=== PATIENT | male | born 1935 | race Caucasian/White ===

== ENCOUNTER → 2016-08-17 | Outpatient (CLI) | payer OTHER ==
[~2016-08-17] MED LIST: ALFU10TA30 PO; CALC-20 PO; CALCTAB5 PO; ECRCR; GLCSUNK; GLUC10007 PO; MONT1TAB3 PO; NAPR1TAB9 PO; OMEG10007 PO; OXYC-57 PO; POLY1SOL6 OPB; PSYLCAP5 PO; SYSTANE ULTRA EYE OPB; metamucil PO
--- NOTE | 2016-08-23 08:18 | CODING QUERY MEDICAL NECESSITY ---
SUPPORTING DIAGNOSIS NEEDED A supporting diagnosis is required for the test/procedure performed on this patient in order for us to be reimbursed by the patient's insurance. Please provide a supporting diagnosis for the following test/procedure listed below next to the test name along with your signature. *If there is no additional diagnosis for this patient that would support the following test/procedure please document that below next to the test/procedure. Test(s)/Procedure(s) that require a supporting diagnosis: * PSA DIAGNOSIS: * DOS: 08/17/16 Provider Signature: Date: Thank you Kavitha Franco [employer] Once completed, please kindly fax back to [phone] For questions please call [phone]
== END | disposition home or self-care (01) ==
LOC: C.LABPVFM 11:07
PROVIDERS: ATTEND Urology
DX: R39.9 Unspecified symptoms and signs involving the genitourinary system (principal); C61 Malignant neoplasm of prostate

== ENCOUNTER → 2016-09-30 | Outpatient (CLI) | payer OTHER ==
[~2016-09-30] MED LIST changes: +ALFU10TA2 PO; -ALFU10TA30 PO
--- NOTE | 2016-09-30 13:58 | DIAGNOSTIC IMAGING REPORT ---
CHEST 2 VIEWS ROUTINE HISTORY: COUGH COMPARISON: Chest 05/28/2015. FINDINGS: No pleural effusions. No pneumothorax. Left basilar calcified pleural plaques are again noted. The heart is normal in size. Progressive interstitial thickening. This is most pronounced within the periphery and lung bases. This suggests fibrotic change. There is also a small peripheral airspace opacity within the right mid to lower lung zone. This is new from the prior study. IMPRESSION: 1. Progressive interstitial thickening suggestive of fibrosis. 2. There is also a new small peripheral airspace opacity within the right mid to lower lung zone. This could be due to the fibrotic change. However, a superimposed pneumonia would also have a similar appearance. One month chest x-ray follow is recommended to ensure resolution. Electronically signed by: Hossein Hurd M.D. 09/30/2016 1:56 PM Dictated Date/Time: 09/30/2016 1:51 PM
== END | disposition home or self-care (01) ==
LOC: C.RADPV 13:39
PROVIDERS: ATTEND Family Medicine
DX: R05 Cough (principal)

== ENCOUNTER → 2016-11-29 | Outpatient (CLI) | payer OTHER ==
--- NOTE | 2016-11-29 14:46 | DIAGNOSTIC IMAGING REPORT ---
CHEST 2 VIEWS ROUTINE CLINICAL HISTORY: Abnormal chest radiograph. COMPARISON STUDY: Chest radiograph September 30, 2016. FINDINGS: Several pleural plaques are noted. A 2.8 cm left lower lung density likely reflects a pleural plaque. There has been interval development of a 1.6 cm nodular opacity within left upper lobe since exam of September 30, 2016. The previously described opacity within the lateral aspect of the right midlung is less conspicuous. Cardiac size is normal. There is no evidence of pulmonary edema. Diffuse interstitial thickening is noted. There is no pneumothorax or pleural effusion. IMPRESSION: 1. Mild improvement in the peripheral airspace opacity within the right mid lung since prior exam. This favors an improving infectious process, possibly superimposed upon interstitial lung disease. 2. Interval development of a 1.6 cm nodular density within left lung apex. This favors an infectious process. However, PA and lateral radiographs in one month are recommended to ensure resolution. Electronically signed by: Arsh Vázquez M.D. 11/29/2016 2:44 PM Dictated Date/Time: 11/29/2016 2:37 PM
== END | disposition home or self-care (01) ==
LOC: C.RADPV 14:15
PROVIDERS: ATTEND Family Medicine
DX: R93.8 Abnormal findings on diagnostic imaging of other specified body structures (principal)

== ENCOUNTER → 2016-12-07 | Outpatient (CLI) | payer OTHER ==
--- NOTE | 2016-12-07 10:14 | DIAGNOSTIC IMAGING REPORT ---
CHEST CT WITHOUT CONTRAST CT DOSE: 307.93 mGy.cm HISTORY: Asbestos exposure R91.1 Lung nodule History of asbestos [id number] TECHNIQUE: Multiaxial CT images of the chest were performed without contrast. COMPARISON: None. FINDINGS: Emphysematous change. Chronic fibrotic change throughout the right basilar regions as well as mid to upper lung regions bilaterally. No evidence for significant nodular pathology. Calcified pleural plaques over the left diaphragmatic region. IMPRESSION: 1. Emphysematous change with evidence for interstitial and fibrotic change throughout both hemithoraces. 2. The bulk of these findings are most likely chronic although prior studies are not directly available for comparison. 3. Calcified pleural plaques overlying the left diaphragm Electronically signed by: Efrem Machuca M.D. 12/07/2016 10:13 AM Dictated Date/Time: 12/07/2016 10:11 AM
== END | disposition home or self-care (01) ==
LOC: C.CTS 09:48
PROVIDERS: ATTEND Family Medicine
DX: R91.1 Solitary pulmonary nodule (principal); J92.9 Pleural plaque without asbestos

== ENCOUNTER 2016-12-08 20:58 | Inpatient (IN) | payer OTHER ==
[~2016-12-08] VITALS: Ht 180.3 cm; Wt 76.1 kg
[~2016-12-08 20:58] MED LIST changes: -CALC-20 PO; -GLUC10007 PO; -OXYC-57 PO; -POLY1SOL6 OPB; -PSYLCAP5 PO
--- NOTE | 2016-12-08 22:10 | EMERGENCY ROOM VISIT NOTE ---
History Report prepared by Ronnie: Sharan Viera Under the Supervision of: Dr. Domingo Reid D.O. First contact with patient: 21:45 Chief Complaint: URINARY SYMPTOMS Stated Complaint: LOWER ABDOMINAL PAIN Nursing Triage Summary: "I think my bladder is overfull. I haven't peed much today and I'm having a lot of pain down there", started today. Pt reports prastate CA, "I've always had a weak stream, but after radiation it got worse". History of Present Illness The patient is an 81 year old male who presents to the Emergency Room with complaints of constant, suprapubic, abdominal pain beginning 4.5 hours ago. He currently rates his discomfort an 8/10 in severity. The patient states that he was siting at the dinner table eating, and all of a sudden he had excruciating pain in his suprapubic abdominal region. He reports that he tried using the restroom, and he could not. The patient notes that he was finally able to have a bowel movement, but he did not urinate as much as normal. He states that he has not been able to urinate all day. The patient reports he has a history of prostate cancer and received chemotherapy, and radiation. He notes that last time he had a catheter in was when he was going through treatment. The patient states that he saw his urologist 2 months ago. He notes that he was recently taking antibiotics for influenza and pneumonia. The patient reports that he is taking prostate medication, but no blood thinners. He denies back pain. Source of History: patient Onset: 4.5 hours ago Position: abdomen (suprapubic) Symptom Intensity: 8/10 Timing: constant Associated Symptoms: + urinary symptoms, No back pain Review of Systems See HPI for pertinent positives & negatives. A total of 10 systems reviewed and were otherwise negative. Past Medical & Surgical Medical Problems: (1) Prostate cancer Surgical Problems: (1) S/P inguinal hernia repair Family History Heart disease Social History Smoking Status: Former Smoker Alcohol Use: other (1 glass of wine daily) Housing Status: lives with significant other Occupation Status: retired Current/Historical Medications Scheduled Alfuzosin Hcl (Uroxatral), 10 MG PO DAILY Calcium Carbonate-Vitamin D (Calcium 600 + D), 1 TAB PO BID Fish Oil ([place]-3), 1 CAP PO QAM Glucosamine Sulfate (Glucosamine), 1,000 MG PO BID Montelukast Sodium (Singulair), 10 MG PO DAILY Naproxen (Aleve), 220 MG PO prn Polyethylene Glycol-Propylene (Systane Ultra), 1 DROPS OPB BID Psyllium W/ Calcium (Metamucil Plus Calcium), 2 CAP PO HS Allergies Coded Allergies: Gluten Flour (Verified Allergy, Intermediate, rash, 12/08/16) Physical Exam Vital Signs Date Time Temp Pulse Resp B/P (MAP) Pulse Ox O2 Delivery O2 Flow Rate FiO2 12/09/16 04:00 90 18 142/74 (71) 94 Room Air 12/09/16 03:50 92 19 121/66 (71) 95 Room Air 12/09/16 03:40 85 17 114/64 (71) 96 Nasal Cannula 2 12/09/16 03:30 36.0 88 17 106/71 (71) 100 Mask 4 12/09/16 00:01 78 16 149/91 96 Room Air 12/08/16 23:58 74 16 12/08/16 23:28 68 14 152/96 12/08/16 23:27 72 12/08/16 23:26 85 18 152/96 97 Room Air 12/08/16 21:00 36.5 77 18 179/87 96 Room Air Physical Exam GENERAL: Patient is awake, alert, and in no acute distress. Patient is resting comfortably and showing no signs of anxiety EYES: The conjunctivae are clear. The pupils are round and reactive. EARS, NOSE, MOUTH AND THROAT: The nose is without any evidence of any deformity. Mucous membranes are moist tongue is midline NECK: The neck is nontender and supple. RESPIRATORY: Normal respiratory effort is noted there is no evidence of wheezing rhonchi or rales CARDIOVASCULAR: Regular rate and rhythm noted there no murmurs rubs or gallops normal S1 normal S2 GASTROINTESTINAL: The abdomen is soft and mildly distended. Suprapubic abdomen is tender to palpation. Bowel sounds are present in all quadrants. Right inguinal hernia appreciated, difficult to reduce, patient has a large amount of tenderness to this area. BACK: No midline tenderness or or step-off noted range of motion in flexion extension as well as rotation no signs of muscle spasm noted MUSCULOSKELETAL/EXTREMITIES: There is no evidence of gross deformity full range of motion is noted in the hips and shoulders SKIN: There is no obvious evidence of any rash. There are no petechiae, pallor or cyanosis noted. NEUROLOGIC: Patient is awake alert and oriented x3 strength is symmetric patellar reflexes are 2+ bilaterally Medical Decision & Procedures ER Provider Diagnostic Interpretation: CT results as stated below per my review and radiologist interpretation. CT ABDOMEN & PELVIS Right inguinal hernia containing small bowel with resultant small bowel obstruction. Small bowel within the right inguinal hernia appears mildly thickened with small adjacent fluid and stranding which can be seen in the setting of incarceration and/or strangulation. No pneumatosis or free air. Recommended clinical correlation and surgical consultation for further management. Interstitial prominence in the visualized lung bases (R>L) which may be related to chronic lung disease although superimposed acute interstitial process is not excluded. Pleural based calcifications in the visualized lower thorax. Correlate for history of asbestos exposure. Postsurgical changes in the prostate bed. Osseous degenerative changes and scoliosis of the spine. Atherosclerotic vascular disease. No AAA. Radiologist: Honey Lawrence MD Study ready at 23:45 and inital results transmitted at 00:27. Laboratory Results 12/08/16 23:15 Red Blood Count 3.98, Mean Corpuscular Volume 93.5, Mean Corpuscular Hemoglobin 32.7, Mean Corpuscular Hemoglobin Concent 34.9, Mean Platelet Volume 8.5, Neutrophils (%) (Auto) 88.7, Lymphocytes (%) (Auto) 7.4, Monocytes (%) (Auto) 3.0, Eosinophils (%) (Auto) 0.2, Basophils (%) (Auto) 0.2, Neutrophils # (Auto) 8.07, Lymphocytes # (Auto) 0.67, Monocytes # (Auto) 0.27, Eosinophils # (Auto) 0.02, Basophils # (Auto) 0.02 12/08/16 23:15 Test 12/08/16 22:36 12/08/16 23:15 Urine Color YELLOW Urine Appearance CLEAR (CLEAR) Urine pH 5.5 (4.5-7.5) Urine Specific [place] 1.026 (1.000-1.030) Urine Protein NEG (NEG) Urine Glucose (UA) NEG (NEG) Urine Ketones 1+ (NEG) Urine Occult Blood NEG (NEG) Urine Nitrite NEG (NEG) Urine Bilirubin NEG (NEG) Urine Urobilinogen NEG (NEG) Urine Leukocyte Esterase NEG (NEG) Urine WBC (Auto) 1-5 /hpf (0-5) Urine RBC (Auto) 0-4 /hpf (0-4) Urine Hyaline Casts (Auto) 1-5 /lpf (0-5) Urine Epithelial Cells (Auto) 20-30 /lpf (0-5) Urine Bacteria (Auto) NEG (NEG) White Blood Count 9.10 K/uL (4.8-10.8) Red Blood Count 3.98 M/uL (4.7-6.1) Hemoglobin 13.0 g/dL (14.0-18.0) Hematocrit 37.2 % (42-52) Mean Corpuscular Volume 93.5 fL (80-100) Mean Corpuscular Hemoglobin 32.7 pg (25-34) Mean Corpuscular Hemoglobin Concent 34.9 g/dl (32-36) Platelet Count 237 K/uL (130-400) Mean Platelet Volume 8.5 fL (7.4-10.4) Neutrophils (%) (Auto) 88.7 % Lymphocytes (%) (Auto) 7.4 % Monocytes (%) (Auto) 3.0 % Eosinophils (%) (Auto) 0.2 % Basophils (%) (Auto) 0.2 % Neutrophils # (Auto) 8.07 K/uL (1.4-6.5) Lymphocytes # (Auto) 0.67 K/uL (1.2-3.4) Monocytes # (Auto) 0.27 K/uL (0.11-0.59) Eosinophils # (Auto) 0.02 K/uL (0-0.5) Basophils # (Auto) 0.02 K/uL (0-0.2) RDW Standard Deviation 48.3 fL (36.4-46.3) RDW Coefficient of Variation 14.0 % (11.5-14.5) Immature Granulocyte % (Auto) 0.5 % Immature Granulocyte # (Auto) 0.05 K/uL (0.00-0.02) Prothrombin Time 11.5 SECONDS (9.0-12.0) Prothromb Time International Ratio 1.1 (0.9-1.1) Activated Partial Thromboplast Time 25.0 SECONDS (21.0-31.0) Partial Thromboplastin Ratio 1.0 Anion Gap 8.0 mmol/L (3-11) Est Creatinine Clear Calc Drug Dose 57.0 ml/min Estimated GFR () 73.1 Estimated GFR (Non- 63.1 BUN/Creatinine Ratio 19.4 (10-20) Calcium Level 8.9 mg/dl (8.5-10.1) Total Bilirubin 0.5 mg/dl (0.2-1) Direct Bilirubin 0.1 mg/dl (0-0.2) Aspartate Amino Transf (AST/SGOT) 23 U/L (15-37) Alanine Aminotransferase (ALT/SGPT) 24 U/L (12-78) Alkaline Phosphatase 59 U/L (45-117) Total Protein 8.1 gm/dl (6.4-8.2) Albumin 4.1 gm/dl (3.4-5.0) Lipase 107 U/L (73-393) Laboratory results per my review. Medications Administered Medications (Trade) Dose Ordered Sig/Giovanny Route Start Time Stop Time Status Last Admin Dose Admin Sodium Chloride 1,000 ml @ 999 mls/hr Q1H1M STAT IV 12/08/16 22:53 12/08/16 23:53 DC 12/08/16 23:23 999 MLS/HR Ondansetron HCl (Zofran Inj) 4 mg NOW STAT IV 12/08/16 22:53 12/08/16 22:55 DC 12/08/16 23:23 4 MG Morphine Sulfate (MoRPHine SULFATE INJ) 4 mg Q15M PRN IV 12/08/16 23:00 12/09/16 04:34 DC 12/08/16 23:23 4 MG Bupivacaine HCl (Marcaine 0.5% MPF Inj) 30 ml STK-MED ONCE .ROUTE 12/09/16 00:51 12/09/16 00:52 DC 12/09/16 03:15 24 ML ED Course 2151: The patient was evaluated in room A03. A complete history and physical examination were performed. 2253: Ordered Zofran Inj 4mg IV, NSS 1,000 ml @ 999 mls/hr IV 2300: Ordered Morphine Sulfate 4mg IV 0000: I discussed the patients case with Dr. Alonso, General Surgery. He will evaluate the patient for further treatment. Medical Decision Differential diagnosis: Etiologies such as appendicitis, diverticulitis, PUD, biliary pathology, UTI, pancreatitis, obstruction, mesenteric ischemia, aortic pathology, infections, inflammatory bowel disease, renal colic, as well as others were entertained. Medication Reconciliation: I attest that I have personally reviewed the patient' s current medications list. Patient was found to have a slightly elevated blood pressure due to circumstances. I do not believe that the patient requires hypertension monitoring. The patient is an 81-year-old male who presented to the emergency department with difficulty urinating. The patient states he had a large bowel movement afterwards had difficulty urinating. He thought he was in urinary retention however cath urine as well as bladder scan revealed he was not in urinary retention. He was found have a large inguinal hernia which on CAT scan appears to have signs of small bowel instruction. He had surgical repair of this area and I do feel this is why I was unable to reduce the hernia. I discussed his case with the on-call general surgeon. He was treated with IV fluids IV pain medicine and IV antiemetics. He was evaluated in the emergency apartment and felt to be a candidate for surgical intervention. Consults Time Called: [id number] Consulting Physician: Dr. Alonso, General Surgery Returned Call: 0000 I discussed the patients case with Dr. Alonso, General Surgery. He will evaluate the patient for further treatment. Impression Primary Impression: Incarcerated right inguinal hernia Additional Impression: Small bowel obstruction Scribe Attestation The scribe's documentation has been prepared under my direction and personally reviewed by me in its entirety. I confirm that the note above accurately reflects all work, treatment, procedures, and medical decision making performed by me. Departure Information Dispostion Being Evaluated By Surgeon Referrals No Doctor, Assigned (PCP) Patient Instructions My [facility] Problem Qualifiers
[2016-12-08] MEDS ORDERED: POLY1SOL6 OPB (22:45)
[2016-12-08] MEDS ORDERED: CALC-20 PO (22:45)
[2016-12-08] MEDS ORDERED: PSYLCAP5 PO (22:45)
[2016-12-08] MEDS ORDERED: GLUC10007 PO (22:45)
[2016-12-08 22:51] LABS: URINE APPEARANCE CLEAR (CLEAR); URINE BILIRUBIN NEG (NEG); URINE COLOR YELLOW; URINE EPITHELIAL CELL AUTO 20-30 /lpf (0-5); URINE NITRITE NEG (NEG); URINE PH 5.5 (4.5-7.5); URINE SPECIFIC GRAVITY 1.026 (1.000-1.030); UROBILINOGEN NEG (NEG)
[2016-12-08 22:52] LABS: MANUAL MICROSCOPIC REQUIRED? NO; REVIEW REQ? NO
[2016-12-08] MEDS ORDERED: SODIUM CHLORIDE 0.9% 1000ML 1,000 ML IV STA (22:53)
[2016-12-08] MEDS ORDERED: ONDANSETRON INJ 2 MG/ML 2 ML VIAL IV STA (22:53)
[2016-12-08] MEDS ORDERED: MoRPHine SULFATE 4 MG/ML 1 ML CARP\\VIAL IV PRN (23:00)
[2016-12-08 23:31] LABS: BASO % 0.2 %; BASO ABS # 0.02 K/uL (0-0.2); COMPLETE YES; EOS % 0.2 %; HEMATOCRIT 37.2 % (42-52); IG% 0.5 %; LYMPH % 7.4 %; LYMPH ABS # 0.67 K/uL (1.2-3.4); MEAN CELL VOLUME 93.5 fL (80-100); MEAN CORPUSCULAR HEMOGLOBIN 32.7 pg (25-34); MEAN CORPUSCULAR HGB CONC 34.9 g/dl (32-36); MEAN PLATELET VOLUME 8.5 fL (7.4-10.4); NEUT % 88.7 %; PLATELET COUNT 237 K/uL (130-400); RED BLOOD COUNT 3.98 M/uL (4.7-6.1)
[2016-12-08 23:40] LABS: INR 1.1 (0.9-1.1); PROTHROMBIN TIME (PATIENT) 11.5 SECONDS (9.0-12.0)
[2016-12-08 23:52] LABS: BUN/CREATININE RATIO 19.4 (10-20); CALCIUM 8.9 mg/dl (8.5-10.1); CREATININE 1.1 mg/dl (0.60-1.40); POTASSIUM 4.2 mmol/L (3.5-5.1)
[2016-12-09] VITALS (8 sets, daily range): BP systolic 116–161; BP diastolic 57–74; PULSE 70–85; TEMP 36.4–37; O2SAT 94–96; Ht 180.3 cm; Wt 76.1 kg
--- NOTE | 2016-12-09 00:42 | History and Physical ---
History & Physical Date & Time of Service: Dec 09, 2016 at 00:19 Chief Complaint: Lower Abdominal Pain Primary Care Physician: Jhonatan Jennings M.D. History of Present Illness Source: patient, spouse 81 y/o male developed abdominal pain in the lower abdomen that began about 7 hours ago. It was mostly midline initially. He was having trouble passing his urine as well. He had a normal bm without blood or melena. He had a hernia repair on the right side in 1989. He has noted a recurrence for a long time but it was always reducible. He noted that the hernia is now protruding farther than it usually does and is harder. It is tender to palpation and that is usually not the case. He had nausea earlier and had one episode of vomiting. He has not had fever. He denies dysuria and hematuria. Catheter passed in ER with drainage of 275 cc. Past Medical/Surgical History Medical Problems: (1) Prostate cancer Permanent Comment: Adenocarcinoma the prostate presenting PSA 1.0, clinical stage T2 [id number] Status post biopsies, Mccool grade 3+3, biopsy stage [id number] Status post seed implant for cesium 131 on 01/08/2008 received 8500 cGy Status post completion of radiation therapy with IMRT/IGRT completed 04/11/2008 received 4500 cGy Status: Resolved PSH: T&A Right inguinal hernia repair Family History Heart disease Social History Smoking Status: Former Smoker Smokeless Tobacco Use: No Alcohol Use: Red wine with dinner Occupational Status: retired Multi-Drug Resistant Organisms History of MDRO: No Allergies Coded Allergies: Gluten Flour (Verified Allergy, Intermediate, rash, 12/08/16) Home Medications Scheduled Alfuzosin Hcl (Uroxatral), 10 MG PO DAILY Calcium Carbonate-Vitamin D (Calcium 600 + D), 1 TAB PO BID Fish Oil ([place]-3), 1 CAP PO QAM Glucosamine Sulfate (Glucosamine), 1,000 MG PO BID Montelukast Sodium (Singulair), 10 MG PO DAILY Naproxen (Aleve), 220 MG PO prn Polyethylene Glycol-Propylene (Systane Ultra), 1 DROPS OPB BID Psyllium W/ Calcium (Metamucil Plus Calcium), 2 CAP PO HS Review of Systems Constitutional: No fever, No chills Cardiovascular: No chest pain Abdomen: + problem reported (as per HPI) Genitourinary - Male: + problem reported (as per HPI) Neurologic: No memory loss Endocrine: No fatigue Hematologic / Lymphatic: No abnormal bleeding/bruising Integumentary: No rash Physical Exam Vital Signs Date Time Temp Pulse Resp B/P (MAP) Pulse Ox O2 Delivery O2 Flow Rate FiO2 12/09/16 00:01 78 16 149/91 96 Room Air 12/08/16 23:58 74 16 12/08/16 23:28 68 14 152/96 12/08/16 23:27 72 12/08/16 23:26 85 18 152/96 97 Room Air 12/08/16 21:00 36.5 77 18 179/87 96 Room Air General Appearance: WD/WN Head: normocephalic Neck: supple, no adenopathy Respiratory/Chest: chest non-tender, lungs clear Cardiovascular: regular rate, rhythm Abdomen/GI: normal bowel sounds, soft, + pertinent finding (right inguinal hernia not reducible, firm) Genitourinary - Male: normal male genitalia Back: normal inspection, no CVA tenderness Extremities/Musculoskelatal: normal inspection Diagnostics Laboratory Results Results Past 24 Hours Test 12/08/16 22:36 12/08/16 23:15 Range/Units Urine Color YELLOW Urine Appearance CLEAR CLEAR Urine pH 5.5 4.5-7.5 Urine Specific [place] 1.026 1.000-1.030 Urine Protein NEG NEG Urine Glucose (UA) NEG NEG Urine Ketones 1+ NEG Urine Occult Blood NEG NEG Urine Nitrite NEG NEG Urine Bilirubin NEG NEG Urine Urobilinogen NEG NEG Urine Leukocyte Esterase NEG NEG Urine WBC (Auto) 1-5 0-5 /hpf Urine RBC (Auto) 0-4 0-4 /hpf Urine Hyaline Casts (Auto) 1-5 0-5 /lpf Urine Epithelial Cells (Auto) 20-30 0-5 /lpf Urine Bacteria (Auto) NEG NEG White Blood Count 9.10 4.8-10.8 K/uL Red Blood Count 3.98 4.7-6.1 M/uL Hemoglobin 13.0 14.0-18.0 g/dL Hematocrit 37.2 42-52 % Mean Corpuscular Volume 93.5 80-100 fL Mean Corpuscular Hemoglobin 32.7 25-34 pg Mean Corpuscular Hemoglobin Concent 34.9 32-36 g/dl Platelet Count 237 130-400 K/uL Mean Platelet Volume 8.5 7.4-10.4 fL Neutrophils (%) (Auto) 88.7 % Lymphocytes (%) (Auto) 7.4 % Monocytes (%) (Auto) 3.0 % Eosinophils (%) (Auto) 0.2 % Basophils (%) (Auto) 0.2 % Neutrophils # (Auto) 8.07 1.4-6.5 K/uL Lymphocytes # (Auto) 0.67 1.2-3.4 K/uL Monocytes # (Auto) 0.27 0.11-0.59 K/uL Eosinophils # (Auto) 0.02 0-0.5 K/uL Basophils # (Auto) 0.02 0-0.2 K/uL RDW Standard Deviation 48.3 36.4-46.3 fL RDW Coefficient of Variation 14.0 11.5-14.5 % Immature Granulocyte % (Auto) 0.5 % Immature Granulocyte # (Auto) 0.05 0.00-0.02 K/uL Prothrombin Time 11.5 9.0-12.0 SECONDS Prothromb Time International Ratio 1.1 0.9-1.1 Activated Partial Thromboplast Time 25.0 21.0-31.0 SECONDS Partial Thromboplastin Ratio 1.0 Sodium Level 136 136-145 mmol/L Potassium Level 4.2 3.5-5.1 mmol/L Chloride Level 103 98-107 mmol/L Carbon Dioxide Level 25 21-32 mmol/L Anion Gap 8.0 3-11 mmol/L Blood Urea Nitrogen 21 7-18 mg/dl Creatinine 1.10 0.60-1.40 mg/dl Est Creatinine Clear Calc Drug Dose 57.0 ml/min Estimated GFR () 73.1 Estimated GFR (Non- 63.1 BUN/Creatinine Ratio 19.4 10-20 Random Glucose 140 70-99 mg/dl Calcium Level 8.9 8.5-10.1 mg/dl Total Bilirubin 0.5 0.2-1 mg/dl Direct Bilirubin 0.1 0-0.2 mg/dl Aspartate Amino Transf (AST/SGOT) 23 15-37 U/L Alanine Aminotransferase (ALT/SGPT) 24 12-78 U/L Alkaline Phosphatase 59 45-117 U/L Total Protein 8.1 6.4-8.2 gm/dl Albumin 4.1 3.4-5.0 gm/dl Lipase 107 73-393 U/L Microbiology Results 12/08/16 Urine Culture, Received Pending Diagnostic Radiology CT abdomen and pelvis: Right inguinal hernia containing bowel with resultant SBO proximal to the hernia. Small bowel wall thickening. Impression Assessment and Plan Incarcerated recurrent right inguinal hernia. I explained that this will need to be repaired. I explained the procedure and the possible complications and the possible need to remove bowel if it appears to be compromised. I answered their questions and he has signed a consent form.
[2016-12-09] MEDS ORDERED: LIDOCAINE HCL 1% 20 ML VIAL ONE (00:51)
[2016-12-09] MEDS ORDERED: BUPIVACAINE 0.5 % 5 MG/1 ML MPF 30ML VIAL ONE (00:51)
[2016-12-09] MEDS ORDERED: FENTANYL CITRATE INJ 50 MCG/1 ML 2 ML VIAL ONE ×2 (00:57→03:11)
[2016-12-09] MEDS ORDERED: DEXAMETHASONE SOD INJ 4 MG/ML VIAL ONE (00:59)
[2016-12-09] MEDS ORDERED: PROPOFOL IV EMULSION 10 MG/ML 20 ML VIAL IV ONE (00:59)
[2016-12-09] MEDS ORDERED: SUCCINYLCHOLINE 100MG/5ML SYR IV ONE (00:59)
[2016-12-09] MEDS ORDERED: LIDOCAINE HCL 2% 2 ML VIAL (20MG/ML) ONE (00:59)
[2016-12-09] MEDS ORDERED: ONDANSETRON INJ 2 MG/ML 2 ML VIAL IV PRN ×2 (01:00→04:00)
[2016-12-09] MEDS ORDERED: MEPERIDINE HCL 25 MG/ML CARP IV PRN (01:00)
[2016-12-09] MEDS ORDERED: LABETALOL HCL IV 5 MG/ML 20ML IV PRN (01:00)
[2016-12-09] MEDS ORDERED: NALOXONE HCL 0.4 MG/1 ML VIAL/CARP IV PRN (01:00)
[2016-12-09] MEDS ORDERED: FLUMAZENIL 0.1 MG/1 ML 10 ML VIAL IV PRN (01:00)
[2016-12-09] MEDS ORDERED: ATROPINE SULFATE 0.1 MG/ML 5ML SYR IV PRN (01:00)
[2016-12-09] MEDS ORDERED: FENTANYL CITRATE INJ 50 MCG/1 ML 2 ML VIAL IV PRN (01:00)
[2016-12-09] MEDS ORDERED: PHENYLEPHRINE 100MCG/ML 5ML SYR IV PRN (01:00)
[2016-12-09] MEDS ORDERED: ONDANSETRON INJ 2 MG/ML 2 ML VIAL ONE (01:00)
[2016-12-09] MEDS ORDERED: HYDROmorphone INJ 2 MG/ML SYR/VIAL IV PRN (01:00)
[2016-12-09] MEDS ORDERED: EpHEDrine SULFATE INJ 50 MG/ML AMP IV PRN (01:00)
[2016-12-09] MEDS ORDERED: CEFAZOLIN SOD 1 GM VIAL ONE (01:25)
[2016-12-09] MEDS ORDERED: NEOSTIGMINE METHYLSULFATE 5 MG/5 ML SYR ONE (01:56)
[2016-12-09] MEDS ORDERED: GLYCOPYRROLATE INJ 0.2 MG/ML VIAL ONE (01:56)
--- NOTE | 2016-12-09 03:58 | Anesthesiology Progress Note ---
Anesthesia Post Op Note Date & Time Dec 09, 2016 at 03:57 Vital Signs Pain Intensity: 2 Vital Signs Past 12 Hours Date Time Temp Pulse Resp B/P (MAP) Pulse Ox O2 Delivery O2 Flow Rate FiO2 12/09/16 03:50 92 19 121/66 (71) 95 Room Air 12/09/16 03:40 85 17 114/64 (71) 96 Nasal Cannula 2 12/09/16 03:30 36.0 88 17 106/71 (71) 100 Mask 4 12/09/16 00:01 78 16 149/91 96 Room Air 12/08/16 23:58 74 16 12/08/16 23:28 68 14 152/96 12/08/16 23:27 72 12/08/16 23:26 85 18 152/96 97 Room Air 12/08/16 21:00 36.5 77 18 179/87 96 Room Air Notes Mental Status: alert / awake / arousable, participated in evaluation Pt Amnestic to Procedure: Yes Nausea / Vomiting: adequately controlled Pain: adequately controlled Airway Patency, RR, SpO2: stable & adequate BP & HR: stable & adequate Hydration State: stable & adequate Anesthetic Complications: no major complications apparent
[2016-12-09] MEDS ORDERED: MoRPHine SULFATE 4 MG/ML 1 ML CARP\\VIAL IV PRN (04:00)
--- NOTE | 2016-12-09 04:05 | [facility] Post Operative Brief Note ---
Immediate Operative Summary Operative Date Dec 09, 2016. Pre-Operative Diagnosis Incarcerated recurrent right inguinal hernia Post-Operative Diagnosis Incarcerated recurrent right inguinal hernia Procedure(s) Performed Open Incarcerated Recurrent Direct Right Inguinal Hernia Repair and Reduction; Partial Small Bowel Resection Surgeon Dr. Alonso Net Maker Surgeon(s) None Estimated Blood Loss 20 mL Findings See dictation Specimens A: Right Inguinal Hernia Sac B: Portion of Small Bowel Drains None Anesthesia General Complication(s) None Disposition Recovery Room / PACU
[2016-12-09] MEDS ORDERED: CEFOXITIN 2000MG/60 ML D5W IV STA (04:40)
[2016-12-09] MEDS: D5W AND 1/2NSS + 20MEQ KCL 1,000 ML IV SCH ×2 (05:16→15:18)
--- NOTE | 2016-12-09 06:40 | DIAGNOSTIC IMAGING REPORT ---
CT SCAN OF THE ABDOMEN AND PELVIS WITHOUT CONTRAST CLINICAL HISTORY: Lower abdominal pain COMPARISON STUDY: No previous studies for comparison. TECHNIQUE: CT scan of the abdomen and pelvis was performed from the lung bases to the proximal femurs. Images are reviewed in the axial, sagittal, and coronal planes. IV contrast was not administered for this examination. CT DOSE: 347.00 mGy.cm FINDINGS: Lower chest: There is underlying interstitial lung disease with subpleural reticulation and traction bronchiectasis. There are calcified pleural plaques. Liver: There is a 5 mm hypodensity within the right hepatic lobe. No additional hepatic lesions are evident. Gallbladder: Unremarkable. Spleen: Normal in size and attenuation. Pancreas: Unremarkable. Adrenal glands: Unremarkable. Kidneys: No renal, ureteral, or bladder calculi are visualized. Bowel: There are mildly dilated small bowel loops containing air-fluid levels. There is a right inguinal hernia containing a mildly dilated small bowel loop which appears thickened with adjacent stranding. This may reflect a strangulated hernia. Surgical consultation is recommended. There is colonic diverticulosis. There is no evidence of acute diverticulitis. There is no evidence of acute appendicitis. Peritoneum: There is no intraperitoneal free air or abdominal ascites. Vasculature: The abdominal aorta is normal in course and caliber. Adenopathy: None. 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 Skeletal structures: There is bilateral L5 spondylolysis. There is a grade 2/4 spondylolisthesis of L5 on S1. IMPRESSION: Small bowel obstruction secondary to an incarcerated/strangulated right inguinal hernia. Surgical consultation is recommended. Electronically signed by: Luis E Lugo M.D. 12/09/2016 6:38 AM Dictated Date/Time: 12/09/2016 6:33 AM
--- NOTE | 2016-12-09 08:04 | OPERATIVE REPORT ---
DATE OF OPERATION: 12/09/2016 PREOPERATIVE DIAGNOSIS: Incarcerated recurrent right inguinal hernia. POSTOPERATIVE DIAGNOSES: Recurrent incarcerated direct right inguinal hernia and ischemic small bowel. PROCEDURE: Reduction and repair of incarcerated recurrent direct right inguinal hernia and partial small bowel resection. SURGEON: Dr. Alonso. FINDINGS: The patient had a direct inguinal hernia. There was a thickened sac was some preperitoneal fat attached to it. Within the sac was a loop of small bowel. The defect only measured about 1.5 to 2 cm and was rather tight. The small bowel was initially reduced, but was controlled with a Magnolia and the hernia defect was opened to permit visualization of the bowel. It was left in place for what was felt to be an adequate amount of time and then brought back out through the hernia defect and was still a black-purple color, was felt to be viable and at that point, I made the decision to perform the small bowel resection. There was no direct component. The cord structures were identified and felt to be normal. TECHNIQUE: The patient was given a general anesthetic and the area was prepped and draped in the usual sterile fashion. A right inguinal incision was made, utilizing, for the most part, the scar from the previous hernia repair. It was carried down through the subcutaneous tissue using cautery. There was one bridging vessel that was doubly clamped, divided and ligated using 3-0 Vicryl ties. Further dissection was carried out and I was then able to separate the thickened subcutaneous fat scar tissue away from the hernia sac along the length of the entire incision and was then able to identify the cord structures, isolate them and retract them laterally and separate them away from the surrounding tissues. The internal ring was outside the edge of the external ring. I was then able to reduce the hernia sac out from the superior portion of the scrotum over the pubic tubercle and was brought back up. I then divided layer by layer by layer down to the hernia sac and those layers and removed some of the preperitoneal fat. I then opened the peritoneal sac and was able to identify the small bowel. I had to go to the superior aspect of the defect and open the musculature in order to be able to reduce the small bowel back into the abdomen. I grasped it with a Yobani in order to allow me to identify the area of ischemia. The hernia sac was then dissected down to the ring and the redundant portion of the sac was removed. After an adequate amount of time, I brought the small bowel back out and the hernia was still black and purple and was not felt to be viable. I reduced additional small bowel that was healthy. I then chose an area proximally and distally on healthy small bowel, the mesentery away and divided the small bowel at both of those places. I then divided the mesentery using a clamp, clamp, divide and ligate technique using 3-0 Vicryl ties. The small bowel was approximated to each other using 3-0 stay sutures of silk. The antimesenteric border of each portion of the bowel was removed and the limb of the GLORIA was placed into the lumen of each limb of the bowel and then the GLORIA was fired, performing the anastomosis. The common opening was closed with a TA stapler and the mesentery opening was closed with a running 2-0 Vicryl. I then reduced the small bowel back into the abdomen, again keeping control with a Yobani. After an adequate amount of time, it was reduced in each loop of bowel was felt to be normal. There was a small amount of oozing of arterial blood from the staple line that was easily controlled with cautery, which was encouraging that the bowel was well vascularized. This was placed back into its anatomic position and the peritoneal opening was closed with a running 2-0 Vicryl. Further dissection away from the edge of the fascial defect was performed and the hernia sac that remained was placed back up below the fascial defect. Because I had opened the bowel, I decided not to use mesh. The conjoined tendon was closed to the inguinal ligament and Coopers ligament using interrupted 0 Prolene closing the entire defect. The cord structures were placed back into their anatomic position. The deep subcutaneous tissue was closed with running 2-0 Vicryl, the superficial subcutaneous tissue was closed with running 3-0 Vicryl and the skin was closed with 4-0 Monocryl in a running subcuticular fashion. The skin was anesthetized with 0.5% Marcaine and an ilioinguinal block was performed with that same local. The skin was cleansed, dried, benzoin placed, Steri-Strips applied. The estimated blood loss was 20 mL. Sponge, needle and instrument counts were correct prior to closure. The patient tolerated the surgical procedure without complication and was transferred to recovery. I attest to the content of the Intraoperative Record and any orders documented therein. Any exceptions are noted below. KVNGD
--- NOTE | 2016-12-09 08:37 | Surgery Progress Note ---
Surgery Progress Note Date of Service Dec 09, 2016. Subjective Post OP Day: 0 + feeling well, + complaints (Surgical site pain only), No nausea, No vomiting Objective Vital Signs: Date Time Temp Pulse Resp B/P (MAP) Pulse Ox O2 Delivery O2 Flow Rate FiO2 12/09/16 07:26 36.4 82 18 117/69 (85) 96 Room Air 12/09/16 06:50 36.5 81 17 119/71 (87) 96 Room Air 12/09/16 05:50 36.5 82 18 121/67 (85) 95 Room Air 12/09/16 04:50 36.4 80 19 141/74 (96) 94 Room Air 12/09/16 04:20 Room Air 12/09/16 04:20 Room Air 12/09/16 04:20 36.4 85 17 161/74 (103) 95 Room Air 12/09/16 04:20 Room Air 12/09/16 04:00 90 18 142/74 (71) 94 Room Air 12/09/16 03:50 92 19 121/66 (71) 95 Room Air 12/09/16 03:40 85 17 114/64 (71) 96 Nasal Cannula 2 12/09/16 03:30 36.0 88 17 106/71 (71) 100 Mask 4 12/09/16 00:01 78 16 149/91 96 Room Air 12/08/16 23:58 74 16 12/08/16 23:28 68 14 152/96 12/08/16 23:27 72 12/08/16 23:26 85 18 152/96 97 Room Air 12/08/16 21:00 36.5 77 18 179/87 96 Room Air Abdomen: normal bowel sounds, non distended, soft Incision(s): clean, dry, intact, no erythema Laboratory Results: Results Past 24 Hours Test 12/08/16 22:36 12/08/16 23:15 Range/Units Urine Color YELLOW Urine Appearance CLEAR CLEAR Urine pH 5.5 4.5-7.5 Urine Specific [place] 1.026 1.000-1.030 Urine Protein NEG NEG Urine Glucose (UA) NEG NEG Urine Ketones 1+ NEG Urine Occult Blood NEG NEG Urine Nitrite NEG NEG Urine Bilirubin NEG NEG Urine Urobilinogen NEG NEG Urine Leukocyte Esterase NEG NEG Urine WBC (Auto) 1-5 0-5 /hpf Urine RBC (Auto) 0-4 0-4 /hpf Urine Hyaline Casts (Auto) 1-5 0-5 /lpf Urine Epithelial Cells (Auto) 20-30 0-5 /lpf Urine Bacteria (Auto) NEG NEG White Blood Count 9.10 4.8-10.8 K/uL Red Blood Count 3.98 4.7-6.1 M/uL Hemoglobin 13.0 14.0-18.0 g/dL Hematocrit 37.2 42-52 % Mean Corpuscular Volume 93.5 80-100 fL Mean Corpuscular Hemoglobin 32.7 25-34 pg Mean Corpuscular Hemoglobin Concent 34.9 32-36 g/dl Platelet Count 237 130-400 K/uL Mean Platelet Volume 8.5 7.4-10.4 fL Neutrophils (%) (Auto) 88.7 % Lymphocytes (%) (Auto) 7.4 % Monocytes (%) (Auto) 3.0 % Eosinophils (%) (Auto) 0.2 % Basophils (%) (Auto) 0.2 % Neutrophils # (Auto) 8.07 1.4-6.5 K/uL Lymphocytes # (Auto) 0.67 1.2-3.4 K/uL Monocytes # (Auto) 0.27 0.11-0.59 K/uL Eosinophils # (Auto) 0.02 0-0.5 K/uL Basophils # (Auto) 0.02 0-0.2 K/uL RDW Standard Deviation 48.3 36.4-46.3 fL RDW Coefficient of Variation 14.0 11.5-14.5 % Immature Granulocyte % (Auto) 0.5 % Immature Granulocyte # (Auto) 0.05 0.00-0.02 K/uL Prothrombin Time 11.5 9.0-12.0 SECONDS Prothromb Time International Ratio 1.1 0.9-1.1 Activated Partial Thromboplast Time 25.0 21.0-31.0 SECONDS Partial Thromboplastin Ratio 1.0 Sodium Level 136 136-145 mmol/L Potassium Level 4.2 3.5-5.1 mmol/L Chloride Level 103 98-107 mmol/L Carbon Dioxide Level 25 21-32 mmol/L Anion Gap 8.0 3-11 mmol/L Blood Urea Nitrogen 21 7-18 mg/dl Creatinine 1.10 0.60-1.40 mg/dl Est Creatinine Clear Calc Drug Dose 57.0 ml/min Estimated GFR () 73.1 Estimated GFR (Non- 63.1 BUN/Creatinine Ratio 19.4 10-20 Random Glucose 140 70-99 mg/dl Calcium Level 8.9 8.5-10.1 mg/dl Total Bilirubin 0.5 0.2-1 mg/dl Direct Bilirubin 0.1 0-0.2 mg/dl Aspartate Amino Transf (AST/SGOT) 23 15-37 U/L Alanine Aminotransferase (ALT/SGPT) 24 12-78 U/L Alkaline Phosphatase 59 45-117 U/L Total Protein 8.1 6.4-8.2 gm/dl Albumin 4.1 3.4-5.0 gm/dl Lipase 107 73-393 U/L Microbiology Results 12/08/16 Urine Culture, Received Pending Assessment & Plan S/P repair of recurrent incarcerated direct right inguinal hernia with partial small bowel resection Urinary retention Continue clear liquids for today, increase as tolerated beginning tomorrow Would leave Walker in place today and remove in AM with voiding trial If retention persists may to consult urology Encouraged ambulation
[2016-12-10 00:12] VITALS: BP 123/65; PULSE 71; TEMP 37; O2SAT 95
[2016-12-10 00:14] VITALS: BP 123/65; PULSE 71; TEMP 37; O2SAT 95
[2016-12-10] MEDS: D5W AND 1/2NSS + 20MEQ KCL 1,000 ML IV SCH ×2 (00:42→12:06)
[2016-12-10 03:46] VITALS: BP 128/69; PULSE 67; TEMP 37; O2SAT 96
--- NOTE | 2016-12-10 05:44 | Surgery Progress Note ---
Surgery Progress Note Date of Service Dec 10, 2016. Subjective + feeling well no complaints Objective Vital Signs: Date Time Temp Pulse Resp B/P (MAP) Pulse Ox O2 Delivery O2 Flow Rate FiO2 12/10/16 03:46 37.0 67 16 128/69 (88) 96 Room Air 12/10/16 00:14 37.0 71 16 123/65 (84) 95 Room Air 2.0 12/10/16 00:12 37.0 71 16 123/65 (84) 95 Room Air 12/09/16 23:20 Room Air 12/09/16 18:49 37.0 80 18 145/65 (91) 95 Room Air 12/09/16 15:22 36.7 70 18 116/57 (76) 96 Room Air 12/09/16 15:15 Room Air 12/09/16 07:26 36.4 82 18 117/69 (85) 96 Room Air 12/09/16 07:15 Room Air 12/09/16 06:50 36.5 81 17 119/71 (87) 96 Room Air 12/09/16 05:50 36.5 82 18 121/67 (85) 95 Room Air General Appearance: no apparent distress Respiratory/Chest: no respiratory distress, no accessory muscle use Abdomen: non distended, soft Incision(s): dry, intact Laboratory Results: Results Past 24 Hours Test 12/10/16 04:44 Range/Units Assessment & Plan 12/10/16- doing well, hoyos in place- will d/c- adv diet to full liquids. if unable to void- reinsert hoyos and possibly d/c tomorrow with leg bag
[2016-12-10 06:08] LABS: HEMATOCRIT 32.1 % (42-52); MEAN CELL VOLUME 94.4 fL (80-100); MEAN CORPUSCULAR HEMOGLOBIN 30.9 pg (25-34); MEAN CORPUSCULAR HGB CONC 32.7 g/dl (32-36); MEAN PLATELET VOLUME 8.8 fL (7.4-10.4); PLATELET COUNT 201 K/uL (130-400); WHITE BLOOD COUNT 6.06 K/uL (4.8-10.8)
[2016-12-10 06:30] LABS: BASO % 0.3 %; BASO ABS # 0.02 K/uL (0-0.2); COMPLETE YES; EOS % 3.1 %; IG% 0.3 %; LYMPH % 19.3 %; LYMPH ABS # 1.17 K/uL (1.2-3.4); MONO % 15.8 %; NEUT % 61.2 %
[2016-12-10 07:25] VITALS: BP 118/62; PULSE 61; TEMP 36.8; O2SAT 95
[2016-12-10] MEDS: DOCUSATE SODIUM/SENNA 50/8.6MG TAB PO SCH ×2 (07:43→20:43)
[2016-12-10] MEDS: OXYCODONE/ACETAMINOPHEN 5-325 TAB PO PRN ×2 (07:43→17:20)
[2016-12-10 14:46] VITALS: BP 122/72; PULSE 69; TEMP 36.5; O2SAT 97
[2016-12-10] MEDS: MAGNESIUM HYDROXIDE SUSP 30 ML UDC PO SCH (20:44)
[2016-12-10 23:35] VITALS: BP 122/72; PULSE 70; TEMP 37; O2SAT 93
[2016-12-11] MEDS: D5W AND 1/2NSS + 20MEQ KCL 1,000 ML IV SCH (03:58)
[2016-12-11 06:57] LABS: BASO % 0.4 %; BASO ABS # 0.02 K/uL (0-0.2); COMPLETE YES; EOS % 5.3 %; HEMATOCRIT 33.9 % (42-52); IG% 0.2 %; LYMPH % 18.4 %; LYMPH ABS # 1.04 K/uL (1.2-3.4); MEAN CELL VOLUME 94.4 fL (80-100); MEAN CORPUSCULAR HEMOGLOBIN 30.4 pg (25-34); MEAN CORPUSCULAR HGB CONC 32.2 g/dl (32-36); MEAN PLATELET VOLUME 8.6 fL (7.4-10.4); MONO % 15.4 %; NEUT % 60.3 %; PLATELET COUNT 219 K/uL (130-400); RED BLOOD COUNT 3.59 M/uL (4.7-6.1); WHITE BLOOD COUNT 5.65 K/uL (4.8-10.8)
[2016-12-11] MEDS: DOCUSATE SODIUM/SENNA 50/8.6MG TAB PO SCH ×2 (07:16→20:58)
[2016-12-11] MEDS: OXYCODONE/ACETAMINOPHEN 5-325 TAB PO PRN (07:16)
[2016-12-11] MEDS: MAGNESIUM HYDROXIDE SUSP 30 ML UDC PO SCH ×2 (07:16→20:58)
[2016-12-11 07:36] VITALS: BP 110/57; PULSE 69; TEMP 36.8; O2SAT 94
--- NOTE | 2016-12-11 11:29 | Surgery Progress Note ---
Surgery Progress Note Date of Service Dec 11, 2016. Subjective some flatus, no bm feels ok Objective Vital Signs: Date Time Temp Pulse Resp B/P (MAP) Pulse Ox O2 Delivery O2 Flow Rate FiO2 12/11/16 07:36 36.8 69 18 110/57 (74) 94 Room Air 12/11/16 07:30 Room Air 12/10/16 23:35 37.0 70 16 122/72 (89) 93 Room Air 12/10/16 20:30 Room Air 12/10/16 16:45 Room Air 12/10/16 14:46 36.5 69 16 122/72 (89) 97 Room Air General Appearance: no apparent distress Respiratory/Chest: no respiratory distress Abdomen: soft Incision(s): intact Laboratory Results: Results Past 24 Hours Test 12/11/16 06:14 Range/Units White Blood Count 5.65 4.8-10.8 K/uL Red Blood Count 3.59 4.7-6.1 M/uL Hemoglobin 10.9 14.0-18.0 g/dL Hematocrit 33.9 42-52 % Mean Corpuscular Volume 94.4 80-100 fL Mean Corpuscular Hemoglobin 30.4 25-34 pg Mean Corpuscular Hemoglobin Concent 32.2 32-36 g/dl Platelet Count 219 130-400 K/uL Mean Platelet Volume 8.6 7.4-10.4 fL Neutrophils (%) (Auto) 60.3 % Lymphocytes (%) (Auto) 18.4 % Monocytes (%) (Auto) 15.4 % Eosinophils (%) (Auto) 5.3 % Basophils (%) (Auto) 0.4 % Neutrophils # (Auto) 3.41 1.4-6.5 K/uL Lymphocytes # (Auto) 1.04 1.2-3.4 K/uL Monocytes # (Auto) 0.87 0.11-0.59 K/uL Eosinophils # (Auto) 0.30 0-0.5 K/uL Basophils # (Auto) 0.02 0-0.2 K/uL RDW Standard Deviation 49.1 36.4-46.3 fL RDW Coefficient of Variation 14.2 11.5-14.5 % Immature Granulocyte % (Auto) 0.2 % Immature Granulocyte # (Auto) 0.01 0.00-0.02 K/uL Assessment & Plan 12/11/16- POD #2 incarc Ing hernia repair w/ sb resection- doing well, probable d/c tomorrow 12/10/16- doing well, hoyos in place- will d/c- adv diet to full liquids. if unable to void- reinsert hoyos and possibly d/c tomorrow with leg bag 12/10/16- doing well, hoyos in place- will d/c- adv diet to full liquids. if unable to void- reinsert hoyos and possibly d/c tomorrow with leg bag
[2016-12-11 15:01] VITALS: BP 138/71; PULSE 73; TEMP 36.4; O2SAT 96
[2016-12-11 23:00] VITALS: BP 132/73; PULSE 69; TEMP 37.1; O2SAT 95
[2016-12-12 07:33] VITALS: BP 111/68; PULSE 71; TEMP 36.5; O2SAT 94
[2016-12-12] MEDS: DOCUSATE SODIUM/SENNA 50/8.6MG TAB PO SCH (09:00)
[2016-12-12] MEDS: MAGNESIUM HYDROXIDE SUSP 30 ML UDC PO SCH (09:00)
[2016-12-12 15:57] VITALS: BP 122/76; PULSE 68; TEMP 36.5; O2SAT 96
[2016-12-12] MEDS ORDERED: OXYC-57 PO (16:05)
--- NOTE | 2016-12-12 16:07 | Surgery Progress Note ---
Surgery Progress Note Date of Service Dec 12, 2016. Subjective Post OP Day: 3 + feeling well, + bowel movement, + flatus, + diet (tolerated regular diet), No nausea, No vomiting Objective Vital Signs: Date Time Temp Pulse Resp B/P (MAP) Pulse Ox O2 Delivery O2 Flow Rate FiO2 12/12/16 15:57 36.5 68 16 122/76 (91) 96 Room Air 12/12/16 08:00 Room Air 12/12/16 07:33 36.5 71 19 111/68 (82) 94 Room Air 12/11/16 23:35 Room Air 12/11/16 23:00 37.1 69 16 132/73 (92) 95 Room Air Abdomen: non tender, non distended, soft Incision(s): clean, dry, intact, no erythema Assessment & Plan S/P repair of recurrent incarcerated direct right inguinal hernia with partial small bowel resection Urinary retention resolved Bowels moving, tolerating regular diet Can D/C to home Instructions discussed S/P repair of recurrent incarcerated direct right inguinal hernia with partial small bowel resection Urinary retention Continue clear liquids for today, increase as tolerated beginning tomorrow Would leave Walker in place today and remove in AM with voiding trial If retention persists may to consult urology Encouraged ambulation
--- NOTE | 2016-12-12 16:09 | Discharge Instructions ---
Discharge Instructions Date of Service Dec 12, 2016. Admission Reason for Admission: Incarcerated Right Inguinal Hernia Discharge Discharge Diagnosis / Problem: Incarcerated recurrent right inguinal hernia with small bowel obstruction Discharge Goals Goal(s): Decrease discomfort Activity Recommendations Activity Limitations: as noted below No heavy lifting over 10 pounds for 6 weeks no strenuous activity until cleared by surgeon walking and light activity is encouraged no driving while taking narcotic pain medication or until you are pain free no submerging incision underwater for 2 weeks . Instructions / Follow-Up Instructions / Follow-Up You may remove dressing tomorrow and shower Leave steri strips on for 10 days, they may fall off before that is okay Follow-up with Dr. Alonso in 2 weeks, please call office at [phone] to make an appointment Current Hospital Diet Patient's current hospital diet: Low Fiber Diet Discharge Diet Recommended Diet: Regular Diet, Low Fiber Diet Procedures Procedures Performed: Open Incarcerated Recurrent Direct Right Inguinal Hernia Repair and Reduction; Partial Small Bowel Resection Pending Studies Studies pending at discharge: no Medical Emergencies . Who to Call and When: Medical Emergencies: If at any time you feel your situation is an emergency, please call 911 immediately. . Non-Emergent Contact Non-Emergency issues call your: Primary Care Provider, Surgeon Call Non-Emergent contact if: you have a fever, temperature is above 100.5, your pain is not controlled, your pain is worsening, wound has increased drainage, wound has increased redness, wound has increased pain . "Provider Documentation" section prepared by Sandhya Adorno. . VTE Core Measure Inpt VTE Proph given/why not?: SCD's [place] Drug Monitoring Program Search Results: patient reviewed within database, no issues identified
[2016-12-12 16:12] VITALS: BP 122/76; PULSE 68; TEMP 36.5; O2SAT 96
--- NOTE | 2016-12-13 12:43 | Discharge Summary ---
Discharge Summary Dates Admission Date / Time: Dec 09, 2016 at 04:04 Discharge Date: Dec 12, 2016 Dispostion / Condition Discharge Disposition: Home Condition at Discharge: Good Principal Diagnosis (1) Recurrent inguinal hernia of right side with obstruction Consultations / Procedures Consultations: None Procedures: Open right inguinal herniorrhaphy with small bowel resection Pending Studies / Follow-Up None Medication Reconciliation New Medications: Oxycodone/Acetaminophen 5MG/325MG (Percocet 5MG/325MG) Tab 1 TABLET PO Q4H PRN for Pain, #18 TAB Continued Medications: Alfuzosin Hcl (Uroxatral) 10 Mg Tab 10 MG PO DAILY, TAB Calcium Carbonate-Vitamin D (Calcium 600 + D) 1 Tab Tab 1 TAB PO BID Fish Oil ([place]-3) 1 Ea Cap 1 CAP PO QAM Glucosamine Sulfate (Glucosamine) 1,000 Mg Tab 1000 MG PO BID, TAB Montelukast Sodium (Singulair) 10 Mg Tab 10 MG PO DAILY, TAB Naproxen (Aleve) 220 Mg Tab 220 MG PO prn, TAB Polyethylene Glycol-Propylene (Systane Ultra) 1 Eva Eva 1 DROPS OPB BID, ML Psyllium W/ Calcium (Metamucil Plus Calcium) 1 Cap Cap 2 CAP PO HS Admission HPI Per the Admitting provider: 81 y/o male developed abdominal pain in the lower abdomen that began about 7 hours ago. It was mostly midline initially. He was having trouble passing his urine as well. He had a normal bm without blood or melena. He had a hernia repair on the right side in 1989. He has noted a recurrence for a long time but it was always reducible. He noted that the hernia is now protruding farther than it usually does and is harder. It is tender to palpation and that is usually not the case. He had nausea earlier and had one episode of vomiting. He has not had fever. He denies dysuria and hematuria. Catheter passed in ER with drainage of 275 cc. Admission Exam Per the Admitting provider: General Appearance: WD/WN Head: normocephalic Neck: supple, no adenopathy Respiratory/Chest: chest non-tender, lungs clear Cardiovascular: regular rate, rhythm Abdomen/GI: normal bowel sounds, soft, + pertinent finding (right inguinal hernia not reducible, firm) Genitourinary - Male: normal male genitalia Back: normal inspection, no CVA tenderness Extremities/Musculoskelatal: normal inspection Hospital Course (1) Recurrent inguinal hernia of right side with obstruction Patient was taken to operating room for open right inguinal herniorrhaphy with small bowel resection. Patient tolerated procedure well and was transferred to recovery room in stable condition and then to med/surg floor for post operative care. Post operative orders included clear liquids, IV pain medication, Oral pain medication, Zofran, and Walker catheter to gravity given urinary retention pre-op. POD # 0 patient was doing well, minimal pain and tolerated clear liquids. POD # 1 patient did well, diet was advanced to full liquids. Walker catheter was discontinued and voiding trial proved successful. Diet was further advanced to regular diet night of POD # 1. POD # 2 patient had some flatus but no bowel movement. Tolerated regular diet. POD # 2 patient had a few bowel movements, pain minimal, ambulating and urinating without difficulty, and tolerated regular diet. Patient was discharged on POD # 3 in stable condition. Overall, hospital course was uneventful. Discharge Instructions as given to patient Copies To Primary Care Provider: Jhonatan Jennings M.D..
== END 2016-12-12 19:15 | disposition home or self-care (01) | DRG 330 ==
LOC: C.EDB 20:59 → C.MSN 12-09 04:04
PROVIDERS: ADMIT Surgery; ATTEND Surgery
PROC: 0YQ50ZZ Repair Right Inguinal Region, Open Approach (ICD-10-PCS; principal; 2016-12-09 00:57)
PROC: 0DT80ZZ Resection of Small Intestine, Open Approach (ICD-10-PCS; principal; 2016-12-09 00:57)
DX: K40.31 Unilateral inguinal hernia, with obstruction, without gangrene, recurrent (principal); K55.9 Vascular disorder of intestine, unspecified; C61 Malignant neoplasm of prostate; Z87.891 Personal history of nicotine dependence; R91.1 Solitary pulmonary nodule; J92.9 Pleural plaque without asbestos

== ENCOUNTER → 2017-02-07 | Outpatient (CLI) | payer OTHER ==
[~2017-02-07] MED LIST changes: -ALFU10TA2 PO; +ALFU10TA30 PO; +CALC-20 PO; -CALCTAB5 PO; -ECRCR; -GLCSUNK; +GLUC10007 PO; +OXYC-57 PO; +POLY1SOL6 OPB; +PSYLCAP5 PO; -SYSTANE ULTRA EYE OPB; -metamucil PO
[2017-02-07 12:40] LABS: CHOLESTEROL/HDL RATIO 3.3; PROSTATE SPECIFIC ANTIGEN 8.11 ng/ml (0.000-4.000)
[2017-02-07 12:54] LABS: ESTIMATED AVERAGE GLUCOSE 97 mg/dl; HA1C FLAG Normal (Normal)
--- NOTE | 2017-02-16 12:01 | CODING QUERY MEDICAL NECESSITY ---
SUPPORTING DIAGNOSIS NEEDED A supporting diagnosis is required for the test/procedure performed on this patient in order for us to be reimbursed by the patient's insurance. Please provide a supporting diagnosis for the following test/procedure listed below next to the test name along with your signature. *If there is no additional diagnosis for this patient that would support the following test/procedure please document that below next to the test/procedure. Test(s)/Procedure(s) that require a supporting diagnosis: * PSA DIAGNOSIS: Provider Signature: Date: Thank you Sandhya Cuevas [facility] [employer] Once completed, please kindly fax back to [phone] For questions please call [phone]
== END | disposition home or self-care (01) ==
LOC: C.LABPVFM 10:27
PROVIDERS: ATTEND Urology
DX: R39.9 Unspecified symptoms and signs involving the genitourinary system (principal); R73.09 Other abnormal glucose; C61 Malignant neoplasm of prostate

== ENCOUNTER 2017-08-04 16:13 | Emergency (ER) | payer OTHER ==
[~2017-08-04] VITALS: Ht 180.3 cm; Wt 81.2 kg
[~2017-08-04 16:13] MED LIST changes: +ALFU10TA2 PO; -ALFU10TA30 PO; -OXYC-57 PO
[2017-08-04 16:19] VITALS: BP 147/73; PULSE 81; TEMP 36.3; O2SAT 95; Ht 180.3 cm; Wt 81.2 kg
--- NOTE | 2017-08-04 16:40 | EMERGENCY ROOM VISIT NOTE ---
ED Visit Note First contact with patient: 16:26 CHIEF COMPLAINT: Hand laceration HISTORY OF PRESENT ILLNESS: This 82-year-old male patient presents to the emergency department by private vehicle after cutting the palm of his left hand with a utility knife at approximately 3:45 PM. He states there was initially a lot of bleeding. The bleeding has stopped after applying direct pressure over the wound. Denies weakness or numbness of the hand or fingers. The patient rates the pain as stinging and to/10. The patient denies any other injuries. The patient's Tetanus shot is up to date. The patient does not take any blood thinners. REVIEW OF SYSTEMS: A 6 system review of systems was completed with positives and pertinent negatives listed in the HPI. ALLERGIES: Reviewed in chart. MEDICATIONS: Reviewed with the patient. PMH: Reviewed with the patient. SOCIAL HISTORY: Lives at home with his . Denies tobacco use, alcohol use, recreational drug use. PHYSICAL EXAM: Vital Signs: Reviewed Nurse's notes, vital signs stable. GENERAL : Alert, pleasant and cooperative, in no acute distress, well-developed, well- nourished. SKIN: There is a 3 cm long laceration on the palmar aspect of the left hand at the base of the thumb. The edges gape apart with traction. There is no foreign material in the wound and it looks clean. There is active bleeding. No deep structures such as tendons, bones, or significant blood vessels are seen in the base of the wound. Normal strength and movement of the fingers and wrist. Capillary refill less than 2 seconds. Normal sensation to light and sharp touch. EMERGENCY DEPARTMENT COURSE: I examined the patient. Verbal consent was obtained to perform the procedure. Using sterile technique the wound was cleansed with Betadine. The area was sterilely draped. 2 ml of 1% buffered lidocaine was used to anesthetize the laceration on the hand. Once the patient was anesthetized, the wound was copiously irrigated under pressure with sterile saline. The wound was explored and was as described above. The laceration was repaired using 6 simple interrupted 5-0 nylon sutures with the wound edges being well approximated. The patient tolerated the procedure well. Hemostasis was achieved. The area was cleaned with sterile saline and dressed with bacitracin ointment and bandage. The patient was discharged home in good condition. Problem List Medical Problems: (1) Prostate cancer Permanent Comment: Adenocarcinoma the prostate presenting PSA 1.0, clinical stage T2 [id number] Status post biopsies, Adkins grade 3+3, biopsy stage [id number] Status post seed implant for cesium 131 on 01/08/2008 received 8500 cGy Status post completion of radiation therapy with IMRT/IGRT completed 04/11/2008 received 4500 cGy Status: Resolved Current/Historical Medications Scheduled Alfuzosin Hcl (Uroxatral), 10 MG PO DAILY Calcium Carbonate-Vitamin D (Calcium 600 + D), 1 TAB PO BID Fish Oil ([place]-3), 1 CAP PO QAM Glucosamine Sulfate (Glucosamine), 1,000 MG PO BID Montelukast Sodium (Singulair), 10 MG PO DAILY Naproxen (Aleve), 220 MG PO prn Polyethylene Glycol-Propylene (Systane Ultra), 1 DROPS OPB BID Psyllium W/ Calcium (Metamucil Plus Calcium), 2 CAP PO HS Allergies Coded Allergies: Gluten Flour (Verified Allergy, Intermediate, rash, 12/08/16) Vital Signs Date Time Temp Pulse Resp B/P (MAP) Pulse Ox O2 Delivery O2 Flow Rate FiO2 08/04/17 16:19 36.3 81 18 147/73 95 Room Air Departure Information Impression Primary Impression: Laceration of left hand Dispostion Home / Self-Care Condition GOOD Referrals Pedro Abel M.D. (PCP) Patient Instructions ED Laceration Hand, My [facility] Additional Instructions Follow-up with your PCP, in urgent care, or return to the emergency department for suture removal in 8-10 days. Keep wound clean and dry. Do not allow any crusting or dried blood to accumulate on sutures. If this occurs, use a 1:1 solution of hydrogen peroxide/ water on a Q-tip to clean the wound. Use an antibiotic ointment for 3-4 days, then let wound dry. Keep the wound covered with a bandaid for protection. Do not submerge your hand under water until the sutures have been removed. Ice and elevate for swelling and pain. Ibuprofen 600 mg and Tylenol 1000 mg every 8 hours as needed for pain. As with any laceration, there may be temporary or permanent nerve damage to the area. Keep covered when in sun until sutures removed then SPF 50 or higher for one year. Vitamin E oil if desired two weeks after suture removal for reduction of scar. Please seek immediate medical attention for any signs of infection (increasing redness, swelling, pus drainage, streaking up the arm, fever/chills). Problem Qualifiers Primary Impression: Laceration of left hand Encounter type: initial encounter Foreign body presence: without foreign body Qualified Codes: S61.412A - Laceration without foreign body of left hand , initial encounter
[2017-08-04] MEDS ORDERED: LIDO/EPINEPHRINE/SOD BICARB 20 ML VIAL INFIL ONE (16:45)
--- NOTE | 2017-08-07 01:04 | EMERGENCY ROOM VISIT NOTE ---
ED Visit Note First contact with patient: 16:26 I reviewed the patient's past medical history, medications, and visit nursing notes. I discussed the case with the physician membership assistant, examined the patient, and agree with the findings and plan as documented in the physician assistants note.
== END 2017-08-04 17:34 | disposition home or self-care (01) ==
LOC: C.EDD 16:23
DX: S61.412A Laceration without foreign body of left hand, initial encounter (principal); W26.0XXA Contact with knife, initial encounter; Z85.46 Personal history of malignant neoplasm of prostate; Z92.3 Personal history of irradiation

== ENCOUNTER → 2017-08-21 | Outpatient (CLI) | payer OTHER | END | disposition home or self-care (01) | LOC: C.LABBFT 15:42 | PROVIDERS: ATTEND Urology | DX: C61 Malignant neoplasm of prostate (principal); R39.9 Unspecified symptoms and signs involving the genitourinary system; J01.90 Acute sinusitis, unspecified; R73.09 Other abnormal glucose; R93.8 Abnormal findings on diagnostic imaging of other specified body structures; J20.9 Acute bronchitis, unspecified ==

== ENCOUNTER 2018-01-29 21:28 | Inpatient (IN) | payer OTHER ==
[~2018-01-29] VITALS: Ht 180.3 cm; Wt 78.6 kg
[~2018-01-29 21:28] MED LIST changes: -DXM4 PO; -MULT1CAP53 PO
[2018-01-29] MEDS ORDERED: MULT1CAP53 PO (22:20)
[2018-01-29] MEDS ORDERED: ONDANSETRON INJ 2 MG/ML 2 ML VIAL IV PRN (23:00)
[2018-01-29] MEDS ORDERED: ACETAMINOPHEN 325 MG TAB PO PRN (23:00)
[2018-01-29] MEDS ORDERED: MAGNESIUM HYDROXIDE SUSP 30 ML UDC PO PRN (23:00)
--- NOTE | 2018-01-29 23:38 | History and Physical ---
History & Physical Date & Time of Service: Jan 29, 2018 at 23:23 Chief Complaint: Blood Work Is Off Doc Referred Primary Care Physician: Pedro Abel M.D. History of Present Illness The patient is an 82 year old male with a past medical history of Prostate Cancer, Chronic Sinusitis, Cataracts, and Hemorrhoids that presents after labwork performed during an annual physical revealed a significant thrombocytopenia. The patient was seen by Dr. Abel this morning and his CBC showed a platelet count of 0 so he was referred to the ED. The patient first noticed he was having increased bruising over his forearms 3-4 weeks ago. Last week he described a few bowel movements with clots that he associated with his hemorrhoids that has since resolved. He was evaluated by ophthalmology as a follow up for Cataract surgery and retinal bleeding was found, and the patient has an appointment with a retinal specialist this week. The patient also appreciates that he has been having lower extremity numbness and tingling that started 3-4 weeks ago as well. The patient does have a history of nose bleeds, but over the last month has been coughing up some blood he believes is related to further epistaxis. 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 Past Medical/Surgical History Medical Problems: (1) Incarcerated right inguinal hernia (2) Laceration of left hand (3) Prostate cancer (4) Recurrent inguinal hernia of right side with obstruction (5) Thrombocytopenia Surgical Problems: (1) S/P inguinal hernia repair Family History Heart disease Social History Smoking Status: Never Smoker Occupational Status: retired Allergies Coded Allergies: Gluten Flour (Verified Allergy, Intermediate, rash, 12/08/16) Home Medications Scheduled Alfuzosin Hcl (Uroxatral), 10 MG PO DAILY Calcium Carbonate-Vitamin D (Calcium 600 + D), 2 TAB PO QAM Fish Oil ([place]-3), 1 CAP PO QAM Montelukast Sodium (Singulair), 10 MG PO DAILY Multiple Vitamins W/ Minerals (Macular Health Formula), 4 CAP PO DAILY Polyethylene Glycol-Propylene (Systane Ultra), 1 DROPS OPB BID Psyllium W/ Calcium (Metamucil Plus Calcium), 2 CAP PO HS Scheduled PRN Naproxen (Aleve), 220 MG PO BID PRN for Pain Review of Systems Constitutional: No fever, No chills, No sweats, No weight loss, No fatigue Respiratory: No cough, No sputum, No wheezing, No shortness of breath, No dyspnea on exertion Cardiovascular: No chest pain, No palpitations Abdomen: No pain, No nausea, No diarrhea, No constipation, No GI bleeding Musculoskeletal: No joint pain, No swelling, No calf pain Neurologic: No numbness/tingling, No vertigo Endocrine: No fatigue, No excessive thirst Integumentary: No rash Physical Exam Vital Signs Date Time Temp Pulse Resp B/P (MAP) Pulse Ox O2 Delivery O2 Flow Rate FiO2 01/29/18 23:05 86 20 148/82 96 Room Air 01/29/18 21:35 36.7 89 18 145/68 99 Room Air General Appearance: WD/WN, no apparent distress Head: normocephalic, atraumatic Eyes: normal inspection, sclerae normal Neck: supple, no carotid bruits Respiratory/Chest: chest non-tender, lungs clear, normal breath sounds Cardiovascular: regular rate, rhythm, no edema, no gallop Abdomen/GI: normal bowel sounds, non tender, soft Extremities/Musculoskelatal: no calf tenderness, normal capillary refill Neurologic/Psych: alert, normal mood/affect, oriented x 3 Skin: + pertinent finding (Multiple ecchymoses over the arms bilaterally. Petechial skin changes over the lower extremities (patient states these are chronic)) Diagnostics Laboratory Results Results Past 24 Hours Test 01/29/18 22:57 01/29/18 23:13 01/29/18 23:18 Range/Units Impression Assessment and Plan The patient is an 82 year old male with a past medical history of Prostate Cancer, Chronic Sinusitis, Cataracts, and Hemorrhoids that presents after labwork performed during an annual physical revealed a significant thrombocytopenia Thrombocytopenia - Platelet count of 0 on CBC - Platelet transfusion in the ED - Peripheral Smear - Anti-platelet Ab - ESR - ANCA Screen - DIC Workup: Fibrinogen, Fibrin Degradation products - PT/INR - Heme/ Onc Consult Urinary Retention - Alfuzosin Allergies - Singulair DVT - SCD Code Status - Full Resuscitation Resuscitation Status VTE Prophylaxis Will order VTE Prophylaxis: Yes Resident Tracking Resident Involvement: Resident Care Provided Care Provided: Adult Hospital Medicine History Patient seen and examined, chart reviewed, case discussed with Dr. Mcdaniel and I agree with his assessment and plan as documented above. Briefly, patient is an 82yo male presenting with easy bruising, bleeding, petechial rash found with platelet count of 0 on outpatient labs. Patient denies fevers, but has had increase in chills and drenching night sweats 2-3 times/week. No additional complaints. No recent illness, travel, medication changes. On physical exam he is afebrile, HD stable Gen: NAD Skin: scattered ecchymoses on UE and LE, petechiae on bilateral LEs HEENT: MMM, no JVD, no LAD Heart: +S1/S2, regular, 3/6 RADHA at LSB with radiation across the precordium and to bilateral carotids Lungs: CTA Abd: +BS, soft, NT/ND, no masses, no organomegaly Ext: trace edema Labs reviewed: Plt=0, normochromic/normocytic anemia, LFTs WNL Assessment/Plan: admit to medical floor. monitor platelet count. transfuse in ER check coagulation studies, Lyme/Anaplasmosis, Plt antibody, ANCA, peripheral smear consultation with Hematology-Oncology - appreciate assistance with this case Remainder of plan as above
[2018-01-29 23:49] VITALS: BP 159/84; PULSE 85; TEMP 36.9; O2SAT 96
--- NOTE | 2018-01-29 23:53 | EMERGENCY ROOM VISIT NOTE ---
History Report prepared by Ronnie: Mitzi Adam Under the Supervision of: Dr. Pedro Pablo Arevalo M.D. First contact with patient: 21:53 Chief Complaint: REFERRED BY DOCTOR Stated Complaint: BLOOD WORK IS OFF DOC REFERRED History of Present Illness The patient is an 82 year old white male with a past medical history of Lyme and celiac disease who presents to the ED with a cc of an episode of low platelets beginning today. He was referred to the ED by Dr. Crabtree following blood work this morning showing a platelet count of 0. He reports recent increased hemorrhoid bleeding as well as gingival bleeding when brushing his teeth. The patient states he had a recent retinal bleed in his L eye, noticed during cataract surgery, and has a FU appointment in 3 days with a retinal specialist. He notes recent bruising increases in the past 2 months, as well as increased bruising. The patient denies current headache or numbness. He denies any blood thinner use, and denies any history of low platelets, blood disorders, or cancer. Source of History: patient Onset: today Position: other (blood work) Symptom Intensity: platelet count of 0 Quality: other (low platelet count) Associated Symptoms: + fatigue, No headache, No numbness Note: Associated symptom: increased fatigue, gingival bleeding, increased hemorrhoid bleeding. Review of Systems See HPI for pertinent positives and negatives. A total of ten systems were reviewed and were otherwise negative. Past Medical & Surgical Medical Problems: (1) Prostate cancer (2) Thrombocytopenia Surgical Problems: (1) S/P inguinal hernia repair Family History Heart disease Social History Smoking Status: Former Smoker Smokeless Tobacco Use: No Alcohol Use: occasionally (wine, daily), other Housing Status: lives with significant other Occupation Status: retired Current/Historical Medications Scheduled Alfuzosin Hcl (Uroxatral), 10 MG PO DAILY Calcium Carbonate-Vitamin D (Calcium 600 + D), 2 TAB PO QAM Fish Oil ([place]-3), 1 CAP PO QAM Montelukast Sodium (Singulair), 10 MG PO DAILY Multiple Vitamins W/ Minerals (Macular Health Formula), 4 CAP PO DAILY Polyethylene Glycol-Propylene (Systane Ultra), 1 DROPS OPB BID Psyllium W/ Calcium (Metamucil Plus Calcium), 2 CAP PO HS Scheduled PRN Naproxen (Aleve), 220 MG PO BID PRN for Pain Allergies Coded Allergies: Gluten Flour (Verified Allergy, Intermediate, rash, 12/08/16) Physical Exam Vital Signs Date Time Temp Pulse Resp B/P (MAP) Pulse Ox O2 Delivery O2 Flow Rate FiO2 01/29/18 23:05 86 20 148/82 96 Room Air 01/29/18 21:35 36.7 89 18 145/68 99 Room Air Physical Exam GENERAL: Awake, alert, well-appearing, NAD HENT: Normocephalic, atraumatic. EYES: Normal conjunctiva. Sclera non-icteric. PERRL. No anisocoria. NECK: Supple. No nuchal rigidity. FROM. RESPIRATORY: CTAB, no rhonchi, wheezing, crackles CARDIAC: RRR, systolic ejection murmur. ABDOMEN: Soft, NTND, BS+ MSK: No chest wall TTP, no LE edema NEURO: GCS 15, CN 2-12 intact, moves all 4s on command SKIN: Scattered ecchymosis to bilat UE, numerous pinpoint nonblanching petechiae to bilat LE. Medical Decision & Procedures Laboratory Results Laboratory results reviewed by me: White blood cell count 4.8, RBC 2.8, hematocrit 27.1, hemoglobin 9.1, MCV 94.4, platelet count 1000, Medications Administered Platelet transfusion ED Course 2213: The patient was evaluated in room B9. A complete history and physical exam was performed. 2228: Discussed the patient's case with Dr. Khan, [facility] hospitalist. The patient will be evaluated for further treatment and disposition. Medical Decision The patient is an 82 year old white male with a past medical history of Lyme and celiac disease who presents to the ED with a cc of an episode of low platelets beginning today. Etiologies such as coagulopathy, cancer, ITP, TTP, infection, among other entertained. Patient seen and evaluated at bedside. Presented after referal to ER 2/2 to abnormal labs. Reviewed labs, noted platelet count of zero. Patient noted worsening hemorrhoidal bleeding, which has since resolved. Patient w/ scattered b/l UE ecchymosis. Appears to have petechiae b/l LEs but states these have been present for some time. Denies WELCH and no acute neuro symptoms. T/S ordered and platelets ordered given concern for spontaneous bleeding. I did speak w/ community organization worker hospitalist and patient admitted. Patient consented for platelets and given in EC. Medication Reconcilliation Current Medication List: was personally reviewed by me Blood Pressure Screening Patient's blood pressure: Elevated blood pressure Blood pressure disposition: Referred to PCP (referred to hospitalist) Consults Time Called: 2222 Consulting Physician: Dr. Khan [facility] hospitalist Returned Call: [phone] Discussed the patient's case with Dr. Khan [facility] hospitalist. The patient will be evaluated for further treatment and disposition. Impression Primary Impression: Thrombocytopenia Additional Impression: Anemia Critical Care I have personally spent greater than 35 minutes of critical care time in the direct management of this patient. This includes bedside care, interpretation of diagnostic studies, and testing, discussion with consultants, patient, and family members, and other required patient management activities. This 35 minutes is in excess of all separately billable procedures. Scribe Attestation The scribe's documentation has been prepared under my direction and personally reviewed by me in its entirety. I confirm that the note above accurately reflects all work, treatment, procedures, and medical decision making performed by me. Departure Information Dispostion Being Evaluated By Hospitalist Referrals Pedro Abel M.D. (PCP) Patient Instructions My [facility] Problem Qualifiers Additional Impression: Anemia Anemia type: unspecified type Qualified Codes: D64.9 - Anemia, unspecified
[2018-01-30] VITALS (10 sets, daily range): BP systolic 115–160; BP diastolic 67–86; PULSE 50–91; TEMP 36.3–36.9; O2SAT 95–99; Ht 180.3 cm; Wt 78.6 kg
[2018-01-30 00:26] LABS: BASO % 0.4 %; BASO ABS # 0.02 K/uL (0-0.2); EOS % 4.1 %; HEMATOCRIT 27.1 % (42-52); HEMOGLOBIN 9.1 g/dL (14.0-18.0); IG# 0.01 K/uL (0.00-0.02); LYMPH ABS # 1.32 K/uL (1.2-3.4); MEAN CELL VOLUME 94.4 fL (80-100); MEAN CORPUSCULAR HEMOGLOBIN 31.7 pg (25-34); MEAN CORPUSCULAR HGB CONC 33.6 g/dl (32-36); MONO % 8.8 %; MONO ABS # 0.43 K/uL (0.11-0.59); NEUT % 59.5 %; PLATELET COUNT 1 K/uL (130-400); RED CELL DISTRIBUTION WIDTH CV 14.1 % (11.5-14.5); RED CELL DISTRIBUTION WIDTH SD 48.6 fL (36.4-46.3); WHITE BLOOD COUNT 4.88 K/uL (4.8-10.8)
--- NOTE | 2018-01-30 06:46 | Family Medicine Progress Note ---
Progress Note Date of Service Jan 30, 2018. Subjective Pt evaluation today including: conversation w/ patient, conversation w/ family , physical exam, chart review, lab review, review of studies Pain: Denies pain PO Intake: Good Mr. Levi Brown is an 82 year old male with a PMHx of prostate cancer, Lyme disease, cataracts, hemorrhoids, and sinusitis who presented to the ED at recommendation of his PCP Dr. Abel after his most recent outpatient CBC showed a platelet count of 0. He reports that he has had easy bruising of his arms for 3-4 weeks. He had a bowel movement with blood and clots last week. He last had a bowel movement last night in which there was no blood or clots. He notes he was recently seen by for a followup of his cataract surgery in September and a L retinal hemmorhage was noted on his physical exam. He endorses some a history of nosebleeds which have stopped on their own. He reports he has had some nosebleeds over the past month which he notes have caused him to cough up some blood from the back of his throat. He previously had used flonase for nasal congestion which was stopped last and replaced with singulair daily which works well for his congestion/allergies. He also has been having bilateral lower extremity numbness/tingling for 3-4 weeks He has a history of gluten sensitivity. 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 He maintains a celiac diet and has had no recent gluten exposure to his knowledge. He uses Alieve 2x tablets (he thinks 240mg each) as needed for pain. This past week he has been using 3x tablets per day for plantar fascitis pain. No other recent medication changes. Today he feels OK. Reports no bleeding overnight. No nosebleeds, last BM last night and which was without blood or melena. He reports the bruising on his arms is improved from yesterday. No new areas of bruising or petechiae. He reports his vision is good, denies recent change in acuity or diplopia. No problems voiding although he notes increased urinary frequency. Reports he slept OK overnight. He has various questions related to what can cause platelet count to be low and what the plan is. Constitutional: + fatigue, No fever, No chills, No sweats, No weakness Eyes: No worsening of vision, No eye pain, No diplopia ENT: No unusual epistaxis Respiratory: No cough, No sputum, No wheezing, No shortness of breath, No dyspnea on exertion Cardiovascular: No chest pain, No edema, No palpitations Abdomen: + problem reported (Denies GI bleeding in the last 24 hours. Endorses bloody bowel movement with clot last week.), No pain, No nausea, No vomiting, No diarrhea, No constipation Musculoskeletal: No joint pain, No muscle pain, No swelling Male : + urinary frequency, + nocturia more than once/night, No dysuria, No incontinence Neurologic: + numbness/tingling, No weakness Heme: + abnormal bleeding/bruising Skin: + rash, + problem reported (Notes several months of fine, red rash on his ankles/feet bilaterally. Easy bruising on his arms bilaterally for 2-3 weeks.) Medications Current Inpatient Medications Medications (Trade) Dose Ordered Sig/Giovanny Route Start Time Stop Time Status Last Admin Dose Admin Acetaminophen (Tylenol Tab) 650 mg Q4H PRN PO 01/29/18 23:00 02/28/18 22:59 Magnesium Hydroxide (Milk Of Magnesia Susp) 30 ml Q6H PRN PO 01/29/18 23:00 02/28/18 22:59 Ondansetron HCl (Zofran Inj) 4 mg Q6H PRN IV 01/29/18 23:00 02/28/18 22:59 Alfuzosin HCl (Uroxatral Tab) 10 mg DAILY PO 01/30/18 08:00 03/01/18 08:59 01/30/18 08:02 10 MG Montelukast Sodium (Singulair Tab) 10 mg DAILY PO 01/30/18 08:00 03/01/18 08:59 01/30/18 08:02 10 MG Dexamethasone (Decadron Tab) 40 mg DAILY PO 01/30/18 09:00 02/02/18 08:01 01/30/18 09:56 40 MG Objective Vital Signs Date Time Temp Pulse Resp B/P (MAP) Pulse Ox O2 Delivery O2 Flow Rate FiO2 01/30/18 11:20 36.5 66 18 128/73 (91) 96 Room Air 01/30/18 08:51 Room Air 01/30/18 07:46 36.5 50 18 123/68 (86) 97 Room Air 01/30/18 02:06 36.8 82 18 153/77 98 01/30/18 01:48 36.4 85 18 160/81 95 Room Air 01/30/18 00:48 36.9 82 22 132/72 95 01/30/18 00:46 36.9 82 22 132/72 95 01/30/18 00:14 36.8 80 22 140/86 99 01/30/18 00:01 36.7 75 20 134/77 97 01/29/18 23:49 36.9 85 22 159/84 96 01/29/18 23:05 86 20 148/82 96 Room Air 01/29/18 21:35 36.7 89 18 145/68 99 Room Air Physical Exam General Appearance: WD/WN, no apparent distress Eyes: normal inspection, PERRL, EOMI, sclerae normal ENT: hearing grossly normal, pharynx normal, + pertinent finding (Small amounts of blood and a scab with ulceration on L nasal septum, no septal perforation. No blood observed in posterior pharynx.) Neck: supple, no adenopathy, no carotid bruits, trachea midline Respiratory/Chest: chest non-tender, lungs clear, normal breath sounds, no respiratory distress, no accessory muscle use Cardiovascular: no edema, no gallop, no JVD, + systolic murmur Abdomen: normal bowel sounds, non tender, soft, no organomegaly (splenomegaly not appreciated) Extremities: non-tender, + pertinent finding (See skin notes) Skin: warm/dry, + pertinent finding (petechiae present on ankles/foot bilaterally. Hematomas present on medial and lateral forearms bilaterally, and on R lateral upper arm. Hematoma present above R clavicle. No acute bleeding observed.) Lymphatic: no adenopathy Laboratory Results 01/30/18 07:56 Red Blood Count 2.99, Mean Corpuscular Volume 94.0, Mean Corpuscular Hemoglobin 31.4, Mean Corpuscular Hemoglobin Concent 33.5, Neutrophils (%) (Auto) 67.1, Lymphocytes (%) (Auto) 16.8, Monocytes (%) (Auto) 11.0, Eosinophils (%) (Auto) 4.5, Basophils (%) (Auto) 0.4, Neutrophils # (Auto) 3.31, Lymphocytes # (Auto) 0.83, Monocytes # (Auto) 0.54, Eosinophils # (Auto) 0.22, Basophils # (Auto) 0.02 01/30/18 07:57 Test 01/29/18 23:28 01/30/18 07:56 01/30/18 07:57 Red Blood Cell Morphology Unremarkable Peripheral Blood Smear Path Consult Erythrocyte Sedimentation Rate 3 mm/hr (0-14) Prothrombin Time 11.0 SECONDS (9.0-12.0) Prothromb Time International Ratio 1.0 (0.9-1.1) Fibrinogen 242 mg/dl (184-400) Fibrin Degradation Products <10 mcg/ml (<10) Lyme Disease IgG Antibody POS (NEG) White Blood Count 4.93 K/uL (4.8-10.8) Red Blood Count 2.99 M/uL (4.7-6.1) Hemoglobin 9.4 g/dL (14.0-18.0) Hematocrit 28.1 % (42-52) Mean Corpuscular Volume 94.0 fL (80-100) Mean Corpuscular Hemoglobin 31.4 pg (25-34) Mean Corpuscular Hemoglobin Concent 33.5 g/dl (32-36) Platelet Count 1 K/uL (130-400) Neutrophils (%) (Auto) 67.1 % Lymphocytes (%) (Auto) 16.8 % Monocytes (%) (Auto) 11.0 % Eosinophils (%) (Auto) 4.5 % Basophils (%) (Auto) 0.4 % Neutrophils # (Auto) 3.31 K/uL (1.4-6.5) Lymphocytes # (Auto) 0.83 K/uL (1.2-3.4) Monocytes # (Auto) 0.54 K/uL (0.11-0.59) Eosinophils # (Auto) 0.22 K/uL (0-0.5) Basophils # (Auto) 0.02 K/uL (0-0.2) RDW Standard Deviation 48.4 fL (36.4-46.3) RDW Coefficient of Variation 14.1 % (11.5-14.5) Immature Granulocyte % (Auto) 0.2 % Immature Granulocyte # (Auto) 0.01 K/uL (0.00-0.02) Platelet Estimate SIGNIFIC DECREASED Anion Gap 6.0 mmol/L (3-11) Est Creatinine Clear Calc Drug Dose 64.2 ml/min Estimated GFR () 85.6 Estimated GFR (Non- 73.8 BUN/Creatinine Ratio 21.6 (10-20) Calcium Level 8.6 mg/dl (8.5-10.1) Iron Level 63 mcg/dl (35-175) Total Iron Binding Capacity 309 mcg/dl (250-450) Transferrin 238 mg/dl (200-360) Transferrin % Saturation 19 % (20-50) Ferritin 82.3 ng/ml (8.0-388.0) Total Bilirubin 0.4 mg/dl (0.2-1) Aspartate Amino Transf (AST/SGOT) 21 U/L (15-37) Alanine Aminotransferase (ALT/SGPT) 21 U/L (12-78) Alkaline Phosphatase 45 U/L (45-117) Total Protein 6.6 gm/dl (6.4-8.2) Albumin 3.4 gm/dl (3.4-5.0) Globulin 3.2 gm/dl (2.5-4.0) Albumin/Globulin Ratio 1.1 (0.9-2) Prostate Specific Antigen 0.234 ng/ml (0.000-4.000) Assessment and Plan Mr. Levi Brown is a 82yo M with a PMHx of cataract surgery, hemorrhoids, and chronic sinusitis admitted for severe thrombocytopenia (plt = 0) and 2-3 weeks of easy bruising with one episode of blood/clots in his bowel movement. Thrombocytopenia with high suspicion for ITP - Only medication recent medication change is a recent increase in Alieve dosing from 2 to 3 tablets per pt - No hx of thrombocytopenia, personal or family. 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 Appreciate recs. - + Iron Studies, + CMP - Other causes of thrombocytopenia are unlikely, low suspicion for myelodysplasia and aplastic anemia given OK leukocyte and erythrocyte counts. Normal coags and Fibinogen/FibDegradation r/o DIC. Heme to review peripheral smear for evidence of microangiopathy, but feel it is also unlikely. Urinary Retention - Continue TROUT FARMER Alfuzosin Allergies - Continue TROUT FARMER singulair DVT - SCDs Diet: Gluten-Free Code Status: Full Resident Physician Supervision Note: I was present with the resident physician during the history and exam. I discussed the case with the resident and agree with the findings and plan as documented in the note. Any exceptions or clarifications are listed here: Patient is seen with the resident; the patient's is also at bedside. The patient is without complaints. All questions regarding his diagnosis, treatment , and expected course were reviewed with the patient. We will continue Decadron and monitor platelet count. Documented By: Orlando Resendiz Continued [facility] stay due to: other (High risk of bleeding with plt count of 1.) Discharge planning: uncertain Resident Tracking Resident Involvement: Resident Care Provided Care Provided: Adult Hospital Medicine
[2018-01-30] MEDS: MONTELUKAST SOD 10 MG TAB PO SCH (08:02)
[2018-01-30] MEDS: ALFUZosin TAB 10 MG TAB PO SCH (08:02)
[2018-01-30 08:26] LABS: HEMATOCRIT 28.1 % (42-52); HEMOGLOBIN 9.4 g/dL (14.0-18.0); MEAN CORPUSCULAR HEMOGLOBIN 31.4 pg (25-34); RED CELL DISTRIBUTION WIDTH CV 14.1 % (11.5-14.5); RED CELL DISTRIBUTION WIDTH SD 48.4 fL (36.4-46.3); WHITE BLOOD COUNT 4.93 K/uL (4.8-10.8)
[2018-01-30 08:36] LABS: BASO % 0.4 %; BASO ABS # 0.02 K/uL (0-0.2); EOS % 4.5 %; EOS ABS # 0.22 K/uL (0-0.5); IG# 0.01 K/uL (0.00-0.02); LYMPH % 16.8 %; LYMPH ABS # 0.83 K/uL (1.2-3.4); MEAN CORPUSCULAR HGB CONC 33.5 g/dl (32-36); MONO ABS # 0.54 K/uL (0.11-0.59); NEUT % 67.1 %; NEUT ABS # 3.31 K/uL (1.4-6.5); PLATELET COUNT 1 K/uL (130-400)
--- NOTE | 2018-01-30 09:09 | Oncology Consultation ---
Oncology/Heme Consultation Date of Consultation: Jan 30, 2018. Attending Physician: Temitope Khan D.O. Reason for Consultation: Thrombocytopenia History of Present Illness Mr. Brown is an 82 year old man with a history of allergies and prostate cancer that was treated about 10 years ago with EBRT and brachytherapy. He is biochemically recurrent and is receiving intermittent Lupron, with his last dose given about 6 months ago. He had routine blood work yesterday that revealed an undetectable platelet count. He has noticed some increased bruising over the last few weeks, though not enough that it was alarming. He also had some grossly bloody bowel movements in the last few days, including passing large clots. He denies starting any new medications, herbal supplements, or other naturopathic therapies, though he was taking Aleve for some plantar fasciitis last week. He does not drink alcohol. He denies any fevers, weight loss, excess fatigue, or palpable adenopathy. He has not had any recent infections. Past Medical/Surgical History Medical Problems: (1) Incarcerated right inguinal hernia Status: Acute (2) Laceration of left hand Status: Acute Family History Heart disease Social History Smoking Status: Former Smoker Smokeless Tobacco Use: No Housing Status: lives with significant other Occupation Status: retired Allergies Coded Allergies: Gluten Flour (Verified Allergy, Intermediate, rash, 12/08/16) Home Medications Scheduled Alfuzosin Hcl (Uroxatral), 10 MG PO DAILY Calcium Carbonate-Vitamin D (Calcium 600 + D), 2 TAB PO QAM Fish Oil ([place]-3), 1 CAP PO QAM Montelukast Sodium (Singulair), 10 MG PO DAILY Multiple Vitamins W/ Minerals (Macular Health Formula), 4 CAP PO DAILY Polyethylene Glycol-Propylene (Systane Ultra), 1 DROPS OPB BID Psyllium W/ Calcium (Metamucil Plus Calcium), 2 CAP PO HS Scheduled PRN Naproxen (Aleve), 220 MG PO BID PRN for Pain Current Inpatient Medications Current Inpatient Medications Medications (Trade) Dose Ordered Sig/Giovanny Route Start Time Stop Time Status Last Admin Dose Admin Acetaminophen (Tylenol Tab) 650 mg Q4H PRN PO 01/29/18 23:00 02/28/18 22:59 Magnesium Hydroxide (Milk Of Magnesia Susp) 30 ml Q6H PRN PO 01/29/18 23:00 02/28/18 22:59 Ondansetron HCl (Zofran Inj) 4 mg Q6H PRN IV 01/29/18 23:00 02/28/18 22:59 Alfuzosin HCl (Uroxatral Tab) 10 mg DAILY PO 01/30/18 08:00 03/01/18 08:59 01/30/18 08:02 10 MG Montelukast Sodium (Singulair Tab) 10 mg DAILY PO 01/30/18 08:00 03/01/18 08:59 01/30/18 08:02 10 MG Review of Systems Constitutional: No fever, No weakness, No fatigue ENT: No unusual epistaxis Respiratory: No cough, No hemoptysis Cardiovascular: No chest pain Abdomen: + GI bleeding, No pain Musculoskeletal: No joint pain, No muscle pain Genitourinary - Male: No hematuria Hematologic / Lymphatic: No abnormal bleeding/bruising Integumentary: + bleeding (bruising on his arms), No rash Physical Exam Date Time Temp Pulse Resp B/P (MAP) Pulse Ox O2 Delivery O2 Flow Rate FiO2 01/30/18 08:51 Room Air 01/30/18 07:46 36.5 50 18 123/68 (86) 97 Room Air 01/30/18 02:06 36.8 82 18 153/77 98 01/30/18 01:48 36.4 85 18 160/81 95 Room Air 01/30/18 00:48 36.9 82 22 132/72 95 01/30/18 00:46 36.9 82 22 132/72 95 01/30/18 00:14 36.8 80 22 140/86 99 01/30/18 00:01 36.7 75 20 134/77 97 01/29/18 23:49 36.9 85 22 159/84 96 01/29/18 23:05 86 20 148/82 96 Room Air 01/29/18 21:35 36.7 89 18 145/68 99 Room Air General Appearance: WD/WN, no apparent distress ENT: pharynx normal Respiratory/Chest: lungs clear Cardiovascular: regular rate, rhythm Abdomen/GI: non tender, soft Extremities/Musculoskelatal: no pedal edema Neurologic/Psych: alert, oriented x 3 Skin: + pertinent finding (large ecchymoses on his forearms bilaterally) Laboratory Results Last 24 Hours Test 01/29/18 23:28 01/30/18 07:56 White Blood Count 4.88 K/uL 4.93 K/uL Red Blood Count 2.87 M/uL 2.99 M/uL Hemoglobin 9.1 g/dL 9.4 g/dL Hematocrit 27.1 % 28.1 % Mean Corpuscular Volume 94.4 fL 94.0 fL Mean Corpuscular Hemoglobin 31.7 pg 31.4 pg Mean Corpuscular Hemoglobin Concent 33.6 g/dl 33.5 g/dl Platelet Count 1 K/uL 1 K/uL Neutrophils (%) (Auto) 59.5 % 67.1 % Lymphocytes (%) (Auto) 27.0 % 16.8 % Monocytes (%) (Auto) 8.8 % 11.0 % Eosinophils (%) (Auto) 4.1 % 4.5 % Basophils (%) (Auto) 0.4 % 0.4 % Neutrophils # (Auto) 2.90 K/uL 3.31 K/uL Lymphocytes # (Auto) 1.32 K/uL 0.83 K/uL Monocytes # (Auto) 0.43 K/uL 0.54 K/uL Eosinophils # (Auto) 0.20 K/uL 0.22 K/uL Basophils # (Auto) 0.02 K/uL 0.02 K/uL RDW Standard Deviation 48.6 fL 48.4 fL RDW Coefficient of Variation 14.1 % 14.1 % Immature Granulocyte % (Auto) 0.2 % 0.2 % Immature Granulocyte # (Auto) 0.01 K/uL 0.01 K/uL Platelet Estimate SIGNIFIC DECREASED SIGNIFIC DECREASED Red Blood Cell Morphology Unremarkable Erythrocyte Sedimentation Rate 3 mm/hr Prothrombin Time 11.0 SECONDS Prothromb Time International Ratio 1.0 Fibrinogen 242 mg/dl Fibrin Degradation Products <10 mcg/ml Lyme Disease IgG Antibody POS Lyme Disease IgM Antibody NEG Assessment & Plan Mr. Brown has severe thrombocytopenia. 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 ITP is a clinical diagnosis made in patients with largely isolated, profound thrombocytopenia. It is a diagnosis of exclusion, as there is no specific test for ITP (Anti-platelet antibodies are a poor test for ITP, as up to 40-50% of patients with ITP will be negative for anti-platelet Abs). The diagnosis is usually made empirically by treating patients. When they respond, this confirms the diagnosis. The treatment of choice is high-dose corticosteroids. I would give him 40 mg PO dexamethasone daily for 4 days, with no taper. This is effective in the large majority of patients with ITP. I would not give him any further platelet transfusions, as they are almost uniformly ineffective in ITP patients (as evidenced by his utter lack of response to transfusion). With regard to his anemia, I suspect this is attributable at least in part to blood loss. We do not have a lot of prior levels to compare with, but he does appear to have been low previously, possibly pointing to a more chronic diagnosis. I would order iron studies to start, along with a CMP. I very strongly doubt he has a microangiopathy, though I will review a smear to confirm this, and his normal coags rule out DIC.
[2018-01-30 09:56] LABS: ALBUMIN 3.4 gm/dl (3.4-5.0); CALCIUM 8.6 mg/dl (8.5-10.1); CREATININE 0.96 mg/dl (0.60-1.40); POTASSIUM 4.1 mmol/L (3.5-5.1); TOTAL PROTEIN 6.6 gm/dl (6.4-8.2)
[2018-01-30] MEDS: DEXAMETHASONE 4 MG TAB PO SCH (09:56)
[2018-01-30] MEDS ORDERED: SODIUM CHLORIDE 0.65% NA SOLN 45 ML (OCEAN) PRN (20:15)
[2018-01-31 04:38] VITALS: BP 113/61; PULSE 91; TEMP 36.3; O2SAT 97
--- NOTE | 2018-01-31 06:43 | Family Medicine Progress Note ---
Progress Note Date of Service Jan 31, 2018. Subjective Pt evaluation today including: conversation w/ patient, physical exam, chart review, lab review, review of studies Pain: None (0/10) PO Intake: Good, normal diet. Voiding: no voiding problems, no incontinence Mr. Levi Brown is an 82 year old male with a PMHx of prostate cancer, Lyme disease, cataracts, hemorrhoids, and sinusitis who presented to the ED at recommendation of his PCP Dr. Abel after his most recent outpatient CBC showed a platelet count of 0. He is currently on treatment day #1 of 4 with dexamethasone PO. He reports he feels well today. He has been up walking around and does not feel week. He had a bowel movement last night and this morning which was without blood or melena. No diarrhea/constipation. He denies abdominal pain. He has a good appetite today without nausea or vomiting. He feels the bruises on his arms and chest are healing well. He notes no new areas of bruising and denies any active bleeding. Notes no new nosebleeds, but has chronic scabbing on the inside of his L nasal septum which he is trying to keep moist with saline mist. He has not had any nosebleeds or coughed up any blood. Denies chest pain, chest pressure, shortness of breath, or new rash. He feels he is in otherwise good health, and had noticed so side effects of the steroids. He slept OK last night for ~5 hours, but notes it is hard to sleep with the hospital noise, vital checks, and inside sales blood draws. His is bringing some of his home vitamins in today including Calcium+VitaminD and occuvite. No questions/ concerns at this time. Constitutional: No fever, No chills, No weakness, No fatigue Eyes: No worsening of vision ENT: No unusual epistaxis, No nasal symptoms, No sore throat Respiratory: No cough, No sputum, No wheezing, No shortness of breath, No dyspnea at rest, No hemoptysis Cardiovascular: No chest pain, No edema, No palpitations Abdomen: No pain, No nausea, No vomiting, No diarrhea, No constipation, No GI bleeding Musculoskeletal: No joint pain, No muscle pain, No swelling Male : + nocturia more than once/night (up twice last night to urinate), No dysuria, No incontinence Endo: No fatigue Skin: No rash Medications Current Inpatient Medications Medications (Trade) Dose Ordered Sig/Giovanny Route Start Time Stop Time Status Last Admin Dose Admin Acetaminophen (Tylenol Tab) 650 mg Q4H PRN PO 01/29/18 23:00 02/28/18 22:59 Magnesium Hydroxide (Milk Of Magnesia Susp) 30 ml Q6H PRN PO 01/29/18 23:00 02/28/18 22:59 Ondansetron HCl (Zofran Inj) 4 mg Q6H PRN IV 01/29/18 23:00 02/28/18 22:59 Alfuzosin HCl (Uroxatral Tab) 10 mg DAILY PO 01/30/18 08:00 03/01/18 08:59 01/31/18 08:00 10 MG Montelukast Sodium (Singulair Tab) 10 mg DAILY PO 01/30/18 08:00 03/01/18 08:59 01/31/18 08:00 10 MG Dexamethasone (Decadron Tab) 40 mg DAILY PO 01/30/18 09:00 02/02/18 08:01 01/31/18 08:00 40 MG Sodium Chloride ([place] Nasal Newman) 1 sprays PRN PRN NA 01/30/18 20:15 03/01/18 20:14 Objective Vital Signs Date Time Temp Pulse Resp B/P (MAP) Pulse Ox O2 Delivery O2 Flow Rate FiO2 01/31/18 11:27 36.6 88 18 132/85 (101) 97 Room Air 01/31/18 09:46 Room Air 01/31/18 07:29 36.6 92 18 124/80 (95) 98 Room Air 01/31/18 04:38 36.3 91 19 113/61 (78) 97 Room Air 01/30/18 22:56 36.4 80 18 115/67 (83) 95 Room Air 01/30/18 21:24 Room Air 01/30/18 19:23 36.3 91 16 123/73 (90) 96 Room Air 01/30/18 16:12 Room Air 01/30/18 16:03 36.4 84 18 133/78 (96) 96 Room Air Physical Exam General Appearance: WD/WN, no apparent distress Eyes: normal inspection, PERRL, EOMI, sclerae normal, + pertinent finding ENT: hearing grossly normal, pharynx normal Neck: supple, no adenopathy, trachea midline Respiratory/Chest: chest non-tender, lungs clear, normal breath sounds, no respiratory distress, no accessory muscle use Cardiovascular: + pertinent finding (Regular rate. Systolic murmer present. ) Abdomen: normal bowel sounds, non tender, soft Extremities: non-tender, + pertinent finding (ecchymoses improved from yesterday on both forearms, well healing. Petechiae present on the ankles bilaterally.) Neurologic/Psychiatric: alert, normal mood/affect, oriented x 3 Skin: normal color, warm/dry, + pertinent finding (See extremity description) Laboratory Results 01/31/18 07:57 Red Blood Count 3.00, Mean Corpuscular Volume 93.3, Mean Corpuscular Hemoglobin 32.0, Mean Corpuscular Hemoglobin Concent 34.3, Neutrophils (%) (Auto) 86.1, Lymphocytes (%) (Auto) 6.8, Monocytes (%) (Auto) 6.5, Eosinophils (%) (Auto) 0.0 , Basophils (%) (Auto) 0.0, Neutrophils # (Auto) 9.43, Lymphocytes # (Auto) 0.75 , Monocytes # (Auto) 0.71, Eosinophils # (Auto) 0.00, Basophils # (Auto) 0.00 Test 01/31/18 07:57 White Blood Count 10.96 K/uL (4.8-10.8) Red Blood Count 3.00 M/uL (4.7-6.1) Hemoglobin 9.6 g/dL (14.0-18.0) Hematocrit 28.0 % (42-52) Mean Corpuscular Volume 93.3 fL (80-100) Mean Corpuscular Hemoglobin 32.0 pg (25-34) Mean Corpuscular Hemoglobin Concent 34.3 g/dl (32-36) Platelet Count 6 K/uL (130-400) Neutrophils (%) (Auto) 86.1 % Lymphocytes (%) (Auto) 6.8 % Monocytes (%) (Auto) 6.5 % Eosinophils (%) (Auto) 0.0 % Basophils (%) (Auto) 0.0 % Neutrophils # (Auto) 9.43 K/uL (1.4-6.5) Lymphocytes # (Auto) 0.75 K/uL (1.2-3.4) Monocytes # (Auto) 0.71 K/uL (0.11-0.59) Eosinophils # (Auto) 0.00 K/uL (0-0.5) Basophils # (Auto) 0.00 K/uL (0-0.2) RDW Standard Deviation 47.5 fL (36.4-46.3) RDW Coefficient of Variation 14.0 % (11.5-14.5) Immature Granulocyte % (Auto) 0.6 % Immature Granulocyte # (Auto) 0.07 K/uL (0.00-0.02) Platelet Estimate SIGNIFIC DECREASED Red Blood Cell Morphology Unremarkable Assessment and Plan Mr. Levi Brown is a 82yo M with a PMHx of cataract surgery, hemorrhoids, and chronic sinusitis admitted for severe thrombocytopenia (plt = 0) and 2-3 weeks of easy bruising with one episode of blood/clots in his bowel movement. Thrombocytopenia with high suspicion for ITP - No hx of thrombocytopenia, personal or family. No recent heparin exposure. - Iron studies do not suggest iron deficiency - Dexamethasone 40mg PO daily x4 days total. Hopefully will see a rise in platelets in the next 24-48 hours. - Other causes of thrombocytopenia are unlikely, low suspicion for myelodysplasia and aplastic anemia given OK leukocyte and erythrocyte counts. Normal coags and Fibinogen/FibDegradation r/o DIC. Heme to review peripheral smear for evidence of microangiopathy, but feel it is also unlikely. - CBC+Diff daily Anemia - Hgb was ~12 two years ago, he is currently 9.1 - With normal iron studies likely reflects blood loss anemia - Transfuse if hgb drops to <7.0 - He is not currently symptomatic. If he develops symptomatic anemia transfuse to a goal of >8.0. Urinary Retention - Continue DESIGN TRANSFERRER Alfuzosin Allergies - Continue DESIGN TRANSFERRER Singulair DVT - SCDs Diet: Gluten-Free Code Status: Full Code Resident Physician Supervision Note: I interviewed and examined the patient. Discussed with the resident physician and agree with findings and plan as documented in the note. Any exceptions or clarifications are listed here: I visited with the patient early this morning. He had no complaints. He was happy to learn that his platelet count had improved from 1-6000. The improvement in his platelet count subsequent to Decadron supports the diagnosis of ITP. I would like to see 2 successive days of improvement before I felt comfortable with discharge. We will check platelet count again in the a.m. and will discuss with hematology regarding plan going forward. Documented By: Orlando Resendiz Continued [facility] stay due to: home environment unsafe for pt, other (High risk of bleeds due to plt count <1) Resident Tracking Resident Involvement: Resident Care Provided Care Provided: Adult Hospital Medicine
[2018-01-31 07:29] VITALS: BP 124/80; PULSE 92; TEMP 36.6; O2SAT 98
--- NOTE | 2018-01-31 07:41 | Clinical Documentation Query ---
CLINICAL DOCUMENTATION QUERY Dr. NASH, In your clinical opinion is this patient being managed for: ( ) Acute blood loss anemia ( ) Not Agree ( ) Other explanation of clinical findings (No explanation is considered a No Response) ( ) Unable to determine ( ) Need to Discuss (Phone CDS or qliq) (No discussion is considered a No Response) The medical record reflects the following clinical findings, treatment, and risk factors. 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 Reported increased hemorrhoidal and gingival bleeding as well as a recent retinal bleed. Hgb 9.1, Hct 27.1. Hem/onc consult indicates "anemia, I suspect this is attributable at least in part to blood loss." Treatment: monitor CBC, coagulation studies, hem/onc consult, ITP treatment (decadron) Risk Factors: ITP causing bleeding Please clarify and document your clinical opinion in the progress notes and discharge summary. Terms such as "probable", "suspected", "likely", "questionable", "possible", or "still to be ruled out" are acceptable. IF IN AGREEMENT, YOU MUST DOCUMENT ABOVE DIAGNOSTIC STATEMENT IN DAILY PROGRESS NOTES AND DISCHARGE SUMMARY. This document is not part of the patient's record. Thank You, Nabila Guerin, ROMINA [phone]
[2018-01-31] MEDS: ALFUZosin TAB 10 MG TAB PO SCH (08:00)
[2018-01-31] MEDS: MONTELUKAST SOD 10 MG TAB PO SCH (08:00)
[2018-01-31] MEDS: DEXAMETHASONE 4 MG TAB PO SCH (08:00)
[2018-01-31 09:12] LABS: HEMOGLOBIN 9.6 g/dL (14.0-18.0); MEAN CELL VOLUME 93.3 fL (80-100); MEAN CORPUSCULAR HGB CONC 34.3 g/dl (32-36); RED CELL DISTRIBUTION WIDTH SD 47.5 fL (36.4-46.3); WHITE BLOOD COUNT 10.96 K/uL (4.8-10.8)
[2018-01-31 09:14] LABS: PLATELET COUNT 6 K/uL (130-400)
[2018-01-31 09:15] LABS: IG# 0.07 K/uL (0.00-0.02); LYMPH % 6.8 %; LYMPH ABS # 0.75 K/uL (1.2-3.4); MONO % 6.5 %; MONO ABS # 0.71 K/uL (0.11-0.59); NEUT % 86.1 %; NEUT ABS # 9.43 K/uL (1.4-6.5)
[2018-01-31 11:27] VITALS: BP 132/85; PULSE 88; TEMP 36.6; O2SAT 97
[2018-01-31 15:43] VITALS: BP 135/66; PULSE 89; TEMP 36.4; O2SAT 97
[2018-01-31 19:37] VITALS: BP 130/63; PULSE 91; TEMP 36.4; O2SAT 97
[2018-01-31 22:50] VITALS: BP 144/76; PULSE 83; TEMP 36.7; O2SAT 98
[2018-02-01 03:50] VITALS: BP 124/67; PULSE 69; TEMP 36.3; O2SAT 100
--- NOTE | 2018-02-01 06:48 | Family Medicine Progress Note ---
Progress Note Date of Service Feb 01, 2018. Subjective Pt evaluation today including: conversation w/ patient, conversation w/ family Pain: None PO Intake: Good Voiding: no voiding problems Dr. Martinez [facility] was present at time of patient visit this morning. Plan was discussed with Dr. Martinez and Mr. Brown (see assessment/plan). Mr. Brown feels well today. He notes the bruises on his arms and legs are much better today. He has been up walking around, feels his energy is good, and feels at his normal healthy baseline. He has no active bleeding. No new bruises/ petechiae. He is eating well. Denies nausea, vomiting, epistaxsis, shortness of breath, chest pain, and rash. He is voiding well and had a bowel movement this morning which was soft, brown, and without blood/melena. His is present at time of interview and had numerous questions related to the pathogenesis of ITP. Counseling provided. No other questions/concerns today. Constitutional: No fever, No chills, No sweats, No weakness, No fatigue Eyes: No worsening of vision ENT: No unusual epistaxis, No nasal symptoms Respiratory: No cough, No sputum, No shortness of breath, No dyspnea at rest , No hemoptysis Cardiovascular: No chest pain, No palpitations Abdomen: No pain, No nausea, No vomiting, No diarrhea, No constipation, No GI bleeding Musculoskeletal: No muscle pain, No swelling Male : + nocturia more than once/night (2x/night), No dysuria, No incontinence Neurologic: No weakness, No numbness/tingling, No vertigo, No balance problems Psychiatric: No depression symptoms Endo: No fatigue Skin: No rash Medications Current Inpatient Medications Medications (Trade) Dose Ordered Sig/Giovanny Route Start Time Stop Time Status Last Admin Dose Admin Acetaminophen (Tylenol Tab) 650 mg Q4H PRN PO 01/29/18 23:00 02/28/18 22:59 Magnesium Hydroxide (Milk Of Magnesia Susp) 30 ml Q6H PRN PO 01/29/18 23:00 02/28/18 22:59 Ondansetron HCl (Zofran Inj) 4 mg Q6H PRN IV 01/29/18 23:00 02/28/18 22:59 Alfuzosin HCl (Uroxatral Tab) 10 mg DAILY PO 01/30/18 08:00 03/01/18 08:59 02/01/18 08:00 10 MG Montelukast Sodium (Singulair Tab) 10 mg DAILY PO 01/30/18 08:00 03/01/18 08:59 02/01/18 08:00 10 MG Dexamethasone (Decadron Tab) 40 mg DAILY PO 01/30/18 09:00 02/02/18 08:01 02/01/18 08:01 40 MG Sodium Chloride ([place] Nasal [place]) 1 sprays PRN PRN NA 01/30/18 20:15 03/01/18 20:14 Objective Vital Signs Date Time Temp Pulse Resp B/P (MAP) Pulse Ox O2 Delivery O2 Flow Rate FiO2 02/01/18 11:30 Room Air 02/01/18 11:05 36.6 76 18 148/77 (100) 99 Room Air 02/01/18 07:32 36.6 77 18 121/69 (86) 99 Room Air 02/01/18 03:50 36.3 69 16 124/67 (86) 100 Room Air 01/31/18 22:50 36.7 83 18 144/76 (98) 98 Room Air 01/31/18 20:40 Room Air 01/31/18 19:37 36.4 91 18 130/63 (85) 97 Room Air 01/31/18 16:00 Room Air 01/31/18 15:43 36.4 89 18 135/66 (89) 97 Room Air Physical Exam General Appearance: WD/WN, no apparent distress Eyes: normal inspection, sclerae normal ENT: hearing grossly normal Neck: supple, no adenopathy, no JVD, no carotid bruits, trachea midline Respiratory/Chest: chest non-tender, lungs clear, normal breath sounds, no respiratory distress, no accessory muscle use Cardiovascular: no edema, no gallop, no JVD, + systolic murmur Abdomen: normal bowel sounds, non tender, soft, no organomegaly, no pulsatile mass Extremities: non-tender, normal inspection Neurologic/Psychiatric: alert, normal mood/affect, oriented x 3 Skin: normal color, warm/dry, no rash (patechiae still prseent on ankles bilaterally.) Laboratory Results 02/01/18 05:51 Red Blood Count 2.90, Mean Corpuscular Volume 93.4, Mean Corpuscular Hemoglobin 31.7, Mean Corpuscular Hemoglobin Concent 33.9, Mean Platelet Volume 11.0, Neutrophils (%) (Auto) 82.9, Lymphocytes (%) (Auto) 10.1, Monocytes (%) (Auto) 6.5, Eosinophils (%) (Auto) 0.0, Basophils (%) (Auto) 0.0, Neutrophils # (Auto) 9.76, Lymphocytes # (Auto) 1.19, Monocytes # (Auto) 0.76, Eosinophils # (Auto) 0.00, Basophils # (Auto) 0.00 Test 02/01/18 05:51 White Blood Count 11.77 K/uL (4.8-10.8) Red Blood Count 2.90 M/uL (4.7-6.1) Hemoglobin 9.2 g/dL (14.0-18.0) Hematocrit 27.1 % (42-52) Mean Corpuscular Volume 93.4 fL (80-100) Mean Corpuscular Hemoglobin 31.7 pg (25-34) Mean Corpuscular Hemoglobin Concent 33.9 g/dl (32-36) Platelet Count 19 K/uL (130-400) Mean Platelet Volume 11.0 fL (7.4-10.4) Neutrophils (%) (Auto) 82.9 % Lymphocytes (%) (Auto) 10.1 % Monocytes (%) (Auto) 6.5 % Eosinophils (%) (Auto) 0.0 % Basophils (%) (Auto) 0.0 % Neutrophils # (Auto) 9.76 K/uL (1.4-6.5) Lymphocytes # (Auto) 1.19 K/uL (1.2-3.4) Monocytes # (Auto) 0.76 K/uL (0.11-0.59) Eosinophils # (Auto) 0.00 K/uL (0-0.5) Basophils # (Auto) 0.00 K/uL (0-0.2) RDW Standard Deviation 48.2 fL (36.4-46.3) RDW Coefficient of Variation 14.0 % (11.5-14.5) Immature Granulocyte % (Auto) 0.5 % Immature Granulocyte # (Auto) 0.06 K/uL (0.00-0.02) Assessment and Plan Mr. Levi Brown is a 82yo M with a PMHx of cataract surgery, hemorrhoids, and chronic sinusitis admitted for severe thrombocytopenia (plt = 0) and 2-3 weeks of easy bruising with one episode of blood/clots in his bowel movement. No signs of active bleeding in the last 48 hours. Thrombocytopenia with high suspicion for ITP - No hx of thrombocytopenia, personal or family. No recent heparin exposure. - Iron studies do not suggest iron deficiency - Dexamethasone 40mg PO daily x4 days total, 3 doses completed. Platelets have begin to rise and were at 19K today. - Other causes of thrombocytopenia are unlikely, low suspicion for myelodysplasia and aplastic anemia given OK leukocyte and erythrocyte counts. Normal coags and Fibinogen/FibDegradation r/o DIC. [facility] to review peripheral smear for evidence of microangiopathy, but feel it is also unlikely. - CBC+Diff daily - Discussed case with [facility] today. They recommend completing steroid course then observing tomorrow to make sure the platelets continue to rise. Plan for discharge Sat morning with close followup to [facility] for 2x/week CBCs. Anemia - Hgb was ~12 two years ago, he is currently 9.2 - With normal iron studies likely reflects blood loss anemia - Transfuse if hgb drops to <7.0 - He is not currently symptomatic. If he develops symptomatic anemia transfuse to a goal of >8.0. Urinary Retention - Continue PROFESSIONAL PROGRAMMER ANALYST Alfuzosin Allergies - Continue PROFESSIONAL PROGRAMMER ANALYST Singulair Resident Physician Supervision Note: I was present with the resident physician during the history and exam. I discussed the case with the resident and agree with the findings and plan as documented in the note. Any exceptions or clarifications are listed here: The patient is without complaints today. His platelet count is up to 19,000. Discussed with the patient and his that this is a good response to the steroids and consistent with what we would expect with ITP. The patients hemoglobin remains stable. Suspect his anemia is secondary to acute blood loss (hemorrhoidal bleeding), although this is limited in that there is no hemoglobin measurements between his current admission and two years ago. Documented By: Orlando Resendiz Continued [facility] stay due to: home environment unsafe for pt (Plt count still critical, has only recently risen to 19K. High bleed risk.) Resident Tracking Resident Involvement: Resident Care Provided Care Provided: Adult [facility]
[2018-02-01 06:49] LABS: PLATELET COUNT 19 K/uL (130-400)
[2018-02-01 06:50] LABS: HEMATOCRIT 27.1 % (42-52); HEMOGLOBIN 9.2 g/dL (14.0-18.0); MEAN CELL VOLUME 93.4 fL (80-100); MEAN CORPUSCULAR HEMOGLOBIN 31.7 pg (25-34); MEAN CORPUSCULAR HGB CONC 33.9 g/dl (32-36); RED CELL DISTRIBUTION WIDTH SD 48.2 fL (36.4-46.3); WHITE BLOOD COUNT 11.77 K/uL (4.8-10.8)
[2018-02-01 07:00] LABS: IG# 0.06 K/uL (0.00-0.02); LYMPH % 10.1 %; LYMPH ABS # 1.19 K/uL (1.2-3.4); MONO % 6.5 %; MONO ABS # 0.76 K/uL (0.11-0.59); NEUT % 82.9 %; NEUT ABS # 9.76 K/uL (1.4-6.5)
[2018-02-01 07:32] VITALS: BP 121/69; PULSE 77; TEMP 36.6; O2SAT 99
[2018-02-01] MEDS: ALFUZosin TAB 10 MG TAB PO SCH (08:00)
[2018-02-01] MEDS: MONTELUKAST SOD 10 MG TAB PO SCH (08:00)
[2018-02-01] MEDS: DEXAMETHASONE 4 MG TAB PO SCH (08:01)
[2018-02-01 11:05] VITALS: BP 148/77; PULSE 76; TEMP 36.6; O2SAT 99
[2018-02-01 14:39] VITALS: BP 131/68; PULSE 89; TEMP 36.6; O2SAT 95
--- NOTE | 2018-02-01 17:58 | Hematology/Oncology Prog Note ---
Hematology/Onc Progress Note Date of Service Feb 01, 2018. 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 Brown is doing well. He denies any bleeding or bruising. He also has no pain. Review of Systems: Constitutional: No fatigue Eyes: No worsening of vision ENT: No unusual epistaxis Respiratory: No cough, No hemoptysis Cardiovascular: No chest pain Abdomen: No GI bleeding Male : No hematuria Heme: No abnormal bleeding/bruising Skin: No rash Vital Signs Vital Signs Past 12 Hours Date Time Temp Pulse Resp B/P (MAP) Pulse Ox O2 Delivery O2 Flow Rate FiO2 02/01/18 17:18 Room Air 02/01/18 14:39 36.6 89 18 131/68 (89) 95 Room Air 02/01/18 11:30 Room Air 02/01/18 11:05 36.6 76 18 148/77 (100) 99 Room Air 02/01/18 07:32 36.6 77 18 121/69 (86) 99 Room Air Physical Exam Constitutional: General Apperance: heathly-appearing Level of Distress: NAD Psychiatric: Mental Status: active & alert Orientation: oriented except where noted Lungs: Auscuitation: breath sounds normal Cardiovascular: Heart Auscultation: RRR Abdomen: Inspection & Palpation: soft, no tenderness, guarding & rebound Extremities: no edema Laboratory Last 24 Hours Test 02/01/18 05:51 White Blood Count 11.77 K/uL Red Blood Count 2.90 M/uL Hemoglobin 9.2 g/dL Hematocrit 27.1 % Mean Corpuscular Volume 93.4 fL Mean Corpuscular Hemoglobin 31.7 pg Mean Corpuscular Hemoglobin Concent 33.9 g/dl Platelet Count 19 K/uL Mean Platelet Volume 11.0 fL Neutrophils (%) (Auto) 82.9 % Lymphocytes (%) (Auto) 10.1 % Monocytes (%) (Auto) 6.5 % Eosinophils (%) (Auto) 0.0 % Basophils (%) (Auto) 0.0 % Neutrophils # (Auto) 9.76 K/uL Lymphocytes # (Auto) 1.19 K/uL Monocytes # (Auto) 0.76 K/uL Eosinophils # (Auto) 0.00 K/uL Basophils # (Auto) 0.00 K/uL RDW Standard Deviation 48.2 fL RDW Coefficient of Variation 14.0 % Immature Granulocyte % (Auto) 0.5 % Immature Granulocyte # (Auto) 0.06 K/uL Assessment & Plan Mr. Brown is on day 3/4 of high-dose dexamethasone and his platelets are improving. We should continue to observe him for a few more days, to make sure his platelets continue to rise after his steroids are completed. Once he is ready for discharge, he will need to follow closely with my office to monitor his platelets for continued recovery. We will make these arrangements once he is prepared to go home.
[2018-02-01 18:39] VITALS: BP 151/83; PULSE 97; TEMP 36.6; O2SAT 97
[2018-02-01 23:05] VITALS: BP 156/72; PULSE 84; TEMP 36.4; O2SAT 99
[2018-02-02 00:20] VITALS: BP 142/73
[2018-02-02 07:06] VITALS: BP 131/68; PULSE 79; TEMP 36.4; O2SAT 97
[2018-02-02 07:38] LABS: HEMATOCRIT 27.8 % (42-52); HEMOGLOBIN 9.5 g/dL (14.0-18.0); MEAN CELL VOLUME 94.2 fL (80-100); MEAN CORPUSCULAR HEMOGLOBIN 32.2 pg (25-34); MEAN CORPUSCULAR HGB CONC 34.2 g/dl (32-36); RED CELL DISTRIBUTION WIDTH CV 14.1 % (11.5-14.5); RED CELL DISTRIBUTION WIDTH SD 48.5 fL (36.4-46.3); WHITE BLOOD COUNT 10.74 K/uL (4.8-10.8)
[2018-02-02] MEDS: ALFUZosin TAB 10 MG TAB PO SCH (07:41)
[2018-02-02] MEDS: DEXAMETHASONE 4 MG TAB PO SCH (07:41)
[2018-02-02] MEDS: MONTELUKAST SOD 10 MG TAB PO SCH (07:41)
[2018-02-02 07:51] LABS: MEAN PLATELET VOLUME 10.6 fL (7.4-10.4); PLATELET COUNT 31 K/uL (130-400)
[2018-02-02 07:52] LABS: IG# 0.08 K/uL (0.00-0.02); LYMPH % 13.7 %; LYMPH ABS # 1.47 K/uL (1.2-3.4); MONO % 7.5 %; MONO ABS # 0.81 K/uL (0.11-0.59); NEUT % 78.1 %; NEUT ABS # 8.38 K/uL (1.4-6.5)
[2018-02-02 07:59] LABS: CALCIUM 8.6 mg/dl (8.5-10.1); POTASSIUM 3.9 mmol/L (3.5-5.1)
[2018-02-02 11:25] VITALS: BP 149/70; PULSE 78; TEMP 36.4; O2SAT 92
[2018-02-02 15:00] VITALS: BP 149/71; PULSE 74; TEMP 36.6; O2SAT 96
--- NOTE | 2018-02-02 15:15 | Family Medicine Progress Note ---
Progress Note Date of Service Feb 02, 2018. Subjective Pt evaluation today including: conversation w/ patient, conversation w/ family , physical exam, chart review, lab review, review of studies Pain: None PO Intake: Good Voiding: no voiding problems, no incontinence Mr. Brown reports he feels well today. His was present during rounds. He denies any signs of active bleeding including nosebleeds, new bruising, and any blood in his bowel movements. He had a bowel movement this morning without blood /melena. Denies abdominal pain, nausea, diarrhea, constipation. He feels the bruises on his arms and chest continue to heal well and look better than yesterday. His feels his color looks much better. He had not had any fever, chills, shortness of breath, chest pain, or dizziness overnight. He slept well and tolerated his breakfast this morning well. Constitutional: No fever, No chills, No sweats, No weight loss, No weakness , No fatigue ENT: No unusual epistaxis, No nasal symptoms, No sore throat Respiratory: No cough, No wheezing, No shortness of breath, No dyspnea on exertion, No dyspnea at rest Cardiovascular: No chest pain, No palpitations Abdomen: No pain, No nausea, No vomiting, No diarrhea, No constipation, No GI bleeding Musculoskeletal: No muscle pain Male : No dysuria, No urinary frequency Neurologic: No weakness Endo: No fatigue Skin: No rash Medications Current Inpatient Medications Medications (Trade) Dose Ordered Sig/Giovanny Route Start Time Stop Time Status Last Admin Dose Admin Acetaminophen (Tylenol Tab) 650 mg Q4H PRN PO 01/29/18 23:00 02/28/18 22:59 Magnesium Hydroxide (Milk Of Magnesia Susp) 30 ml Q6H PRN PO 01/29/18 23:00 02/28/18 22:59 Ondansetron HCl (Zofran Inj) 4 mg Q6H PRN IV 01/29/18 23:00 02/28/18 22:59 Alfuzosin HCl (Uroxatral Tab) 10 mg DAILY PO 01/30/18 08:00 03/01/18 08:59 02/02/18 07:41 10 MG Montelukast Sodium (Singulair Tab) 10 mg DAILY PO 01/30/18 08:00 03/01/18 08:59 02/02/18 07:41 10 MG Sodium Chloride ([place] Nasal [place]) 1 sprays PRN PRN NA 01/30/18 20:15 03/01/18 20:14 Objective Vital Signs Date Time Temp Pulse Resp B/P (MAP) Pulse Ox O2 Delivery O2 Flow Rate FiO2 02/02/18 15:00 36.6 74 17 149/71 (97) 96 02/02/18 11:25 36.4 78 18 149/70 (96) 92 02/02/18 08:15 Room Air 02/02/18 07:06 36.4 79 19 131/68 (89) 97 Room Air 02/02/18 00:20 142/73 (96) 02/02/18 00:00 Room Air 02/01/18 23:05 36.4 84 20 156/72 (100) 99 Room Air 02/01/18 18:39 36.6 97 18 151/83 (105) 97 Room Air 02/01/18 17:18 Room Air Physical Exam General Appearance: WD/WN, no apparent distress Eyes: normal inspection, PERRL, EOMI, sclerae normal ENT: hearing grossly normal Neck: supple, no adenopathy, no JVD, no carotid bruits, trachea midline Respiratory/Chest: chest non-tender, lungs clear, normal breath sounds, no respiratory distress, no accessory muscle use Cardiovascular: regular rate, rhythm, no edema, no JVD, + systolic murmur Abdomen: normal bowel sounds, non tender, soft, no organomegaly Extremities: normal inspection, + pertinent finding (Eccymoses on forearms bilaterally continue to improve) Neurologic/Psychiatric: alert, normal mood/affect, oriented x 3 Skin: normal color, warm/dry, no rash Laboratory Results 02/02/18 07:12 Red Blood Count 2.95, Mean Corpuscular Volume 94.2, Mean Corpuscular Hemoglobin 32.2, Mean Corpuscular Hemoglobin Concent 34.2, Mean Platelet Volume 10.6, Neutrophils (%) (Auto) 78.1, Lymphocytes (%) (Auto) 13.7, Monocytes (%) (Auto) 7.5, Eosinophils (%) (Auto) 0.0, Basophils (%) (Auto) 0.0, Neutrophils # (Auto) 8.38, Lymphocytes # (Auto) 1.47, Monocytes # (Auto) 0.81, Eosinophils # (Auto) 0.00, Basophils # (Auto) 0.00 02/02/18 07:12 Test 02/02/18 07:12 White Blood Count 10.74 K/uL (4.8-10.8) Red Blood Count 2.95 M/uL (4.7-6.1) Hemoglobin 9.5 g/dL (14.0-18.0) Hematocrit 27.8 % (42-52) Mean Corpuscular Volume 94.2 fL (80-100) Mean Corpuscular Hemoglobin 32.2 pg (25-34) Mean Corpuscular Hemoglobin Concent 34.2 g/dl (32-36) Platelet Count 31 K/uL (130-400) Mean Platelet Volume 10.6 fL (7.4-10.4) Neutrophils (%) (Auto) 78.1 % Lymphocytes (%) (Auto) 13.7 % Monocytes (%) (Auto) 7.5 % Eosinophils (%) (Auto) 0.0 % Basophils (%) (Auto) 0.0 % Neutrophils # (Auto) 8.38 K/uL (1.4-6.5) Lymphocytes # (Auto) 1.47 K/uL (1.2-3.4) Monocytes # (Auto) 0.81 K/uL (0.11-0.59) Eosinophils # (Auto) 0.00 K/uL (0-0.5) Basophils # (Auto) 0.00 K/uL (0-0.2) RDW Standard Deviation 48.5 fL (36.4-46.3) RDW Coefficient of Variation 14.1 % (11.5-14.5) Immature Granulocyte % (Auto) 0.7 % Immature Granulocyte # (Auto) 0.08 K/uL (0.00-0.02) Hypersegmented Polys 1+ Platelet Estimate DECREASED Giant Platelets 1+ Anion Gap 8.0 mmol/L (3-11) Est Creatinine Clear Calc Drug Dose 61.7 ml/min Estimated GFR () 81.4 Estimated GFR (Non- 70.3 BUN/Creatinine Ratio 31.6 (10-20) Calcium Level 8.6 mg/dl (8.5-10.1) Assessment and Plan Mr. Levi Brown is a 82yo M with a PMHx of cataract surgery, hemorrhoids, and chronic sinusitis admitted for severe thrombocytopenia (plt = 0) and 2-3 weeks of easy bruising with one episode of blood/clots in his bowel movement. No signs of active bleeding in the last 72 hours. Thrombocytopenia with high suspicion for ITP - No hx of thrombocytopenia, personal or family. No recent heparin exposure. - Iron studies do not suggest iron deficiency - Dexamethasone 40mg PO daily x4 days total, all doses completed. Platelets have begin to rise and were at 31K today up from 19K yesterday. - Other causes of thrombocytopenia are unlikely, low suspicion for myelodysplasia and aplastic anemia given OK leukocyte and erythrocyte counts. Normal coags and Fibinogen/FibDegradation r/o DIC. Heme to review peripheral smear for evidence of microangiopathy, but feel it is also unlikely. - CBC+Diff daily - Plan to check plt in the morning. If they continue to rise now that the dexamethasone course is complete plan for discharge Sat morning with close followup to [facility] for 2x/week CBCs. Anemia - Hgb was ~12 two years ago, he is currently 9.5 and has been stable in the 9' s throughout admission. - With normal iron studies likely reflects blood loss anemia - Transfuse if hgb drops to <7.0 - He is not currently symptomatic. If he develops symptomatic anemia transfuse to a goal of >8.0. Urinary Retention - Continue MOTORCYCLE DELIVERER Alfuzosin Allergies - Continue MOTORCYCLE DELIVERER Singulair Continued [facility] stay due to: other (Pt has been a high bleed risk. ) Assessment/Plan Resident Physician Supervision Note: I was present with Dr. Wing during the history and exam. I discussed the case with the resident and agree with the findings and plan as documented in the note. Any exceptions or clarifications are listed here: Pt seen and examined at bedside. Endorses feeling well today without new stigmata of bleeding - no epistaxis, melena, hematochezia, bruising. On examination, S1/S2 nl RRR, CTAB. Abd NT/ND, BS +ve ITP - improving platelet count to 31 - continue monitoring, complete dexamethasone. Hematology consultation appreciated. Anemia - Hgb stable - transfuse if < 7 or if symptomatic to > 8
[2018-02-02 19:54] VITALS: BP 150/76; PULSE 75; TEMP 36.7; O2SAT 99
[2018-02-03 00:05] VITALS: BP 166/80; PULSE 69; TEMP 36.8; O2SAT 99
[2018-02-03 03:53] VITALS: BP 124/65; PULSE 63; TEMP 36.5; O2SAT 100
[2018-02-03 07:15] LABS: HEMATOCRIT 27.1 % (42-52); HEMOGLOBIN 9.1 g/dL (14.0-18.0); MEAN CELL VOLUME 93.4 fL (80-100); MEAN CORPUSCULAR HEMOGLOBIN 31.4 pg (25-34); MEAN CORPUSCULAR HGB CONC 33.6 g/dl (32-36); RED CELL DISTRIBUTION WIDTH CV 14.1 % (11.5-14.5); RED CELL DISTRIBUTION WIDTH SD 47.9 fL (36.4-46.3); WHITE BLOOD COUNT 9.84 K/uL (4.8-10.8)
[2018-02-03 07:18] LABS: MEAN PLATELET VOLUME 10.2 fL (7.4-10.4); PLATELET COUNT 30 K/uL (130-400)
[2018-02-03 08:00] VITALS: O2SAT 100
[2018-02-03] MEDS: MONTELUKAST SOD 10 MG TAB PO SCH (08:28)
[2018-02-03] MEDS: ALFUZosin TAB 10 MG TAB PO SCH (08:28)
[2018-02-03 10:32] VITALS: BP 126/64; PULSE 71; TEMP 36.4; O2SAT 97
--- NOTE | 2018-02-03 11:29 | Hematology/Oncology Prog Note ---
Hematology/Onc Progress Note Date of Service Feb 03, 2018. Diagnoses Thrombocytopenia secondary to ITP Medications Medications Administered Medications (Trade) Dose Ordered Sig/Giovanny Route Start Time Stop Time Status Last Admin Dose Admin Alfuzosin HCl (Uroxatral Tab) 10 mg DAILY PO 01/30/18 08:00 03/01/18 08:59 02/03/18 08:28 10 MG Montelukast Sodium (Singulair Tab) 10 mg DAILY PO 01/30/18 08:00 03/01/18 08:59 02/03/18 08:28 10 MG Dexamethasone (Decadron Tab) 40 mg DAILY PO 01/30/18 09:00 02/02/18 08:01 DC 02/02/18 07:41 40 MG Subjective Mr. Brown is feeling well today. He denies any bleeding or bruising. He also has no pain. Review of Systems: Constitutional: No fever, No fatigue ENT: No unusual epistaxis Respiratory: No cough, No hemoptysis Cardiovascular: No chest pain Abdomen: No pain, No GI bleeding Male : No hematuria Heme: No abnormal bleeding/bruising Vital Signs Vital Signs Past 12 Hours Date Time Temp Pulse Resp B/P (MAP) Pulse Ox O2 Delivery O2 Flow Rate FiO2 02/03/18 10:32 36.4 71 18 126/64 (84) 97 Room Air 02/03/18 08:00 100 Room Air 02/03/18 03:53 36.5 63 18 124/65 (84) 100 Room Air 02/03/18 00:05 36.8 69 18 166/80 (108) 99 Room Air Physical Exam Constitutional: General Apperance: heathly-appearing Level of Distress: NAD Psychiatric: Mental Status: active & alert Orientation: oriented except where noted Lungs: Auscuitation: breath sounds normal Cardiovascular: Heart Auscultation: RRR Abdomen: Inspection & Palpation: soft, no tenderness, guarding & rebound Extremities: no edema Laboratory Last 24 Hours Test 02/03/18 06:56 White Blood Count 9.84 K/uL Red Blood Count 2.90 M/uL Hemoglobin 9.1 g/dL Hematocrit 27.1 % Mean Corpuscular Volume 93.4 fL Mean Corpuscular Hemoglobin 31.4 pg Mean Corpuscular Hemoglobin Concent 33.6 g/dl RDW Standard Deviation 47.9 fL RDW Coefficient of Variation 14.1 % Platelet Count 30 K/uL Mean Platelet Volume 10.2 fL Assessment & Plan Mr. Brown has completed his 4 days of high-dose dexamethasone. His platelets improved and are out of the range with the highest risk of spontaneous bleeding. However, they stalled some today. I would like to see his count tomorrow as well, as patients will sometimes relapse after stopping steroids. If he remains in the 30s or improves, he can likely go home and follow up with me in the office next week. If he falls again, we'll need to try another strategy to control his ITP.
--- NOTE | 2018-02-03 12:59 | Family Medicine Progress Note ---
Progress Note Date of Service Feb 03, 2018. Subjective Pt evaluation today including: conversation w/ patient, physical exam, chart review, lab review Mr. Levi Brown is a 82yo M with a PMHx of cataract surgery, hemorrhoids, and chronic sinusitis admitted for severe thrombocytopenia (plt = 0) and 2-3 weeks of easy bruising with several episodes of blood/clots with his stool. He has not noticed any new bleeding in his subsequent bowel motions and has no complaints today. He feels in his usual state of health and is ready to return home. Constitutional: No fever, No chills, No sweats, No weight loss, No weakness , No fatigue ENT: No unusual epistaxis, No nasal symptoms, No sore throat Respiratory: No cough, No wheezing, No shortness of breath, No dyspnea on exertion, No dyspnea at rest Cardiovascular: No chest pain, No palpitations Abdomen: No pain, No nausea, No vomiting, No diarrhea, No constipation, No GI bleeding Musculoskeletal: No muscle pain Male : No dysuria, No urinary frequency Neurologic: No weakness Endo: No fatigue Skin: No rash Medications Current Inpatient Medications Medications (Trade) Dose Ordered Sig/Giovanny Route Start Time Stop Time Status Last Admin Dose Admin Acetaminophen (Tylenol Tab) 650 mg Q4H PRN PO 01/29/18 23:00 02/28/18 22:59 Magnesium Hydroxide (Milk Of Magnesia Susp) 30 ml Q6H PRN PO 01/29/18 23:00 02/28/18 22:59 Ondansetron HCl (Zofran Inj) 4 mg Q6H PRN IV 01/29/18 23:00 02/28/18 22:59 Alfuzosin HCl (Uroxatral Tab) 10 mg DAILY PO 01/30/18 08:00 03/01/18 08:59 02/03/18 08:28 10 MG Montelukast Sodium (Singulair Tab) 10 mg DAILY PO 01/30/18 08:00 03/01/18 08:59 02/03/18 08:28 10 MG Sodium Chloride ([place] Nasal [place]) 1 sprays PRN PRN NA 01/30/18 20:15 03/01/18 20:14 Objective Vital Signs Date Time Temp Pulse Resp B/P (MAP) Pulse Ox O2 Delivery O2 Flow Rate FiO2 02/03/18 10:32 36.4 71 18 126/64 (84) 97 Room Air 02/03/18 08:00 100 Room Air 02/03/18 03:53 36.5 63 18 124/65 (84) 100 Room Air 02/03/18 00:05 36.8 69 18 166/80 (108) 99 Room Air 02/02/18 20:00 Room Air 02/02/18 19:54 36.7 75 20 150/76 (100) 99 Room Air 02/02/18 15:00 36.6 74 17 149/71 (97) 96 Physical Exam Notes: General Appearance: WD/WN, no apparent distress Eyes: normal inspection, PERRL, EOMI, sclerae normal ENT: hearing grossly normal Neck: supple, no adenopathy, no JVD, no carotid bruits, trachea midline Respiratory/Chest: chest non-tender, lungs clear, normal breath sounds, no respiratory distress, no accessory muscle use Cardiovascular: regular rate, rhythm, no edema, no JVD, + systolic murmur Abdomen: normal bowel sounds, non tender, soft, no organomegaly Extremities: normal inspection, + pertinent finding (Eccymoses on forearms bilaterally continue to improve) Neurologic/Psychiatric: alert, normal mood/affect, oriented x 3 Skin: normal color, warm/dry, no rash Laboratory Results 02/03/18 06:56 Test 02/03/18 06:56 Red Blood Count 2.90 M/uL (4.7-6.1) Mean Corpuscular Volume 93.4 fL (80-100) Mean Corpuscular Hemoglobin 31.4 pg (25-34) Mean Corpuscular Hemoglobin Concent 33.6 g/dl (32-36) RDW Standard Deviation 47.9 fL (36.4-46.3) RDW Coefficient of Variation 14.1 % (11.5-14.5) Mean Platelet Volume 10.2 fL (7.4-10.4) Assessment and Plan Thrombocytopenia with high suspicion for ITP - Dexamethasone 4 day course completed, platelets improved to 31, today with no steroid they are holding at 30. - CBC+Diff daily - Continuing to monitor platelets, if platelets hold steady or rise tomorrow will discharge Monday with close followup to [facility] for 2x/week CBCs. Anemia - Hgb was ~12 two years ago, he is currently 9.5 and has been stable in the 9' s throughout admission. - Little concern for active bleeding Urinary Retention - Continuing home Alfuzosin Allergies - Continuing home Singulair Resident Tracking Resident Involvement: Resident Care Provided Care Provided: Adult Hospital Medicine Assessment/Plan Resident Physician Supervision Note: I was present with Dr. Tan during the history and exam. I discussed the case with the resident and agree with the findings and plan as documented in the note. Any exceptions or clarifications are listed here: Pt seen and examined at bedside. Pt reports feeling at his baseline - up and around the room doing an exercise routine. still no epistaxis, melena, hematochezia, bruising. On examination, nasal mucosa is nl aside from mild healing region on the septum. S1/S2 nl RRR, CTAB. Abd NT/ND, BS +ve ITP - PLT stable at 30 - per hematology, continue monitoring. Dexamethasone complete Anemia - Hgb stable - transfuse if < 7 or if symptomatic to > 8
[2018-02-03 15:01] VITALS: BP 149/68; PULSE 84; TEMP 36.5; O2SAT 97
[2018-02-03 22:46] VITALS: BP 149/74; PULSE 67; TEMP 36.3; O2SAT 97
[2018-02-04 06:58] VITALS: BP 122/69; PULSE 57; TEMP 36.3; O2SAT 97
[2018-02-04] MEDS: MONTELUKAST SOD 10 MG TAB PO SCH (07:49)
[2018-02-04] MEDS: ALFUZosin TAB 10 MG TAB PO SCH (07:49)
[2018-02-04 09:03] LABS: BASO % 0.1 %; BASO ABS # 0.01 K/uL (0-0.2); EOS % 1.8 %; EOS ABS # 0.14 K/uL (0-0.5); HEMATOCRIT 33.7 % (42-52); HEMOGLOBIN 11.2 g/dL (14.0-18.0); LYMPH % 23.5 %; LYMPH ABS # 1.82 K/uL (1.2-3.4); MEAN CELL VOLUME 94.4 fL (80-100); MEAN CORPUSCULAR HEMOGLOBIN 31.4 pg (25-34); MEAN CORPUSCULAR HGB CONC 33.2 g/dl (32-36); MEAN PLATELET VOLUME 9.1 fL (7.4-10.4); MONO % 9.4 %; MONO ABS # 0.73 K/uL (0.11-0.59); NEUT % 63.9 %; NEUT ABS # 4.93 K/uL (1.4-6.5); PLATELET COUNT 9 K/uL (130-400); RED CELL DISTRIBUTION WIDTH CV 14.2 % (11.5-14.5); WHITE BLOOD COUNT 7.73 K/uL (4.8-10.8)
--- NOTE | 2018-02-04 12:01 | Hematology/Oncology Prog Note ---
Hematology/Onc Progress Note Date of Service Feb 04, 2018. Diagnoses Thrombocytopenia secondary to ITP Medications Medications Administered Medications (Trade) Dose Ordered Sig/Giovanny Route Start Time Stop Time Status Last Admin Dose Admin Alfuzosin HCl (Uroxatral Tab) 10 mg DAILY PO 01/30/18 08:00 03/01/18 08:59 02/04/18 07:49 10 MG Montelukast Sodium (Singulair Tab) 10 mg DAILY PO 01/30/18 08:00 03/01/18 08:59 02/04/18 07:49 10 MG Dexamethasone (Decadron Tab) 40 mg DAILY PO 01/30/18 09:00 02/02/18 08:01 DC 02/02/18 07:41 40 MG Subjective Mr. Brown's mood is lower today. He's disappointed about the decline in his platelets. He again denies any bleeding or bruising. He also denies any fevers, sweats, lymphadenopathy, or pain. Review of Systems: Constitutional: No fever, No sweats, No fatigue ENT: No unusual epistaxis Respiratory: No cough, No hemoptysis Cardiovascular: No chest pain Abdomen: No pain, No GI bleeding Male : No hematuria Heme: No abnormal bleeding/bruising, No night sweats Vital Signs Vital Signs Past 12 Hours Date Time Temp Pulse Resp B/P (MAP) Pulse Ox O2 Delivery O2 Flow Rate FiO2 02/04/18 09:01 Room Air 02/04/18 06:58 36.3 57 18 122/69 (86) 97 Room Air Physical Exam Constitutional: General Apperance: heathly-appearing Level of Distress: NAD Psychiatric: Mental Status: active & alert Orientation: oriented except where noted Lungs: Auscuitation: breath sounds normal Cardiovascular: Heart Auscultation: RRR Abdomen: Inspection & Palpation: soft, no tenderness, guarding & rebound Extremities: no edema Laboratory Last 24 Hours Test 02/04/18 08:06 White Blood Count 7.73 K/uL Red Blood Count 3.57 M/uL Hemoglobin 11.2 g/dL Hematocrit 33.7 % Mean Corpuscular Volume 94.4 fL Mean Corpuscular Hemoglobin 31.4 pg Mean Corpuscular Hemoglobin Concent 33.2 g/dl Platelet Count 9 K/uL Mean Platelet Volume 9.1 fL Neutrophils (%) (Auto) 63.9 % Lymphocytes (%) (Auto) 23.5 % Monocytes (%) (Auto) 9.4 % Eosinophils (%) (Auto) 1.8 % Basophils (%) (Auto) 0.1 % Neutrophils # (Auto) 4.93 K/uL Lymphocytes # (Auto) 1.82 K/uL Monocytes # (Auto) 0.73 K/uL Eosinophils # (Auto) 0.14 K/uL Basophils # (Auto) 0.01 K/uL RDW Standard Deviation 49.0 fL RDW Coefficient of Variation 14.2 % Immature Granulocyte % (Auto) 1.3 % Immature Granulocyte # (Auto) 0.10 K/uL Platelet Estimate SIGNIFIC DECREASED Assessment & Plan As I was worried would happen, his platelets are back down into the single digits today. He did have a response to steroids, so one option would be another course. It sometimes takes 2-3 cycles of steroids to see a complete response. I would restart dexamethasone 40 mg PO daily today for four doses. If he continues to have partial responses or if he stops responding, we can move on to other strategies. However, 80-90% of patients respond to steroids, so I am optimistic this will be effective eventually.
[2018-02-04 13:23] LABS: HEMATOCRIT 31.6 % (42-52); HEMOGLOBIN 10.7 g/dL (14.0-18.0); MEAN CELL VOLUME 94.6 fL (80-100); MEAN CORPUSCULAR HGB CONC 33.9 g/dl (32-36); PLATELET COUNT 7 K/uL (130-400); RED CELL DISTRIBUTION WIDTH CV 14.1 % (11.5-14.5); RED CELL DISTRIBUTION WIDTH SD 48.7 fL (36.4-46.3); WHITE BLOOD COUNT 8.03 K/uL (4.8-10.8)
--- NOTE | 2018-02-04 14:23 | Family Medicine Progress Note ---
Progress Note Date of Service Feb 04, 2018. Subjective Mr. Levi Brown is a 82yo M with a PMHx of cataract surgery, hemorrhoids, and chronic sinusitis admitted for severe thrombocytopenia (plt = 0) and 2-3 weeks of easy bruising with several episodes of blood/clots with his stool. He has not noticed any new bleeding and has been anxious to return home and return to his usual active lifestyle. Constitutional: No fever, No chills, No sweats, No weight loss, No weakness , No fatigue ENT: No unusual epistaxis, No nasal symptoms, No sore throat Respiratory: No cough, No wheezing, No shortness of breath, No dyspnea on exertion, No dyspnea at rest Cardiovascular: No chest pain, No palpitations Abdomen: No pain, No nausea, No vomiting, No diarrhea, No constipation, No GI bleeding Musculoskeletal: No muscle pain Male : No dysuria, No urinary frequency Neurologic: No weakness Endo: No fatigue Skin: No rash Medications Current Inpatient Medications Medications (Trade) Dose Ordered Sig/Giovanny Route Start Time Stop Time Status Last Admin Dose Admin Acetaminophen (Tylenol Tab) 650 mg Q4H PRN PO 01/29/18 23:00 02/28/18 22:59 Magnesium Hydroxide (Milk Of Magnesia Susp) 30 ml Q6H PRN PO 01/29/18 23:00 02/28/18 22:59 Ondansetron HCl (Zofran Inj) 4 mg Q6H PRN IV 01/29/18 23:00 02/28/18 22:59 Alfuzosin HCl (Uroxatral Tab) 10 mg DAILY PO 01/30/18 08:00 03/01/18 08:59 02/04/18 07:49 10 MG Montelukast Sodium (Singulair Tab) 10 mg DAILY PO 01/30/18 08:00 03/01/18 08:59 02/04/18 07:49 10 MG Sodium Chloride ([place] Nasal [place]) 1 sprays PRN PRN NA 01/30/18 20:15 03/01/18 20:14 Dexamethasone (Decadron Tab) 40 mg DAILY PO 02/04/18 14:15 02/08/18 14:14 UNV Objective Vital Signs Date Time Temp Pulse Resp B/P (MAP) Pulse Ox O2 Delivery O2 Flow Rate FiO2 02/04/18 09:01 Room Air 02/04/18 06:58 36.3 57 18 122/69 (86) 97 Room Air 02/03/18 22:46 36.3 67 18 149/74 (99) 97 Room Air 02/03/18 21:00 Room Air 02/03/18 15:01 36.5 84 16 149/68 (95) 97 Laboratory Results 02/04/18 13:06 Test 02/04/18 08:06 02/04/18 13:06 White Blood Count 7.73 K/uL (4.8-10.8) Red Blood Count 3.57 M/uL (4.7-6.1) 3.34 M/uL (4.7-6.1) Hemoglobin 11.2 g/dL (14.0-18.0) Hematocrit 33.7 % (42-52) Mean Corpuscular Volume 94.4 fL (80-100) 94.6 fL (80-100) Mean Corpuscular Hemoglobin 31.4 pg (25-34) 32.0 pg (25-34) Mean Corpuscular Hemoglobin Concent 33.2 g/dl (32-36) 33.9 g/dl (32-36) Platelet Count 9 K/uL (130-400) Mean Platelet Volume 9.1 fL (7.4-10.4) Neutrophils (%) (Auto) 63.9 % Lymphocytes (%) (Auto) 23.5 % Monocytes (%) (Auto) 9.4 % Eosinophils (%) (Auto) 1.8 % Basophils (%) (Auto) 0.1 % Neutrophils # (Auto) 4.93 K/uL (1.4-6.5) Lymphocytes # (Auto) 1.82 K/uL (1.2-3.4) Monocytes # (Auto) 0.73 K/uL (0.11-0.59) Eosinophils # (Auto) 0.14 K/uL (0-0.5) Basophils # (Auto) 0.01 K/uL (0-0.2) Immature Granulocyte % (Auto) 1.3 % Immature Granulocyte # (Auto) 0.10 K/uL (0.00-0.02) Platelet Estimate SIGNIFIC DECREASED RDW Standard Deviation 48.7 fL (36.4-46.3) RDW Coefficient of Variation 14.1 % (11.5-14.5) Assessment and Plan ITP - Platelets dropped to 9 overnight. - Started on a second course of Decadron today - Will have to remain inpatient to monitor Anemia - Hgb was ~12 two years ago, he is currently 11.2 and has been stable - Little concern for an active bleed Urinary Retention - Continuing home Alfuzosin Allergies - Continuing home Singulair Resident Tracking Resident Involvement: Resident Care Provided Care Provided: Adult [facility] Medicine Assessment/Plan Resident Physician Supervision Note: I was present with Dr. Tan during the history and exam. I discussed the case with the resident and agree with the findings and plan as documented in the note. Any exceptions or clarifications are listed here: Pt seen and examined at bedside. Pt reports feeling at his baseline. No epistaxis, melena, hematochezia, bruising. On examination, S1/S2 nl RRR, CTAB. Abd NT/ND, BS +ve ITP - PLT decreased to 9 - Repeat, restart dexamethasone. Hematology aware. Anemia - Hgb stable - transfuse if < 7 or if symptomatic to > 8
[2018-02-04] MEDS: DEXAMETHASONE 4 MG TAB PO SCH (15:38)
[2018-02-04 15:53] VITALS: BP 114/68; PULSE 76; TEMP 36.9; O2SAT 99
[2018-02-04 22:59] VITALS: BP 121/67; PULSE 71; TEMP 36.4; O2SAT 98
[2018-02-05] VITALS (9 sets, daily range): BP systolic 114–160; BP diastolic 66–81; PULSE 16–92; TEMP 36.3–36.7; O2SAT 97–99
--- NOTE | 2018-02-05 06:37 | Family Medicine Progress Note ---
Progress Note Date of Service Feb 05, 2018. Subjective Pain: None PO Intake: Good Voiding: no voiding problems Mr. Brown is a pleasant 82yo M admitted for thrombocytopenia noted on CBC with plt=0. He finished one 4 day course of dexamethasone 40mg which prompted a rise in plt count to 31k which then decreased to 9, 7, and 6 following steroid completion. He is now on a second dose of dexa day #2 of 4. He fells well, denies active bleeding, new bruising, shortness of breath, chest pain, numbness/tingling, abdominal pain, nosebleeds, melena/BRBPR. His energy is good and he is walking around the hospital frequently. He is eating well, and sometimes goes to the snack bar for milkshakes. He is frustrated by his prolonged hospital course. He is curious what IVIG is. No other questions/ concerns today. Constitutional: No fever, No chills, No sweats, No weakness, No fatigue Eyes: No worsening of vision, No eye pain ENT: No unusual epistaxis, No nasal symptoms, No sore throat Respiratory: No cough, No wheezing, No shortness of breath, No dyspnea on exertion, No dyspnea at rest, No hemoptysis Cardiovascular: No chest pain Abdomen: No pain, No nausea, No vomiting, No diarrhea, No constipation, No GI bleeding Male : No dysuria Endo: No fatigue Skin: No rash, No new/changing skin lesions, No bleeding Medications Current Inpatient Medications Medications (Trade) Dose Ordered Sig/Giovanny Route Start Time Stop Time Status Last Admin Dose Admin Acetaminophen (Tylenol Tab) 650 mg Q4H PRN PO 01/29/18 23:00 02/28/18 22:59 Magnesium Hydroxide (Milk Of Magnesia Susp) 30 ml Q6H PRN PO 01/29/18 23:00 02/28/18 22:59 Ondansetron HCl (Zofran Inj) 4 mg Q6H PRN IV 01/29/18 23:00 02/28/18 22:59 Alfuzosin HCl (Uroxatral Tab) 10 mg DAILY PO 01/30/18 08:00 03/01/18 08:59 02/05/18 07:38 10 MG Montelukast Sodium (Singulair Tab) 10 mg DAILY PO 01/30/18 08:00 03/01/18 08:59 02/05/18 07:38 10 MG Sodium Chloride ([place] Nasal [place]) 1 sprays PRN PRN NA 01/30/18 20:15 03/01/18 20:14 Dexamethasone (Decadron Tab) 40 mg DAILY PO 02/04/18 15:15 02/08/18 15:14 02/05/18 07:38 40 MG Immune Globulin 20 gm/Empty Bag 200 ml @ 0 mls/hr Q30M IV 02/05/18 10:15 02/05/18 11:46 Objective Vital Signs Date Time Temp Pulse Resp B/P (MAP) Pulse Ox O2 Delivery O2 Flow Rate FiO2 02/05/18 09:56 Room Air 02/05/18 07:03 36.5 72 18 133/75 (94) 97 Room Air 02/04/18 22:59 36.4 71 18 121/67 (85) 98 Room Air 02/04/18 20:15 Room Air 02/04/18 15:53 36.9 76 17 114/68 (83) 99 Room Air Physical Exam General Appearance: WD/WN, no apparent distress Eyes: normal inspection, EOMI, sclerae normal ENT: hearing grossly normal Neck: supple, no adenopathy, no JVD, no carotid bruits, trachea midline Respiratory/Chest: chest non-tender, lungs clear, normal breath sounds, no respiratory distress, no accessory muscle use Cardiovascular: regular rate, rhythm, no edema, + systolic murmur Abdomen: normal bowel sounds, non tender, soft, no organomegaly Extremities: normal range of motion, no pedal edema, normal capillary refill Neurologic/Psychiatric: alert, normal mood/affect, oriented x 3 Skin: normal color, warm/dry, no rash Lymphatic: no adenopathy Laboratory Results 02/05/18 07:10 Red Blood Count 3.31, Mean Corpuscular Volume 92.4, Mean Corpuscular Hemoglobin 31.1, Mean Corpuscular Hemoglobin Concent 33.7, Mean Platelet Volume 12.0, Neutrophils (%) (Auto) 90.1, Lymphocytes (%) (Auto) 7.2, Monocytes (%) (Auto) 1.5, Eosinophils (%) (Auto) 0.0, Basophils (%) (Auto) 0.0, Neutrophils # (Auto) 9.44, Lymphocytes # (Auto) 0.75, Monocytes # (Auto) 0.16, Eosinophils # (Auto) 0.00, Basophils # (Auto) 0.00 Test 02/05/18 07:10 White Blood Count 10.48 K/uL (4.8-10.8) Red Blood Count 3.31 M/uL (4.7-6.1) Hemoglobin 10.3 g/dL (14.0-18.0) Hematocrit 30.6 % (42-52) Mean Corpuscular Volume 92.4 fL (80-100) Mean Corpuscular Hemoglobin 31.1 pg (25-34) Mean Corpuscular Hemoglobin Concent 33.7 g/dl (32-36) Platelet Count 6 K/uL (130-400) Mean Platelet Volume 12.0 fL (7.4-10.4) Neutrophils (%) (Auto) 90.1 % Lymphocytes (%) (Auto) 7.2 % Monocytes (%) (Auto) 1.5 % Eosinophils (%) (Auto) 0.0 % Basophils (%) (Auto) 0.0 % Neutrophils # (Auto) 9.44 K/uL (1.4-6.5) Lymphocytes # (Auto) 0.75 K/uL (1.2-3.4) Monocytes # (Auto) 0.16 K/uL (0.11-0.59) Eosinophils # (Auto) 0.00 K/uL (0-0.5) Basophils # (Auto) 0.00 K/uL (0-0.2) RDW Standard Deviation 46.0 fL (36.4-46.3) RDW Coefficient of Variation 13.8 % (11.5-14.5) Immature Granulocyte % (Auto) 1.2 % Immature Granulocyte # (Auto) 0.13 K/uL (0.00-0.02) Assessment and Plan Mr. Levi Brown is a 82yo M with a PMHx of cataract surgery, hemorrhoids, and chronic sinusitis admitted for severe thrombocytopenia (plt = 0) and 2-3 weeks of easy bruising with one episode of blood/clots in his bowel movement. No signs of active bleeding. 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 - Pt now on second course of dexamethasone 40mg x4 days (day #2 of 4). - Add IVIG 1 gram per kilogram x1 dose today per hemeon. Appreciate recs. - No hx of thrombocytopenia, personal or family. No recent heparin exposure. - Anti [id number] positive - Iron studies do not suggest iron deficiency - Other causes of thrombocytopenia are unlikely, low suspicion for myelodysplasia and aplastic anemia given OK leukocyte and erythrocyte counts. Normal coags and Fibinogen/FibDegradation r/o DIC. Heme to review peripheral smear for evidence of microangiopathy, but feel it is also unlikely. - CBC+Diff daily Anemia - Improved throughout admit - Hgb was ~12 two years ago, he is currently 10.3 and has steadily risen from the 9's on admission. 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 Discussed with Dr. Wing and agree with findings and plan as documented in the note. Any exceptions or clarifications are listed here: None Documented By: Ry Dugan no bleeding feeling ok just bored getting IVIG vitals noted nad breathing unlabored no pallor or icterus ITP - decadron, IVIG, follow plt otherwise as above Resident Tracking Resident Involvement: Resident Care Provided Care Provided: Adult Hospital Medicine
[2018-02-05] MEDS: ALFUZosin TAB 10 MG TAB PO SCH (07:38)
[2018-02-05] MEDS: MONTELUKAST SOD 10 MG TAB PO SCH (07:38)
[2018-02-05] MEDS: DEXAMETHASONE 4 MG TAB PO SCH (07:38)
[2018-02-05 07:44] LABS: HEMATOCRIT 30.6 % (42-52); HEMOGLOBIN 10.3 g/dL (14.0-18.0); MEAN CELL VOLUME 92.4 fL (80-100); MEAN CORPUSCULAR HEMOGLOBIN 31.1 pg (25-34); MEAN CORPUSCULAR HGB CONC 33.7 g/dl (32-36); PLATELET COUNT 6 K/uL (130-400); RED CELL DISTRIBUTION WIDTH CV 13.8 % (11.5-14.5); WHITE BLOOD COUNT 10.48 K/uL (4.8-10.8)
[2018-02-05 07:51] LABS: IG# 0.13 K/uL (0.00-0.02); LYMPH % 7.2 %; LYMPH ABS # 0.75 K/uL (1.2-3.4); MONO % 1.5 %; MONO ABS # 0.16 K/uL (0.11-0.59); NEUT % 90.1 %; NEUT ABS # 9.44 K/uL (1.4-6.5)
[2018-02-05] MEDS ORDERED: NURSING VERBAL MED ORDER ONE ×2 (08:45)
--- NOTE | 2018-02-05 08:50 | HEME/ONC PROGRESS NOTE ---
DATE: 02/05/2018 DIAGNOSES: Refractory ITP. SUBJECTIVE: I had the pleasure of visiting with Levi at bedside this morning. Read Dr. Martinez's initial consultation, outlying his course of immune thrombocytopenia. Apparently, last week, received full complement of high-dose dexamethasone, transiently platelets went upward and stalled out between February 03 and falling from 30,000 down to 9000. Today, he measures 6000. Restarted corticosteroids, receive day 1 yesterday. Will incorporate IVIG today. The patient is otherwise feeling well, offers no specific complaints. PHYSICAL EXAMINATION: GENERAL: He is in no acute distress. VITAL SIGNS: Temperature 36.5, pulse 72, respiratory rate 18, blood pressure 133/75. SKIN: Without rash or lesion. HEENT: Oral mucosa without erythema or ulceration. HEART: Regular rate and rhythm. LUNGS: Clear to auscultation. ABDOMEN: Soft, nontender, nondistended. EXTREMITIES: No clubbing, cyanosis or edema. NEUROLOGICAL: Intact. LABORATORY DATA: 10,480, hemoglobin 10.3, platelet count 6000. IMPRESSION: Refractory immune thrombocytopenia. PLAN: Will add IVIG 1 gram per kilogram x1 dose today. Mr. Brown was restarted on oral dexamethasone, today will represent day #2. Continue to follow peripheral blood counts daily. Obviously, if bleeding ensues, would need to be transfused emergently. There have been no external signs of hemorrhage based on today's examination. Will continue to follow him regularly. Thank you for your assistance in the care of this very pleasant gentleman.
[2018-02-06 05:55] LABS: HEMATOCRIT 28.1 % (42-52); HEMOGLOBIN 9.6 g/dL (14.0-18.0); MEAN CELL VOLUME 93.7 fL (80-100); MEAN CORPUSCULAR HGB CONC 34.2 g/dl (32-36); MEAN PLATELET VOLUME 10.4 fL (7.4-10.4); PLATELET COUNT 47 K/uL (130-400); RED CELL DISTRIBUTION WIDTH CV 14.1 % (11.5-14.5); RED CELL DISTRIBUTION WIDTH SD 47.9 fL (36.4-46.3); WHITE BLOOD COUNT 12.01 K/uL (4.8-10.8)
[2018-02-06 06:11] LABS: IG# 0.11 K/uL (0.00-0.02); LYMPH % 9.2 %; LYMPH ABS # 1.11 K/uL (1.2-3.4); MONO % 6.2 %; MONO ABS # 0.75 K/uL (0.11-0.59); NEUT % 83.7 %; NEUT ABS # 10.04 K/uL (1.4-6.5)
[2018-02-06 06:22] LABS: CALCIUM 8.2 mg/dl (8.5-10.1); CREATININE 1.02 mg/dl (0.60-1.40); POTASSIUM 4.1 mmol/L (3.5-5.1)
[2018-02-06 07:27] VITALS: BP 138/75; PULSE 73; TEMP 36.3; O2SAT 98
[2018-02-06] MEDS: ALFUZosin TAB 10 MG TAB PO SCH (08:27)
[2018-02-06] MEDS: DEXAMETHASONE 4 MG TAB PO SCH (08:27)
[2018-02-06] MEDS: MONTELUKAST SOD 10 MG TAB PO SCH (08:28)
--- NOTE | 2018-02-06 08:59 | HEME/ONC PROGRESS NOTE ---
DATE: 02/06/2018 This is a hematology progress note. DIAGNOSIS: Refractory ITP. SUBJECTIVE: Mr. Brown was seen at bedside, enjoying his breakfast. Incorporated IVIG yesterday and his platelets have skyrocketed to 47,000 today. He is on day #3 oral dexamethasone. He reports tolerating a regular diet, moving his bowels and ambulating ad meredith. No external signs of hemorrhage despite multiple senile purpura seen on the dorsum of his forearms bilaterally. Nursing reports no overnight difficulties otherwise. PHYSICAL EXAMINATION: GENERAL: A very pleasant 82-year-old gentleman, conversant, in no acute distress. VITAL SIGNS: Temperature 36.3, pulse 73, respiratory rate 16, blood pressure 138/75. SKIN: Again, senile purpura noted in the dorsum of his forearms bilaterally. HEENT: Oral mucosa without erythema or ulceration. NECK: Supple. HEART: Regular rate and rhythm. LUNGS: Clear to auscultation. ABDOMEN: Soft, nontender, nondistended. EXTREMITIES: No clubbing, cyanosis or edema. NEUROLOGIC: Intact. LABORATORY DATA: WBC count 12,000, hemoglobin 9.6, platelet count 47,000. Sodium 139, potassium 4.1, chloride 106, carbon dioxide 25, BUN 29, creatinine 1.02. IMPRESSION: Refractory immune thrombocytopenic purpura. PLAN: Patient had a very nice response to initial course of IVIG. He should complete 4 days of high-dose dexamethasone nonetheless. From a hematologic standpoint, I see no reason why he cannot be discharged with close hematologic followup. Will advise Dr. Martinez of Mr. Brown's progress and make arrangements for him to be seen in a short order upon discharge. If he is discharged today, please provide request for CBC to be done no later than . Thank you again for assisting us in the care of this very pleasant gentleman.
--- NOTE | 2018-02-06 10:44 | Family Medicine Progress Note ---
Progress Note Date of Service Feb 06, 2018. Subjective Pt evaluation today including: conversation w/ patient Pain: None PO Intake: Good Voiding: no voiding problems Constitutional: No chills, No sweats, No fatigue Eyes: No worsening of vision ENT: No nasal symptoms, No sore throat Respiratory: No cough, No sputum, No wheezing, No shortness of breath, No dyspnea on exertion, No dyspnea at rest, No hemoptysis Cardiovascular: No chest pain, No palpitations Abdomen: No pain, No nausea, No vomiting, No diarrhea, No constipation, No GI bleeding Male : No dysuria, No incontinence Neurologic: No weakness, No numbness/tingling, No vertigo Skin: No new/changing skin lesions Medications Current Inpatient Medications Medications (Trade) Dose Ordered Sig/Giovanny Route Start Time Stop Time Status Last Admin Dose Admin Acetaminophen (Tylenol Tab) 650 mg Q4H PRN PO 01/29/18 23:00 02/28/18 22:59 Magnesium Hydroxide (Milk Of Magnesia Susp) 30 ml Q6H PRN PO 01/29/18 23:00 02/28/18 22:59 Ondansetron HCl (Zofran Inj) 4 mg Q6H PRN IV 01/29/18 23:00 02/28/18 22:59 Alfuzosin HCl (Uroxatral Tab) 10 mg DAILY PO 01/30/18 08:00 03/01/18 08:59 02/06/18 08:27 10 MG Montelukast Sodium (Singulair Tab) 10 mg DAILY PO 01/30/18 08:00 03/01/18 08:59 02/06/18 08:28 10 MG Sodium Chloride ([place] Nasal [place]) 1 sprays PRN PRN NA 01/30/18 20:15 03/01/18 20:14 Dexamethasone (Decadron Tab) 40 mg DAILY PO 02/04/18 15:15 02/08/18 15:14 02/06/18 08:27 40 MG Objective Vital Signs Date Time Temp Pulse Resp B/P (MAP) Pulse Ox O2 Delivery O2 Flow Rate FiO2 02/06/18 09:56 Room Air 02/06/18 07:27 36.3 73 16 138/75 (96) 98 02/06/18 00:30 Room Air 02/05/18 23:06 36.5 76 18 136/74 (94) 97 Room Air 02/05/18 16:04 36.3 85 18 160/81 (107) 97 Room Air 02/05/18 16:00 Room Air 02/05/18 15:48 36.7 90 18 158/80 (106) 98 Room Air 02/05/18 13:50 36.6 92 122/69 (86) 99 Room Air 16 02/05/18 12:56 88 147/77 (100) 02/05/18 12:06 36.3 75 114/68 (83) 98 Room Air 16 02/05/18 11:35 36.4 83 122/66 (84) 97 Room Air Physical Exam General Appearance: WD/WN, no apparent distress Eyes: normal inspection, EOMI, sclerae normal ENT: hearing grossly normal Neck: supple, no adenopathy, no carotid bruits, trachea midline Respiratory/Chest: chest non-tender, lungs clear, normal breath sounds, no respiratory distress, no accessory muscle use Cardiovascular: regular rate, rhythm, + systolic murmur Abdomen: normal bowel sounds, non tender, soft Extremities: normal range of motion, non-tender, + pertinent finding (well healing eccymoses on arms, improved from prior) Neurologic/Psychiatric: no motor/sensory deficits, alert, normal mood/affect, oriented x 3 Skin: normal color, warm/dry, no rash Lymphatic: no adenopathy Laboratory Results 02/06/18 05:37 Red Blood Count 3.00, Mean Corpuscular Volume 93.7, Mean Corpuscular Hemoglobin 32.0, Mean Corpuscular Hemoglobin Concent 34.2, Mean Platelet Volume 10.4, Neutrophils (%) (Auto) 83.7, Lymphocytes (%) (Auto) 9.2, Monocytes (%) (Auto) 6.2, Eosinophils (%) (Auto) 0.0, Basophils (%) (Auto) 0.0, Neutrophils # (Auto) 10.04, Lymphocytes # (Auto) 1.11, Monocytes # (Auto) 0.75, Eosinophils # (Auto) 0.00, Basophils # (Auto) 0.00 02/06/18 05:37 Test 02/06/18 05:37 White Blood Count 12.01 K/uL (4.8-10.8) Red Blood Count 3.00 M/uL (4.7-6.1) Hemoglobin 9.6 g/dL (14.0-18.0) Hematocrit 28.1 % (42-52) Mean Corpuscular Volume 93.7 fL (80-100) Mean Corpuscular Hemoglobin 32.0 pg (25-34) Mean Corpuscular Hemoglobin Concent 34.2 g/dl (32-36) Platelet Count 47 K/uL (130-400) Mean Platelet Volume 10.4 fL (7.4-10.4) Neutrophils (%) (Auto) 83.7 % Lymphocytes (%) (Auto) 9.2 % Monocytes (%) (Auto) 6.2 % Eosinophils (%) (Auto) 0.0 % Basophils (%) (Auto) 0.0 % Neutrophils # (Auto) 10.04 K/uL (1.4-6.5) Lymphocytes # (Auto) 1.11 K/uL (1.2-3.4) Monocytes # (Auto) 0.75 K/uL (0.11-0.59) Eosinophils # (Auto) 0.00 K/uL (0-0.5) Basophils # (Auto) 0.00 K/uL (0-0.2) RDW Standard Deviation 47.9 fL (36.4-46.3) RDW Coefficient of Variation 14.1 % (11.5-14.5) Immature Granulocyte % (Auto) 0.9 % Immature Granulocyte # (Auto) 0.11 K/uL (0.00-0.02) Red Blood Cell Morphology Unremarkable Anion Gap 8.0 mmol/L (3-11) Est Creatinine Clear Calc Drug Dose 60.5 ml/min Estimated GFR () 79.5 Estimated GFR (Non- 68.6 BUN/Creatinine Ratio 28.7 (10-20) Calcium Level 8.2 mg/dl (8.5-10.1) Assessment and Plan Mr. Levi Brown is a 82yo M with a PMHx of cataract surgery, hemorrhoids, and chronic sinusitis admitted for severe thrombocytopenia (plt = 0) and 2-3 weeks of easy bruising with one episode of blood/clots in his bowel movement. No signs of active bleeding. 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 - His plt count has risen to 47 today. - Pt now on second course of dexamethasone 40mg x4 days (day #3 of 4). - s/p IVIG 1 gram per kilogram x1 dose today per [facility]. - Saw [facility]. Easton ([facility]) today. Pt stable and can complete dexa as outpt with close f/u and a repeat plt check by . Appreciate recs. - No hx of thrombocytopenia, personal or family. No recent heparin exposure. - Anti GPIIb-IIIa positive - Iron studies do not suggest iron deficiency - Other causes of thrombocytopenia are unlikely, low suspicion for myelodysplasia and aplastic anemia given OK leukocyte and erythrocyte counts. Normal coags and Fibinogen/FibDegradation r/o DIC. Heme to review peripheral smear for evidence of microangiopathy, but feel it is also unlikely. - CBC+Diff daily Anemia - Improved throughout admit - Hgb was ~12 two years ago, he is currently 9.6 and has steadily risen from the 9's on admission. - With normal iron studies likely reflected blood loss anemia without current active bleeding Urinary Retention - Continue [employer] Alfuzosin Allergies - Continue [employer] Singulair case d/w Dr Wing and Dr Easton. due to outside situations, pt was discharged prior to my being able to physically see him. agree w discharge as above
[2018-02-06] MEDS ORDERED: DXM4 PO (11:30)
--- NOTE | 2018-02-06 11:47 | Discharge Instructions ---
Discharge Instructions Date of Service Feb 06, 2018. 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 Instructions / Follow-Up Instructions / Follow-Up You were admitted to the hospital for thrombocytopenia with a platelet count of zero. You will need to finish one dose of dexamethasone after leaving the hospital. Please fill the prescription given to you at discharge and take 40mg of dexamethasone on Monday02/07/2018. You will need to have followup blood work done this week. Please have this blood work done at any nearby labs by January at the latest and have the results forwarded to both Dr. Pedro Abel (available at [phone])) and the Hematology/Oncology [facility] (available at [phone]). Followup appointments are being made with both your primary care provider and hematology oncology for within the next 2 weeks. You should receive a call to confirm the appointments. If you do not receive a call from Dr. Abel, or need to reschedule, please call their office at [phone]. If you do not receive a call from [facility]ematology/Oncology, or need to reschedule, please call them at [phone]. Alieve may have been related to your decreased platelet counts. Please STOP taking Alieve when you return home. Your primary care doctor and/or supervisor finishing department may discuss if it is safe for you to try taking Alieve again in the future. If you develop any signs of bleeding, including nosebleeds, bloody bowel movements, bruising, rash, or black bowel movements, please call the Hematology/ Oncology office at [phone] or call [phone] and go to the emergency department if you are concerned. If you develop chest pain, difficulty breathing, shortness of breath, lightheadedness, dizziness, or confusion please call your primary care provider at [phone] or call [phone] and go to the emergency department if you are concerned. Please DO NOT drive yourself to the emergency department. Current Hospital Diet Patient's current hospital diet: Regular Diet Discharge Diet Recommended Diet: Regular Diet Procedures Procedures Performed: CT SCAN OF THE ABDOMEN AND PELVIS WITHOUT CONTRAST CLINICAL HISTORY: Lower abdominal pain COMPARISON STUDY: No previous studies for comparison. TECHNIQUE: CT scan of the abdomen and pelvis was performed from the lung bases to the proximal femurs. Images are reviewed in the axial, sagittal, and coronal planes. IV contrast was not administered for this examination. CT DOSE: 347.00 mGy.cm FINDINGS: Lower chest: There is underlying interstitial lung disease with subpleural reticulation and traction bronchiectasis. There are calcified pleural plaques. Liver: There is a 5 mm hypodensity within the right hepatic lobe. No additional hepatic lesions are evident. Gallbladder: Unremarkable. Spleen: Normal in size and attenuation. Pancreas: Unremarkable. Adrenal glands: Unremarkable. Kidneys: No renal, ureteral, or bladder calculi are visualized. Bowel: There are mildly dilated small bowel loops containing air-fluid levels. There is a right inguinal hernia containing a mildly dilated small bowel loop which appears thickened with adjacent stranding. This may reflect a strangulated hernia. Surgical consultation is recommended. There is colonic diverticulosis. There is no evidence of acute diverticulitis. There is no evidence of acute appendicitis. Peritoneum: There is no intraperitoneal free air or abdominal ascites. Vasculature: The abdominal aorta is normal in course and caliber. Adenopathy: None. 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 Skeletal structures: There is bilateral L5 spondylolysis. There is a grade 2/4 spondylolisthesis of L5 on S1. IMPRESSION: Small bowel obstruction secondary to an incarcerated/strangulated right inguinal hernia. Surgical consultation is recommended. Electronically signed by: Luis E Lugo M.D. 12/09/2016 6:38 AM Dictated Date/Time: 12/09/2016 6:[address] WITHOUT CONTRAST CT DOSE: 307.93 mGy.cm HISTORY: Asbestos exposure R91.1 Lung nodule History of asbestos [id number] TECHNIQUE: Multiaxial CT images of the chest were performed without contrast. COMPARISON: None. FINDINGS: Emphysematous change. Chronic fibrotic change throughout the right basilar regions as well as mid to upper lung regions bilaterally. No evidence for significant nodular pathology. Calcified pleural plaques over the left diaphragmatic region. IMPRESSION: 1. Emphysematous change with evidence for interstitial and fibrotic change throughout both hemithoraces. 2. The bulk of these findings are most likely chronic although prior studies are not directly available for comparison. 3. Calcified pleural plaques overlying the left diaphragm Electronically signed by: Efrem Machuca M.D. 12/07/2016 10:13 AM Pending Studies Studies pending at discharge: no Laboratory Results Lipid Panel Test 01/29/18 14:43 Range/Units Triglycerides Level 113 0-150 mg/dl Cholesterol Level 172 0-200 mg/dl HDL Cholesterol 50 mg/dl Cholesterol/HDL Ratio 3.4 LDL Cholesterol, Calculated 99 mg/dl Medical Emergencies . Who to Call and When: Medical Emergencies: If at any time you feel your situation is an emergency, please call 911 immediately. . Non-Emergent Contact Non-Emergency issues call your: Primary Care Provider Contact Number: [phone] . Past History Medical & Surgical History: (1) Immune thrombocytopenia . "Provider Documentation" section prepared by Bill Wing. .
[2018-02-06 12:58] VITALS: BP 138/75; PULSE 73; TEMP 36.3; O2SAT 98
--- NOTE | 2018-02-06 18:05 | Discharge Summary ---
Discharge Summary Date of Service Feb 06, 2018. Discharge Summary Admission Date: Jan 29, 2018 at 23:09 Discharge Date: Feb 06, 2018 Discharge Disposition: Home Principal Diagnosis: Immune Thrombocytopenia Consultations: Hemo/Onc Discharge Exam Review of Systems: Constitutional: No fever, No chills, No sweats, No weight loss, No weakness , No fatigue Eyes: No worsening of vision ENT: No unusual epistaxis, No sore throat Respiratory: No cough, No sputum, No wheezing, No shortness of breath, No dyspnea on exertion, No dyspnea at rest, No hemoptysis Cardiovascular: No chest pain, No edema Abdomen: No pain, No nausea, No vomiting, No diarrhea, No constipation, No GI bleeding Musculoskeletal: No muscle pain, No swelling Genitourinary - Male: No hematuria, No dysuria Neurologic: No numbness/tingling, No vertigo, No balance problems Endocrine: No fatigue Hematologic / Lymphatic: No abnormal bleeding/bruising, No clotting problems Integumentary: No rash, No new/changing skin lesions Physical Exam: General Appearance: WD/WN, no apparent distress Eyes: PERRL, EOMI, sclerae normal ENT: hearing grossly normal Neck: supple, no adenopathy, no carotid bruits, trachea midline Respiratory/Chest: chest non-tender, lungs clear, normal breath sounds, no respiratory distress, no accessory muscle use Cardiovascular: regular rate, rhythm, + systolic murmur Abdomen / GI: normal bowel sounds, non tender, soft, no organomegaly, no pulsatile mass Extremities: + pertinent finding (Well healing ecchymoses on arms bilaterally. Some slight bruising on R antecubital fossa, healing. No signs of new/worsening bleeding.) Neurologic/Psychiatric: no motor/sensory deficits, alert, normal mood/affect , oriented x 3 Skin: normal color, warm/dry, no rash Lymphatic: no adenopathy Hospital Course Mr. Levi Brown is an 82 year old male with a PMHx of prostate cancer, Lyme disease, cataracts, hemorrhoids, and sinusitis who presented to the ED at recommendation of his PCP Dr. Abel after his most recent outpatient CBC showed a platelet count of 0. He reported that he has had easy bruising of his arms for 3-4 weeks and a BM with blood and clots the week prior to admission, but had no signs of acute bleeding on admit. Hemoonc was consulted. His presentation was most consistent with classic ITP with unclear tiggering agent, possibly related to a recent dose increase of Aleive. He completed a course of dexamethasone 40mg for 4 days and his platelets began to rise after 36 hours of treatment. He had no signs of signs of active bleeding and his hemoglobin remained stable ~9-10g/dL, he did not require any transfusions during his hospital stay. His platelet counts derrick to 30k, but then decreased 9k the day after completing steroids. His [id number] antibodies drawn on admit came back positive, reinforcing the diagnosis of ITP. He began a second course of dexamethasone 40mg x4 days and also received 1g/kg IVIG protocol. His platelets increased to 47k by the next day. Hematology saw him and felt he was doing clinically well and was safe for completion of his last dose of dexamethasone as outpatient with close followup to his PCP and Hemeonc and a CBC within 48 hours. Ecchymoses present on his arm on admission were well healing and improved and there were no new areas of concern. He appeared well and was discharged in good health. Total Time Spent: Greater than 30 minutes This includes examination of the patient, discharge planning, medication reconciliation, and communication with other providers. Discharge Instructions Please refer to the electronic Patient Visit Report (Discharge Instructions) for additional information. Follow-Up Dr. Pedro Abel (available at [phone])) Hematology/Oncology [facility] (available at [phone]) Additional Copies To Paramjit Martinez MD; Pedro Abel M.D.
== END 2018-02-06 13:34 | disposition home or self-care (01) | DRG 813 ==
LOC: C.EDB 21:30 → C.4E 23:09 → ENRESERV 23:45
PROVIDERS: ADMIT Student in an Organized Health Care Education/Training Program; ATTEND Family Medicine
DX: D69.3 Immune thrombocytopenic purpura (principal); K90.0 Celiac disease; Z85.46 Personal history of malignant neoplasm of prostate; Z87.891 Personal history of nicotine dependence; R33.9 Retention of urine, unspecified

== ENCOUNTER → 2018-01-29 | Outpatient (CLI) | payer OTHER ==
[~2018-01-29] MED LIST changes: +DXM4 PO; +MULT1CAP53 PO
[2018-01-29 17:43] LABS: ALBUMIN 3.8 gm/dl (3.4-5.0); ALKALINE PHOSPHATASE 46 U/L (45-117); ALT/SGPT 23 U/L (12-78); AST/SGOT 23 U/L (15-37); BLOOD UREA NITROGEN 21 mg/dl (7-18); CALCIUM 8.8 mg/dl (8.5-10.1); CARBON DIOXIDE 27 mmol/L (21-32); CHOLESTEROL 172 mg/dl (0-200); CREATININE 0.93 mg/dl (0.60-1.40); GLUCOSE 102 mg/dl (70-99); LDL CHOLESTEROL CALCULATED 99 mg/dl; POTASSIUM 4.4 mmol/L (3.5-5.1); SODIUM 139 mmol/L (136-145); TOTAL PROTEIN 7.1 gm/dl (6.4-8.2)
[2018-01-29 21:03] LABS: HEMATOCRIT 28.5 % (42-52); HEMOGLOBIN 9.8 g/dL (14.0-18.0); MEAN CORPUSCULAR HEMOGLOBIN 32.7 pg (25-34); MEAN CORPUSCULAR HGB CONC 34.4 g/dl (32-36); PLATELET COUNT 0 K/uL (130-400); RED CELL DISTRIBUTION WIDTH CV 14.2 % (11.5-14.5); RED CELL DISTRIBUTION WIDTH SD 48.8 fL (36.4-46.3); WHITE BLOOD COUNT 5.95 K/uL (4.8-10.8)
[2018-01-29 21:11] LABS: BASO % 0.3 %; BASO ABS # 0.02 K/uL (0-0.2); EOS ABS # 0.18 K/uL (0-0.5); IG# 0.03 K/uL (0.00-0.02); LYMPH % 17.8 %; LYMPH ABS # 1.06 K/uL (1.2-3.4); MONO % 9.9 %; MONO ABS # 0.59 K/uL (0.11-0.59); NEUT % 68.5 %; NEUT ABS # 4.07 K/uL (1.4-6.5)
== END | disposition home or self-care (01) ==
LOC: C.LABBFT 14:32
PROVIDERS: ATTEND Internal Medicine
DX: E78.5 Hyperlipidemia, unspecified (principal)

== ENCOUNTER 2019-11-04 09:29 | Inpatient (IN) ==
--- NOTE | 2019-11-04 09:55 | Emergency Department Note ---
Impression & Plan Acute GI bleeding, Immune thrombocytopenia, Thrombocytopenia, Anemia ED Provider Note NAME: RIZWAN BLACKWELL JR AGE: 84 SEX: M : 1935 ARRIVES VIA: Walk-In INFORMANT: Patient ED PROVIDER(S): Ry Schaefer DO CHIEF COMPLAINT: Bleeding per rectum HPI: Patient is an 84-year-old male that reports that he has been having rectal bleeding which started 4 days ago. He notes is been gradually getting worse over this time. 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 Initially everything started with dark black stools but now this h as turned to bright red blood per rectum. He admits to passing some clots. He denies taking any blood thinners. No other exacerbating or remitting factors. No chest pain or shortness of breath. No dysuria urgency or frequency. ROS: See above HPI for pertinent positives & negatives. A total of 10 systems reviewed and were otherwise negative. PAST MEDICAL HISTORY:See Below PAST SURGICAL HISTORY:See Below FAMILY HISTORY:See Below SOCIAL HISTORY:See Below HOME MEDICATIONS:See Below ALLERGIES:See Below VITALS:See Below PHYSICAL EXAMINATION: GENERAL: Sitting up in bed, alert, well appearing, well nourished, no distress, non-toxic EYE EXAM: normal conjunctiva. OROPHARYNX: no exudate, no erythema, lips, buccal mucosa, and tongue normal and mucous membranes are moist NECK: supple, no nuchal rigidity, no adenopathy, non-tender LUNGS: Clear to auscultation. Normal chest wall mechanics HEART: no murmurs, S1 normal and S2 normal ABDOMEN: abdomen soft, non-tender, normo-active bowel sounds, no masses, no rebound or guarding. RECTAL: Dark blood dried on rectum BACK: Back is symmetrical on inspection and there is no deformity, no midline tenderness, no CVA tenderness. SKIN: no rashes and no bruising UPPER EXTREMITIES: upper extremities are grossly normal. LOWER EXTREMITIES: No pitting edema. NEURO EXAM: Normal sensorium, cranial nerves II-XII grossly intact, normal speech, no gross weakness of arms, no gross weakness of legs. MEDICAL DECISION MAKING: Patient is a 4-year-old male with a past medical history of ITP who follows with Dr. Kamara who presents to the ER for dark tarry stools. Rectal bleeding started 4 days ago. Patient is now having bright red blood per rectum. He denies any other complaints including abdominal pain. Rectal shows a large amount of dark blood. No hemorrhoids externally. IV was established blood work was obtained. Labs show leukocytosis of 12,000. Mild anemia 11.6 which is actually improved. Significant thrombocytopenia 5000. INR was unremarkable. BMP with slightly elevated BUN consistent with a GI bleed. LFTs bili was unremarkable. Troponin was negative. Discussed with Dr. Kamara from hematology oncology. They recommended IVIG. This was ordered. Recommended holding on platelets. Discussed with the hospitalist and they admit patient for further work-up. Triage Nursing notes reviewed. Prior medical records reviewed Vital Signs: reviewed and remarkable for hypertension Differential diagnosis: Differential diagnosis includes etiologies such as diverticulitis, diverticulosis, AVM, coagulopathy, colitis, inflammatory bowel disease, malignancy, Dixie-Wang tear, esophagitis, peptic ulcer disease, variceal bleed, gastritis, epistaxis, fissure, hemorrhoids, as well as others were entertained. ER treatment provided: See below Diagnostics interpreted by me: ECG: Sinus rhythm rate at 86 Normal axis No PVCs Incomplete right bundle Normal QTC Cardiac Monitoring: An order was placed for continuous cardiac monitoring. The monitor shows a rate of 78 with sinus rhythm. Laboratory studies: As stated above and show below. Imaging studies: See below Consultation(s): Discussed with Dr. Khan who recommended IVIG. Discussed with not any hospitalist for admission. Dr. 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, clinical stage T2 [id number] Status post biopsies, [place] grade 3+3, biopsy stage [id number] Status post seed implant for cesium 131 on 01/08/2008 received 8500 cGy Status post completion of radiation therapy with IMRT/IGRT completed 04/11/2008 received 4500 cGy" Recurrent inguinal hernia of right side with obstruction Thrombocytopenia (Acute) Surgical History H/O splenectomy Hx of tonsillectomy S/P inguinal hernia repair Right IHR with small bowel resection 06/2016 Family History (Updated 11/04/19 @ 12:39 by Emiliano Qureshi) Father Myocardial infarction Mother , age 82 - cause uncertain No problems noted. Denies family history of Prostate cancer Social History (Updated 11/04/19 @ 12:40 by Emiliano Qureshi) Preferred Language: Vietnamese Communication Ability: Effective Visual Impairment: No Limitations Hearing Ability: Use of Hearing Aid Manager Lighting Required: No Beliefs That Will Affect Care: None marital status: Current Living Situation: Spouse Current Living Situation Comment: lives in [place]; has been twice; multiple kids current occupational status: retired current occupation: [employer] work for [employer] Other Information That Helps Us Care for You: No Feels Safe at Home: Yes Safety Concerns: Feels Safe At This Time Smoking Status: Former smoker Age Started Using Tobacco: 19 ; Age Quit Using Tobacco: 46 ; packs per day: 0.5 ; Cigarettes Per Day: 10 ; Smoking End Date: 37 years ago ; Number of Years Since Quit: 37 ; Hx Alcohol Use: Yes Alcohol type: wine Alcohol type Comment: 3-6oz/day Alcohol Intake Frequency: Daily Hx Substance Use: No Dental Care, Regularly: Yes Seatbelt Use: always Sunscreen Use: Yes Allergies Allergies Allergy/AdvReac Type Severity Reaction Status Date / Time gluten Allergy Intermediate rash Verified 11/04/19 10:22 Home Meds Home Medications Medication Instructions Recorded Confirmed calcium carbonate 600 mg (1,500 2 tab PO QAM #0 01/23/19 11/04/19 mg)-vitamin D3 200 unit tablet peg 400-propylene glycol 0.4 %-0.3 1 drp OPHTHALMIC (EYE) BID #0 01/23/19 11/04/19 % eye drops psyllium husk-calcium 1 gram-60 mg 2 cap PO HS #0 ml 01/23/19 11/04/19 capsule leuprolide (6 month) 45 mg 45 mg IM Q6MO ea 06/04/19 11/04/19 intramuscular syringe kit vitamins A,C,Q-ugra-ipmtxi 7,160 2 tab PO BID 06/04/19 11/04/19 unit-113 mg-100 unit tablet Metanx Methylfolate 10 mg PO DAILY 07/25/19 11/04/19 glucosamine sulfate 2KCl 500 mg 500 mg PO DAILY cap 07/25/19 11/04/19 capsule Previous Rx's Medication Instructions Recorded bicalutamide 50 mg tablet 50 mg PO DAILY #90 tab 04/09/19 alfuzosin 10 mg tablet,extended 10 mg PO DAILY #90 tab 05/03/19 release 24 hr Results & Data (ED) Vital Signs Vital Signs - 24 hr 11/04/19 09:40 11/04/19 10:10 11/04/19 10:11 Temperature 36.8 C Temperature Source Oral Pulse Rate 84 83 77 Pulse Rate [Left] Pulse Rate from SpO2 Sensor 82 72 Respiratory Rate 20 24 18 Respiratory Effort / Characteristics Respiratory Depth Blood Pressure 162/79 H 155/96 H Blood Pressure [Left Arm] Blood Pressure Mean 106 114 Blood Pressure Mean [Left Arm] Pulse Oximetry 95 96 96 Oxygen Delivery Method Room Air Sepsis Recent Fever Within 48 Hours No Sepsis New/Unexplained Change in Mental Status No Sepsis Action Taken by Nursing No Action Required 11/04/19 10:30 11/04/19 10:31 11/04/19 11:00 Temperature Temperature Source Pulse Rate 80 80 75 Pulse Rate [Left] Pulse Rate from SpO2 Sensor 79 80 75 Respiratory Rate 17 17 16 Respiratory Effort / Characteristics Respiratory Depth Blood Pressure 148/81 H 156/81 H Blood Pressure [Left Arm] Blood Pressure Mean 114 115 Blood Pressure Mean [Left Arm] Pulse Oximetry 95 97 94 Oxygen Delivery Method Sepsis Recent Fever Within 48 Hours Sepsis New/Unexplained Change in Mental Status Sepsis Action Taken by Nursing 11/04/19 11:32 11/04/19 11:45 11/04/19 11:47 Temperature 36.6 C Temperature Source Oral Pulse Rate 87 79 Pulse Rate [Left] 78 Pulse Rate from SpO2 Sensor 87 78 Respiratory Rate 25 H 29 H 22 Respiratory Effort / Characteristics Non-Labored Respiratory Depth Normal Blood Pressure 155/90 H 172/90 H Blood Pressure [Left Arm] 172/90 H Blood Pressure Mean 122 116 Blood Pressure Mean [Left Arm] 117 Pulse Oximetry 97 97 96 Oxygen Delivery Method Room Air Sepsis Recent Fever Within 48 Hours Sepsis New/Unexplained Change in Mental Status Sepsis Action Taken by Nursing 11/04/19 12:00 11/04/19 12:26 11/04/19 12:31 Temperature 36.7 C Temperature Source Oral Pulse Rate 77 81 Pulse Rate [Left] Pulse Rate from SpO2 Sensor 77 82 Respiratory Rate 19 20 Respiratory Effort / Characteristics Respiratory Depth Blood Pressure 157/87 H 175/80 H Blood Pressure [Left Arm] Blood Pressure Mean 107 124 Blood Pressure Mean [Left Arm] Pulse Oximetry 93 96 Oxygen Delivery Method Sepsis Recent Fever Within 48 Hours Sepsis New/Unexplained Change in Mental Status Sepsis Action Taken by Nursing 11/04/19 12:55 11/04/19 13:03 11/04/19 13:31 Temperature 36.7 C Temperature Source Oral Pulse Rate 91 H 88 Pulse Rate [Left] Pulse Rate from SpO2 Sensor 90 87 Respiratory Rate 16 16 Respiratory Effort / Characteristics Respiratory Depth Blood Pressure 189/98 H 153/83 H Blood Pressure [Left Arm] Blood Pressure Mean 142 102 Blood Pressure Mean [Left Arm] Pulse Oximetry 95 98 Oxygen Delivery Method Sepsis Recent Fever Within 48 Hours Sepsis New/Unexplained Change in Mental Status Sepsis Action Taken by Nursing 11/04/19 13:36 11/04/19 13:37 11/04/19 14:01 Temperature 36.8 C Temperature Source Oral Pulse Rate 90 96 H Pulse Rate [Left] 102 H Pulse Rate from SpO2 Sensor 89 95 H Respiratory Rate 20 20 20 Respiratory Effort / Characteristics Non-Labored Respiratory Depth Normal Blood Pressure 176/96 H 147/87 H Blood Pressure [Left Arm] 176/96 H Blood Pressure Mean 130 119 Blood Pressure Mean [Left Arm] 122 Pulse Oximetry 96 98 96 Oxygen Delivery Method Room Air Sepsis Recent Fever Within 48 Hours Sepsis New/Unexplained Change in Mental Status Sepsis Action Taken by Nursing 11/04/19 14:28 11/04/19 14:30 11/04/19 15:00 Temperature 36.9 C Temperature Source Oral Pulse Rate 93 H 97 H Pulse Rate [Left] Pulse Rate from SpO2 Sensor 92 H 99 H Respiratory Rate 17 15 Respiratory Effort / Characteristics Respiratory Depth Blood Pressure 139/66 151/80 H Blood Pressure [Left Arm] Blood Pressure Mean 99 117 Blood Pressure Mean [Left Arm] Pulse Oximetry 94 95 Oxygen Delivery Method Sepsis Recent Fever Within 48 Hours Sepsis New/Unexplained Change in Mental Status Sepsis Action Taken by Nursing 11/04/19 15:02 Temperature 36.9 C Temperature Source Oral Pulse Rate Pulse Rate [Left] Pulse Rate from SpO2 Sensor Respiratory Rate Respiratory Effort / Characteristics Respiratory Depth Blood Pressure Blood Pressure [Left Arm] Blood Pressure Mean Blood Pressure Mean [Left Arm] Pulse Oximetry Oxygen Delivery Method Sepsis Recent Fever Within 48 Hours Sepsis New/Unexplained Change in Mental Status Sepsis Action Taken by Nursing Laboratory Data Result diagrams: 11/04/19 10:07 11/04/19 10:07 Lab Results 11/04/19 11/04/19 11/04/19 Range/Units 10:07 10:07 10:07 WBC 12.37 H (4.8-10.8) K/uL RBC 3.55 L (4.7-6.1) M/uL Hgb 11.6 L (14.0-18.0) g/dL Hct 34.6 L (42-52) % MCV 97.5 (80-100) fL MCH 32.7 (25-34) pg MCHC 33.5 (32-36) g/dL RDW Std Deviation 55.3 H (36.4-46.3) fL RDW Coeff of Karlene 15.5 H (11.5-14.5) % Plt Count 5 L* (130-400) K/uL Immature Gran % (Auto) 0.5 % Neut % (Auto) 69.7 % Lymph % (Auto) 17.9 % Shelby % (Auto) 10.8 % Eos % (Auto) 0.9 % Baso % (Auto) 0.2 % Immature Gran # (Auto) 0.06 H (0.00-0.02) K/uL Neut # (Auto) 8.62 H (1.4-6.5) K/uL Lymph # (Auto) 2.22 (1.2-3.4) K/uL Shelby # (Auto) 1.33 H (0.11-0.59) K/uL Eos # (Auto) 0.11 (0-0.5) K/uL Baso # (Auto) 0.03 (0-0.2) K/uL Absolute Nucleated RBC 0.06 H (0-0) K/uL Nucleated RBC % (auto) 0.5 % Platelet Estimate SIGNIFIC DECREASED (Normal) Lemus-Meyers Bodies 1+ Acanthocytes (Spur) 1+ PT 11.6 (9.0-12.0) Seconds INR 1.1 (0.9-1.1) APTT 23.4 (21.0-31.0) Seconds PTT Ratio 0.8 Sodium (136-145) mmol/L Potassium (3.5-5.1) mmol/L Chloride (98-107) mmol/L Carbon Dioxide (21-32) mmol/L Anion Gap (3-11) BUN (7-18) mg/dl Creatinine (0.6-1.4) mg/dl Est Cr Clr Drug Dosing ml/min Est GFR ( Amer) Est GFR (Non-Af Amer) BUN/Creatinine Ratio (10-20) Glucose (70-99) mg/dl Calcium (8.5-10.1) mg/dl Total Bilirubin (0.2-1) mg/dl AST (15-37) U/L ALT (12-78) U/L Alkaline Phosphatase (45-117) U/L Troponin I (0-0.045) ng/ml Total Protein (6.4-8.2) gm/dl Albumin (3.4-5.0) gm/dl Globulin (2.5-4.0) gm/dl Albumin/Globulin Ratio (0.9-2) Blood Type A Positive Antibody Screen POSITIVE A 11/04/19 Range/Units 10:07 WBC (4.8-10.8) K/uL RBC (4.7-6.1) M/uL Hgb (14.0-18.0) g/dL Hct (42-52) % MCV (80-100) fL MCH (25-34) pg MCHC (32-36) g/dL RDW Std Deviation (36.4-46.3) fL RDW Coeff of Karlene (11.5-14.5) % Plt Count (130-400) K/uL Immature Gran % (Auto) % Neut % (Auto) % Lymph % (Auto) % Shelby % (Auto) % Eos % (Auto) % Baso % (Auto) % Immature Gran # (Auto) (0.00-0.02) K/uL Neut # (Auto) (1.4-6.5) K/uL Lymph # (Auto) (1.2-3.4) K/uL Shelby # (Auto) (0.11-0.59) K/uL Eos # (Auto) (0-0.5) K/uL Baso # (Auto) (0-0.2) K/uL Absolute Nucleated RBC (0-0) K/uL Nucleated RBC % (auto) % Platelet Estimate (Normal) Lemus-Meyers Bodies Acanthocytes (Spur) PT (9.0-12.0) Seconds INR (0.9-1.1) APTT (21.0-31.0) Seconds PTT Ratio Sodium 139 (136-145) mmol/L Potassium 4.1 (3.5-5.1) mmol/L Chloride 105 (98-107) mmol/L Carbon Dioxide 23 (21-32) mmol/L Anion Gap 11.0 (3-11) BUN 19 H (7-18) mg/dl Creatinine 0.96 (0.6-1.4) mg/dl Est Cr Clr Drug Dosing 54.5 ml/min Est GFR ( Amer) 84.4 Est GFR (Non-Af Amer) 72.8 BUN/Creatinine Ratio 19.2 (10-20) Glucose 108 H (70-99) mg/dl Calcium 9.5 (8.5-10.1) mg/dl Total Bilirubin 0.6 (0.2-1) mg/dl AST 41 H (15-37) U/L ALT 24 (12-78) U/L Alkaline Phosphatase 181 H (45-117) U/L Troponin I < 0.015 (0-0.045) ng/ml Total Protein 7.9 (6.4-8.2) gm/dl Albumin 4.0 (3.4-5.0) gm/dl Globulin 3.9 (2.5-4.0) gm/dl Albumin/Globulin Ratio 1.0 (0.9-2) Blood Type Antibody Screen Administered Medications Sodium Chloride (Nss 1000ml) 1,000 mls @ 100 mls/hr IV .Q10H JAZMYNE Stop: 11/04/19 19:59 Last Admin: 11/04/19 10:30 Dose: 100 mls/hr Documented by: [id number] Discontinued Medications Pantoprazole Sodium (Protonix Bolus/Drip) 0 mls @ 1 mls/hr IV ONE STA Stop: 11/04/19 10:03 Last Admin: 11/04/19 10:32 Dose: Not Given Documented by: [id number] Pantoprazole Sodium 40 mg/ (Dextrose) 100 mls @ 20 mls/hr IV Q5H JAZMYNE Stop: 12/04/19 10:16 Last Admin: 11/04/19 10:53 Dose: 8 mg/hr, 20 mls/hr Documented by: [id number] Pantoprazole Sodium 80 mg/ (Dextrose) 120 mls @ 400 mls/hr IV NOW ONE Stop: 11/04/19 10:19 Last Infusion: 11/04/19 10:54 Dose: 0 mls/hr Documented by: [id number] Admin: 11/04/19 10:31 Dose: 400 mls/hr Documented by: [id number] Immune Globulin (Flebogamma 10%) 800 mls @ 0 mls/hr IV 1200,1300,1400,1500 JAZMYNE; Protocol Stop: 11/04/19 15:01 Last Admin: 11/04/19 14:35 Dose: Not Given Documented by: [id number] Admin: 11/04/19 14:34 Dose: Not Given Documented by: [id number] Infusion: 11/04/19 13:42 Dose: 375 mls/hr Documented by: [id number] Infusion: 11/04/19 12:56 Dose: 188 mls/hr Documented by: [id number] Infusion: 11/04/19 12:24 Dose: 94 mls/hr Documented by: [id number] Admin: 11/04/19 11:46 Dose: 47 mls/hr Documented by: [id number] Immune Globulin (Flebogamma 10%) 200 mls @ 0 mls/hr IV Q30M JAZMYNE; Protocol Stop: 11/04/19 15:16 Last Admin: 11/04/19 14:59 Dose: 375 mls/hr Documented by: [id number] Infusion: 11/04/19 14:56 Dose: 375 mls/hr Documented by: [id number] Admin: 11/04/19 14:24 Dose: 375 mls/hr Documented by: [id number] Infusion: 11/04/19 14:24 Dose: 375 mls/hr Documented by: [id number] Admin: 11/04/19 13:52 Dose: 375 mls/hr Documented by: [id number] Immune Globulin (Flebogamma 10%) 200 mls @ 0 mls/hr IV 1200 JAZMYNE; Protocol Stop: 11/04/19 11:47 Last Admin: 11/04/19 11:46 Dose: Not Given Documented by: [id number] Discharge Plan Visit Data Chief Complaint: Rectal Bleed Stated Complaint: RECTAL BLEEDING ED Provider: Ry Schaefer Discharge Problem: Acute GI bleeding, Immune thrombocytopenia, Thrombocytopenia, Anemia Discharge Instructions Interventions: ED Discharge Assessment Last Done: 11/04/19 14:40 Forms Stand Alone Forms: My [facility] Prescriptions Prescriptions: No Action Metamucil Plus Calcium 1-60 gram-mg capsule 2 cap PO HS Qty: 0 RF: 0 Systane Ultra 0.4-0.3 % drops 1 drp OPHTHALMIC (EYE) BID Qty: 0 RF: 0 calcium carbonate-vitamin D3 [Calcium 600 + D(3)] 600 mg(1,500mg) -200 unit tablet 2 tab PO QAM Qty: 0 RF: 0 alfuzosin 10 mg tablet extended release 24 hr 10 mg PO DAILY Qty: 90 RF: 4 leuprolide (6 month) 45 mg syringe kit 45 mg IM Q6MO RF: 0 PreserVision AREDS 7,160-113-100 hlvn-vb-[id number] tablet 2 tab PO BID RF: 0 bicalutamide 50 mg tablet 50 mg PO DAILY Qty: 90 RF: 3 glucosamine sulfate 2KCl 500 mg capsule 500 mg PO DAILY RF: 0 Metanx Methylfolate 10 mg tablet 10 mg PO DAILY RF: 0 Referrals Referrals: Pedro Abel III, MD [Primary Care Provider] - Discharge Problem: Anemia Qualifiers: Anemia type: unspecified type Qualified Code(s): D64.9 - Anemia, unspecified
[2019-11-04] MEDS ORDERED: SODIUM CHLORIDE 0.9% 1000ML 1,000 ML IV SCH (10:00)
[2019-11-04] MEDS ORDERED: PANTOprazole 80 MG in DEXTROSE 5% 100 ML IV ONE (10:02)
[2019-11-04] MEDS ORDERED: PANTOPRAZOLE BOLUS/DRIP 1 EA IV STA (10:02)
[2019-11-04] MEDS ORDERED: PANTOprazole 40 MG in DEXTROSE 5% 100 ML IV SCH (10:17)
[2019-11-04 10:39] LABS: Alanine Aminotransferase 24 U/L (12-78); Aspartate Aminotransferase 41 U/L (15-37); BUN Creatinine Ratio 19.2 (10-20); Blood Urea Nitrogen 19 mg/dl (7-18); Calcium 9.5 mg/dl (8.5-10.1); Carbon Dioxide 23 mmol/L (21-32); Chloride 105 mmol/L (98-107); Creatinine Clr Calc Pharmacy 54.5 ml/min; Est GFR (African American) 84.4; Est GFR (Non-African American) 72.8; Glucose 108 mg/dl (70-99); Potassium 4.1 mmol/L (3.5-5.1); Sodium 139 mmol/L (136-145)
[2019-11-04 10:41] LABS: Hematocrit (blood only) 34.6 % (42-52); Hemoglobin 11.6 g/dL (14.0-18.0); INR 1.1 (0.9-1.1); Mean Corpuscular Hemoglobin 32.7 pg (25-34); Mean Corpuscular Hgb Conc 33.5 g/dL (32-36); Mean Corpuscular Volume 97.5 fL (80-100); Nucleated RBC # (auto) 0.06 K/uL (0-0); Nucleated RBC % (auto) 0.5 %; Partial Thromboplastin Ratio 0.8; Partial Thromboplastin Time 23.4 Seconds (21.0-31.0); Platelet Count 5 K/uL (130-400); Prothrombin Time 11.6 Seconds (9.0-12.0); RDW Coefficient of Variation 15.5 % (11.5-14.5); RDW Standard Deviation 55.3 fL (36.4-46.3); Red Blood Count 3.55 M/uL (4.7-6.1); White Blood Count 12.37 K/uL (4.8-10.8)
[2019-11-04 10:42] LABS: Acanthocytes 1+; Basophils # (auto) 0.03 K/uL (0-0.2); Basophils % (auto) 0.2 %; Eosinophils # (auto) 0.11 K/uL (0-0.5); Eosinophils % (auto) 0.9 %; Howell-Jolly Bodies 1+; Immature Granulocytes # (auto) 0.06 K/uL (0.00-0.02); Immature Granulocytes % (auto) 0.5 %; Lymphocytes # (auto) 2.22 K/uL (1.2-3.4); Lymphocytes % (auto) 17.9 %; Monocytes # (auto) 1.33 K/uL (0.11-0.59); Monocytes % (auto) 10.8 %; Neutrophils # (auto) 8.62 K/uL (1.4-6.5); Neutrophils % (auto) 69.7 %; Platelet Estimate SIGNIFIC DECREASED (Normal)
[2019-11-04 10:44] LABS: Alkaline Phosphatase 181 U/L (45-117); Bilirubin,Total 0.6 mg/dl (0.2-1); Globulin 3.9 gm/dl (2.5-4.0); Total Protein 7.9 gm/dl (6.4-8.2); Troponin I < 0.015 ng/ml (0-0.045)
[2019-11-04] MEDS: IMMUNE GLOBULIN 10% IV SCH ×3 (11:46→14:35)
[2019-11-04] MEDS ORDERED: IMMUNE GLOBULIN(HUMAN) 10% 200 ML IV SCH (11:46)
--- NOTE | 2019-11-04 12:40 | History & Physical Report ---
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 Likely the holding of the patient's last 2 doses of Romiplostim led to his precipitous drop in platelets. I cannot exclude other factors at this time contributing (viral suppression, etc) but much less likely. Plan - * IVIG 1gm/kg now * repeat CBC tonight then again in am * defer additional agents (steroids, etc) to Dr Easton (2) Rectal bleeding: CT abd/pelvis in 2018 showed diverticular disease. Diverticulosis vs internal hemorrhoids vs colonic AVM vs cancer vs other factors could be causing BRBPR in the setting of his severe thrombocytopenia. Last colonoscopy was about 10 years ago. NPO. IVF. Place on PPI twice daily but doubt this is upper GI in origin (HR, BP wnl), BUN wnl, etc. I placed a consult to [facility] to follow. Type/cross 2 units PRBCs just in case. Serial CBCs. (3) Aortic stenosis, moderate: Noted. There is associated AVMs with . See above. No symptoms from his at this time. (4) Prostate hyperplasia with urinary obstruction: Cont alpha linsey - BP is acceptable to allow its use. Would need to hold if any hypotension. (5) Celiac disease: When eating again gluten-free diet. (6) Epistaxis: 2nd to ITP. bactroban to nares BID. frequent saline spray prn. Treat ITP. (7) Interstitial lung disease: As seen on prior imaging. O2 sats wnl. No symptoms. (8) DVT prophylaxis: SCDs. Chemical means contraindicated given his severe thrombocytopenia. updated pt's at 1745 on 11/04/19 History of Present Illness Chief Complaint: rectal bleeding Primary Care Provider: Pedro Abel MD 84yo male with history of ITP who presents with 4 days of rectal bleeding. At times it is BRBPR and other times it is maroon-colored, especially when the blood is mixed with stool. He has had several months of fecal urgency. Has h/o prostate cancer in 2007 - treated with external beam radiation and radioactive seeds and later lupron. No abdominal pain. Appetite has been normal. No fevers or chills. 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 He is currently on Romiplostim subcutaneous but his most recent 2 injections were held because of thrombocytosis. Last colonoscopy - 10+ years - no polyps or other pathology to his recollection. Allergies Allergy/AdvReac Type Severity Reaction Status Date / Time gluten Allergy Intermediate rash Verified 11/04/19 10:22 Home Medications Home Medications Medication Instructions Recorded Confirmed Type calcium carbonate 600 mg (1,500 2 tab PO QAM #0 01/23/19 11/04/19 History mg)-vitamin D3 200 unit tablet peg 400-propylene glycol 0.4 %-0.3 1 drp OPHTHALMIC (EYE) BID #0 01/23/19 11/04/19 History % eye drops psyllium husk-calcium 1 gram-60 mg 2 cap PO HS #0 ml 01/23/19 11/04/19 History capsule bicalutamide 50 mg tablet 50 mg PO DAILY #90 tab 04/09/19 11/04/19 Rx alfuzosin 10 mg tablet,extended 10 mg PO DAILY #90 tab 05/03/19 11/04/19 Rx release 24 hr leuprolide (6 month) 45 mg 45 mg IM Q6MO ea 06/04/19 11/04/19 History intramuscular syringe kit vitamins A,C,W-nbpp-euilzv 7,160 2 tab PO BID 06/04/19 11/04/19 History unit-113 mg-100 unit tablet Metanx Methylfolate 10 mg PO DAILY 07/25/19 11/04/19 History glucosamine sulfate 2KCl 500 mg 500 mg PO DAILY cap 07/25/19 11/04/19 History capsule Past Med/Surg History Medical History (Updated 11/04/19 @ 15:38 by Ry Schaefer DO) Anemia (Chronic) Celiac disease Celiac disease GERD (gastroesophageal reflux disease) Hemorrhoids Hx of Lyme disease Immune thrombocytopenia (Chronic) Interstitial lung disease per chest CT 02/15/2018 Prostate cancer (Chronic 2007) "Adenocarcinoma the prostate presenting PSA 1.0, clinical stage T2 [id number] Status post biopsies, [place] grade 3+3, biopsy stage [id number] Status post seed implant for cesium 131 on 01/08/2008 received 8500 cGy Status post completion of radiation therapy with IMRT/IGRT completed 04/11/2008 received 4500 cGy" Recurrent inguinal hernia of right side with obstruction Thrombocytopenia (Acute) Surgical History H/O splenectomy Hx of tonsillectomy S/P inguinal hernia repair Right IHR with small bowel resection 06/2016 Family History (Updated 11/04/19 @ 12:39 by Emiliano Qureshi) Father Myocardial infarction Mother , age 82 - cause uncertain No problems noted. Denies family history of Prostate cancer Social History (Updated 11/04/19 @ 12:40 by Emiliano Qureshi) Preferred Language: Montenegrin Communication Ability: Effective Visual Impairment: No Limitations Hearing Ability: Use of Hearing Aid Die Tripper Required: No Beliefs That Will Affect Care: None marital status: Current Living Situation: Spouse Current Living Situation Comment: lives in [place]; has been twice; multiple kids current occupational status: retired current occupation: [employer] work for [employer] Other Information That Helps Us Care for You: No Feels Safe at Home: Yes Safety Concerns: Feels Safe At This Time Smoking Status: Former smoker Age Started Using Tobacco: 19 ; Age Quit Using Tobacco: 46 ; packs per day: 0.5 ; Cigarettes Per Day: 10 ; Smoking End Date: 37 years ago ; Number of Years Since Quit: 37 ; Hx Alcohol Use: Yes Alcohol type: wine Alcohol type Comment: 3-6oz/day Alcohol Intake Frequency: Daily Hx Substance Use: No Dental Care, Regularly: Yes Seatbelt Use: always Sunscreen Use: Yes Review of Systems Constitutional: no fever, no chills, no anorexia and no weight loss Eyes: no worsening vision Ear, Nose, Mouth, Throat: + epistaxis; no sore throat and no dysphagia Respiratory: no cough and no dyspnea Cardiovascular: no chest pain Gastrointestinal: + blood in stools; no abdominal pain, no nausea and no vomiting Genitourinary: + difficulty urinating; no dysuria Musculoskeletal: no joint pain Integumentary: no rash Neurologic: no loss of sensation Psychiatric: no depression and no anxiety Endocrine: no diabetic Hematologic / Lymphatic: + easy bruising Physical Exam Constitutional: well developed, well nourished and average body habitus; no acute distress and no altered mental status Eyes: PERRL ENMT: external ear and nose normal, oropharynx normal minimal palatal petichiae Neck: trachea midline, no thyromegaly Respiratory: no respiratory distress Auscultation: + rales (fine, dry - bases); no diminished lung sounds and no wheezes Cardiovascular: Rate/Rhythm: regular rate and regular rhythm Heart Sounds: normal S1, normal S2 and + murmur (2/6 RUSB holosystolic) Vessels: posterior tibial pulses present and dorsalis pedis pulses present; no JVD Extremities: no edema Gastrointestinal (Abdomen): normal bowel sounds, soft, nontender, no hepatosplenomegaly Musculoskeletal: no cyanosis or clubbing, extremities motor strength 5/5 Skin: petechaie on legs Neurologic: deep tendon reflexes 2+ bilaterally and moves all extremities; no focal motor deficits Psychiatric: A+Ox3, euthymic affect Lymphatic: no cervical lymphadenopathy Results & Data Results & Data ([facility]) Vital Signs (Past 12 Hours) Vital Signs Temp Pulse Pulse Resp BP BP Pulse Ox 11/04/19 12:26 36.7 C 11/04/19 12:00 77 19 157/87 H 93 11/04/19 11:47 36.6 C 78 22 172/90 H 96 11/04/19 11:45 79 29 H 172/90 H 97 11/04/19 11:32 87 25 H 155/90 H 97 11/04/19 11:00 75 16 156/81 H 94 11/04/19 10:31 80 17 97 11/04/19 10:30 80 17 148/81 H 95 11/04/19 10:11 77 18 96 11/04/19 10:10 83 24 155/96 H 96 11/04/19 09:40 36.8 C 84 20 162/79 H 95 Laboratory Results Laboratory Results - last 24 hr 11/04/19 11/04/19 11/04/19 10:07 10:07 10:07 WBC 12.37 H RBC 3.55 L Hgb 11.6 L Hct 34.6 L MCV 97.5 MCH 32.7 MCHC 33.5 RDW Std Deviation 55.3 H RDW Coeff of Karlene 15.5 H Plt Count 5 L* Immature Gran % (Auto) 0.5 Neut % (Auto) 69.7 Lymph % (Auto) 17.9 [place] % (Auto) 10.8 Eos % (Auto) 0.9 Baso % (Auto) 0.2 Immature Gran # (Auto) 0.06 H Neut # (Auto) 8.62 H Lymph # (Auto) 2.22 [place] # (Auto) 1.33 H Eos # (Auto) 0.11 Baso # (Auto) 0.03 Absolute Nucleated RBC 0.06 H Nucleated RBC % (auto) 0.5 Platelet Estimate SIGNIFIC DECREASED [place] Bodies 1+ Acanthocytes (Spur) 1+ PT 11.6 INR 1.1 APTT 23.4 PTT Ratio 0.8 Sodium Potassium Chloride Carbon Dioxide Anion Gap BUN Creatinine Est Cr Clr Drug Dosing Est GFR ( Amer) Est GFR (Non-Af Amer) BUN/Creatinine Ratio Glucose Calcium Total Bilirubin AST ALT Alkaline Phosphatase Troponin I Total Protein Albumin Globulin Albumin/Globulin Ratio Blood Type A Positive Antibody Screen POSITIVE A Antibody Identification Pending Antibody ID Referred Antibody ID Comment Pending 11/04/19 11/04/19 10:07 14:07 WBC RBC Hgb Hct MCV MCH MCHC RDW Std Deviation RDW Coeff of Karlene Plt Count Immature Gran % (Auto) Neut % (Auto) Lymph % (Auto) [place] % (Auto) Eos % (Auto) Baso % (Auto) Immature Gran # (Auto) Neut # (Auto) Lymph # (Auto) [place] # (Auto) Eos # (Auto) Baso # (Auto) Absolute Nucleated RBC Nucleated RBC % (auto) Platelet Estimate [place] Bodies Acanthocytes (Spur) PT INR APTT PTT Ratio Sodium 139 Potassium 4.1 Chloride 105 Carbon Dioxide 23 Anion Gap 11.0 BUN 19 H Creatinine 0.96 Est Cr Clr Drug Dosing 54.5 Est GFR ( Amer) 84.4 Est GFR (Non-Af Amer) 72.8 BUN/Creatinine Ratio 19.2 Glucose 108 H Calcium 9.5 Total Bilirubin 0.6 AST 41 H ALT 24 Alkaline Phosphatase 181 H Troponin I < 0.015 Total Protein 7.9 Albumin 4.0 Globulin 3.9 Albumin/Globulin Ratio 1.0 Blood Type Antibody Screen Antibody Identification Antibody ID Referred Pending Antibody ID Comment Diagnostic Findings EKG - my reading - NSR, PVC, RBBB, inferior ST changes Code Status & VTE Plan Code Status DNR VTE Prophylaxis Plan VTE Prophylaxis will be ordered: Yes PG Care Time/CCT Total # of Minutes Spent Total Time Spent with Patient: Total time spent is greater than 50% in coordination of care (as documented) at patient's floor/unit and/or counseling patient: Coding Level of Care Code 22895 Initial Inpt Care Lvl 3 Diagnoses Immune thrombocytopenia D69.3 Rectal bleeding K62.5 Aortic stenosis, moderate I35.0 Prostate hyperplasia with urinary obstruction N40.1; N13.8 Celiac disease K90.0 Epistaxis R04.0 Interstitial lung disease J84.9 DVT prophylaxis Z29.9
[2019-11-04] MEDS: IMMUNE GLOBULIN(HUMAN) 10% 200 ML IV SCH ×3 (13:52→14:59)
[2019-11-04] MEDS ORDERED: ONDANSETRON INJ 2 MG/ML 2 ML VIAL IV PRN (15:53)
[2019-11-04] MEDS ORDERED: SODIUM CHLORIDE 0.65% NA SOLN 45 ML (OCEAN) PRN (15:53)
--- NOTE | 2019-11-04 16:59 | Electrocardiogram Report ---
Test Reason : Blood Pressure : / mmHG Vent. Rate : 086 BPM Atrial Rate : 086 BPM P-R Int : 166 ms QRS Dur : 140 ms QT Int : 396 ms P-R-T Axes : 053 079 021 degrees QTc Int : 473 ms Sinus rhythm with occasional Premature ventricular complexes Possible Left atrial enlargement Right bundle branch block Abnormal ECG When compared with ECG of 20-FEB-2018 08:15, Premature ventricular complexes are now Present Right bundle branch block is now present T wave inversion now evident in Inferior leads T wave amplitude has decreased in Anterior leads Confirmed by Gennaro Trevino ([id number]) on 11/04/2019 4:58:46 PM Referred By: REFERRED SELF Confirmed By:Juanpablo Trevino
[2019-11-04] MEDS: D5NSS + 20MEQ KCL 20 MEQ/1,000 ML BAG IV SCH (17:02)
[2019-11-04] MEDS: MUPIROCIN 2% OINT 22 GM TUBE EXT SCH ×2 (17:03→21:07)
[2019-11-04 20:00] LABS: Mean Corpuscular Hgb Conc 33.1 g/dL (32-36); Nucleated RBC # (auto) 0.14 K/uL (0-0); Platelet Count 12 K/uL (130-400)
[2019-11-04 20:01] LABS: Hematocrit (blood only) 28.4 % (42-52); Hemoglobin 9.4 g/dL (14.0-18.0); Mean Corpuscular Hemoglobin 32.5 pg (25-34); Mean Corpuscular Volume 98.3 fL (80-100); Platelet Estimate SIGNIFIC DECREASED (Normal); RDW Coefficient of Variation 15.7 % (11.5-14.5); RDW Standard Deviation 54.9 fL (36.4-46.3); Red Blood Count 2.89 M/uL (4.7-6.1); White Blood Count 14.22 K/uL (4.8-10.8)
[2019-11-04] MEDS: PANTOprazole 40 MG in SYRINGE 0 ML IV SCH (21:08)
[2019-11-04] MEDS: ARTIFICIAL TEARS OP SCH (21:08)
[2019-11-05] MEDS: D5NSS + 20MEQ KCL 20 MEQ/1,000 ML BAG IV SCH (03:08)
[2019-11-05] MEDS: MUPIROCIN 2% OINT 22 GM TUBE EXT SCH (08:01)
[2019-11-05] MEDS: ARTIFICIAL TEARS OP SCH (08:01)
[2019-11-05] MEDS: PANTOprazole 40 MG in SYRINGE 0 ML IV SCH (08:01)
[2019-11-05 08:08] LABS: BUN Creatinine Ratio 13.2 (10-20); Creatinine Clr Calc Pharmacy 51.3 ml/min; Est GFR (African American) 78.4; Est GFR (Non-African American) 67.7; Potassium 4.1 mmol/L (3.5-5.1)
[2019-11-05 08:17] LABS: Hematocrit (blood only) 31.7 % (42-52); Hemoglobin 10.2 g/dL (14.0-18.0); Mean Corpuscular Hgb Conc 32.2 g/dL (32-36); Mean Corpuscular Volume 99.4 fL (80-100); Nucleated RBC # (auto) 0.13 K/uL (0-0); Nucleated RBC % (auto) 1.7 %; Platelet Count 41 K/uL (130-400); RDW Coefficient of Variation 15.6 % (11.5-14.5); RDW Standard Deviation 56.1 fL (36.4-46.3); Red Blood Count 3.19 M/uL (4.7-6.1); White Blood Count 7.97 K/uL (4.8-10.8)
[2019-11-05] MEDS ORDERED: BICALUTAMIDE 50 MG TAB PO SCH (09:00)
--- NOTE | 2019-11-05 09:24 | Gastrointestinal Consultation ---
Date of Consultation November 05, 2019 Assessment & Plan (1) Acute GI bleedin84 year old male with ITP, prostate CA s/p radiation therapy admitted w/ painless rectal bleeding, low PLT ct likely secondary to known ITP - oncology consultation pending but he notes was evaluated this AM w/ plan for discharge home and hopeful for outpatient endoscopic work up Reports scant rectal bleeding, blood tinged stool HGB low but stable overnight PLT improving BUN non elevated No GI contraindication to discharge Should have outpatient EGD/Colonoscopy ddx hemorrhoidal bleed, radiation proctitis vs other Will sign off Thank you for allowing us to participate in the care of this patient. Please call with any acute changes, questions or concerns. Please see addendum below with additional recommendation from my supervising physician. Supervising Physician Co-Signing Physician Notes I have seen and discussed the management with MAGDA Thorne. Agree with further plan of care as above. Outpatient egd/colonoscopy. Platelets have improved - he wants to go home given he has missed two shots for ITP. History of Present Illness Reason for Consultation: rectal bleeding Requesting Physician: Titus Attending Physician: Emiliano Qureshi History of Present Illness 84 year old male with w/ history of ITP, prostate CA s/p radiation and seed placement who presents with 4 days of painless rectal bleeding. GI asked to evaluate. Pt was seen and evaluated, somewhat of a poor historian. Endorseis some loose stools for 2/3 days followed by looser stools with rectal bleeding x 4/5 days. Denies rectal pain. Reports stools are semi-formed and brown with bright red blood in the toilet bowel and in the toilet tissue. No clots. No dark, tarry stools. No rectal pain. He notes he had some abd cramping but this has since resolved. Now denies any abd pain. No UGI symptoms. No fever, chills, CP, SOB. Has known ITP missed last two doses of Romiplostim. Colonoscopy 2010: unable to load report Allergies Allergy/AdvReac Type Severity Reaction Status Date / Time gluten Allergy Intermediate rash Verified 11/04/19 10:22 Home Medications Home Medications Medication Instructions Recorded Confirmed Type calcium carbonate 600 mg (1,500 2 tab PO QAM #0 01/23/19 11/04/19 History mg)-vitamin D3 200 unit tablet peg 400-propylene glycol 0.4 %-0.3 1 drp OPHTHALMIC (EYE) BID #0 01/23/19 11/04/19 History % eye drops psyllium husk-calcium 1 gram-60 mg 2 cap PO HS #0 ml 01/23/19 11/04/19 History capsule bicalutamide 50 mg tablet 50 mg PO DAILY #90 tab 04/09/19 11/04/19 Rx alfuzosin 10 mg tablet,extended 10 mg PO DAILY #90 tab 05/03/19 11/04/19 Rx release 24 hr leuprolide (6 month) 45 mg 45 mg IM Q6MO ea 06/04/19 11/04/19 History intramuscular syringe kit vitamins A,C,K-oynv-iixwqr 7,160 2 tab PO BID 06/04/19 11/04/19 History unit-113 mg-100 unit tablet Metanx Methylfolate 10 mg PO DAILY 07/25/19 11/04/19 History glucosamine sulfate 2KCl 500 mg 500 mg PO DAILY cap 07/25/19 11/04/19 History capsule Patient History Medical History (Updated 11/04/19 @ 15:38 by Ry Schaefer DO) Anemia (Chronic) Celiac disease Celiac disease GERD (gastroesophageal reflux disease) Hemorrhoids Hx of Lyme disease Immune thrombocytopenia (Chronic) Interstitial lung disease per chest CT 02/15/2018 Prostate cancer (Chronic 2007) "Adenocarcinoma the prostate presenting PSA 1.0, clinical stage T2 aN0M0 Status post biopsies, Tony grade 3+3, biopsy stage [id number] Status post seed implant for cesium 131 on 01/08/2008 received 8500 cGy Status post completion of radiation therapy with IMRT/IGRT completed 04/11/2008 received 4500 cGy" Recurrent inguinal hernia of right side with obstruction Thrombocytopenia (Acute) Surgical History H/O splenectomy Hx of tonsillectomy S/P inguinal hernia repair Right IHR with small bowel resection 06/2016 Family History (Updated 11/04/19 @ 12:39 by Emiliano Qureshi) Father Myocardial infarction Mother , age 82 - cause uncertain No problems noted. 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 [employer] Other Information That Helps Us Care for You: No Feels Safe at Home: Yes Safety Concerns: Feels Safe At This Time Smoking Status: Former smoker Age Started Using Tobacco: 19 ; Age Quit Using Tobacco: 46 ; packs per day: 0.5 ; Cigarettes Per Day: 10 ; Smoking End Date: 37 years ago ; Number of Years Since Quit: 37 ; Hx Alcohol Use: Yes Alcohol type: wine Alcohol type Comment: 3-6oz/day Alcohol Intake Frequency: Daily Hx Substance Use: No Dental Care, Regularly: Yes Seatbelt Use: always Sunscreen Use: Yes Review of Systems Constitutional: no fever and no chills Respiratory: no cough and no dyspnea Cardiovascular: no chest pain and no dyspnea Gastrointestinal: + blood in stools; no abdominal pain Physical Exam Constitutional: well developed and well nourished; no acute distress Neck: trachea midline Respiratory: normal respiratory effort Gastrointestinal (Abdomen): Percussion/Palpation: abdomen soft Skin: no rashes, warm and dry Results & Data ([facility]) Vital Signs (Past 12 Hours) Vital Signs Temp Pulse Pulse Resp BP Pulse Ox 11/05/19 07:58 37.1 C 160/81 H 11/05/19 07:43 68 11/05/19 03:20 36.9 C 72 18 143/74 H 95 11/04/19 23:44 36.7 C 74 18 149/75 H 95 11/04/19 23:28 80 Laboratory Results 11/05/19 11/05/19 11/04/19 Range/Units 07:17 07:17 19:18 WBC 7.97 14.22 H (4.8-10.8) K/uL RBC 3.19 L 2.89 L (4.7-6.1) M/uL Hgb 10.2 L 9.4 L (14.0-18.0) g/dL Hct 31.7 L 28.4 L (42-52) % MCV 99.4 98.3 (80-100) fL MCH 32.0 32.5 (25-34) pg MCHC 32.2 33.1 (32-36) g/dL RDW Std Deviation 56.1 H 54.9 H (36.4-46.3) fL RDW Coeff of Karlene 15.6 H 15.7 H (11.5-14.5) % Plt Count 41 L D 12 L* D (130-400) K/uL MPV 12.0 H (7.4-10.4) fL Immature Gran % (Auto) % Neut % (Auto) % Lymph % (Auto) % [place] % (Auto) % Eos % (Auto) % Baso % (Auto) % Immature Gran # (Auto) (0.00-0.02) K/uL Neut # (Auto) (1.4-6.5) K/uL Lymph # (Auto) (1.2-3.4) K/uL [place] # (Auto) (0.11-0.59) K/uL Eos # (Auto) (0-0.5) K/uL Baso # (Auto) (0-0.2) K/uL Absolute Nucleated RBC 0.13 H 0.14 H (0-0) K/uL Nucleated RBC % (auto) 1.7 1.0 % Platelet Estimate SIGNIFIC DECREASED (Normal) [place] Bodies Acanthocytes (Spur) PT (9.0-12.0) Seconds INR (0.9-1.1) APTT (21.0-31.0) Seconds PTT Ratio Sodium 139 (136-145) mmol/L Potassium 4.1 (3.5-5.1) mmol/L Chloride 109 H (98-107) mmol/L Carbon Dioxide 23 (21-32) mmol/L Anion Gap 8.0 (3-11) BUN 14 (7-18) mg/dl Creatinine 1.02 (0.6-1.4) mg/dl Est Cr Clr Drug Dosing 51.3 ml/min Est GFR ( Amer) 78.4 Est GFR (Non-Af Amer) 67.7 BUN/Creatinine Ratio 13.2 (10-20) Glucose 112 H (70-99) mg/dl Calcium 9.0 (8.5-10.1) mg/dl Total Bilirubin (0.2-1) mg/dl AST (15-37) U/L ALT (12-78) U/L Alkaline Phosphatase (45-117) U/L Troponin I (0-0.045) ng/ml Total Protein (6.4-8.2) gm/dl Albumin (3.4-5.0) gm/dl Globulin (2.5-4.0) gm/dl Albumin/Globulin Ratio (0.9-2) Blood Type Antibody Screen Antibody Identification Antibody ID Referred Antibody ID Comment 11/04/19 11/04/19 11/04/19 Range/Units 14:07 10:07 10:07 WBC (4.8-10.8) K/uL RBC (4.7-6.1) M/uL Hgb (14.0-18.0) g/dL Hct (42-52) % MCV (80-100) fL MCH (25-34) pg MCHC (32-36) g/dL RDW Std Deviation (36.4-46.3) fL RDW Coeff of Karlene (11.5-14.5) % Plt Count (130-400) K/uL MPV (7.4-10.4) fL Immature Gran % (Auto) % Neut % (Auto) % Lymph % (Auto) % [place] % (Auto) % Eos % (Auto) % Baso % (Auto) % Immature Gran # (Auto) (0.00-0.02) K/uL Neut # (Auto) (1.4-6.5) K/uL Lymph # (Auto) (1.2-3.4) K/uL [place] # (Auto) (0.11-0.59) K/uL Eos # (Auto) (0-0.5) K/uL Baso # (Auto) (0-0.2) K/uL Absolute Nucleated RBC (0-0) K/uL Nucleated RBC % (auto) % Platelet Estimate (Normal) [place] Bodies Acanthocytes (Spur) PT 11.6 (9.0-12.0) Seconds INR 1.1 (0.9-1.1) APTT 23.4 (21.0-31.0) Seconds PTT Ratio 0.8 Sodium 139 (136-145) mmol/L Potassium 4.1 (3.5-5.1) mmol/L Chloride 105 (98-107) mmol/L Carbon Dioxide 23 (21-32) mmol/L Anion Gap 11.0 (3-11) BUN 19 H (7-18) mg/dl Creatinine 0.96 (0.6-1.4) mg/dl Est Cr Clr Drug Dosing 54.5 ml/min Est GFR ( Amer) 84.4 Est GFR (Non-Af Amer) 72.8 BUN/Creatinine Ratio 19.2 (10-20) Glucose 108 H (70-99) mg/dl Calcium 9.5 (8.5-10.1) mg/dl Total Bilirubin 0.6 (0.2-1) mg/dl AST 41 H (15-37) U/L ALT 24 (12-78) U/L Alkaline Phosphatase 181 H (45-117) U/L Troponin I < 0.015 (0-0.045) ng/ml Total Protein 7.9 (6.4-8.2) gm/dl Albumin 4.0 (3.4-5.0) gm/dl Globulin 3.9 (2.5-4.0) gm/dl Albumin/Globulin Ratio 1.0 (0.9-2) Blood Type Antibody Screen Antibody Identification Antibody ID Referred Pending Antibody ID Comment 11/04/19 11/04/19 Range/Units 10:07 10:07 WBC 12.37 H (4.8-10.8) K/uL RBC 3.55 L (4.7-6.1) M/uL Hgb 11.6 L (14.0-18.0) g/dL Hct 34.6 L (42-52) % MCV 97.5 (80-100) fL MCH 32.7 (25-34) pg MCHC 33.5 (32-36) g/dL RDW Std Deviation 55.3 H (36.4-46.3) fL RDW Coeff of Karlene 15.5 H (11.5-14.5) % Plt Count 5 L* (130-400) K/uL MPV (7.4-10.4) fL Immature Gran % (Auto) 0.5 % Neut % (Auto) 69.7 % Lymph % (Auto) 17.9 % [place] % (Auto) 10.8 % Eos % (Auto) 0.9 % Baso % (Auto) 0.2 % Immature Gran # (Auto) 0.06 H (0.00-0.02) K/uL Neut # (Auto) 8.62 H (1.4-6.5) K/uL Lymph # (Auto) 2.22 (1.2-3.4) K/uL [place] # (Auto) 1.33 H (0.11-0.59) K/uL Eos # (Auto) 0.11 (0-0.5) K/uL Baso # (Auto) 0.03 (0-0.2) K/uL Absolute Nucleated RBC 0.06 H (0-0) K/uL Nucleated RBC % (auto) 0.5 % Platelet Estimate SIGNIFIC DECREASED (Normal) [place] Bodies 1+ Acanthocytes (Spur) 1+ PT (9.0-12.0) Seconds INR (0.9-1.1) APTT (21.0-31.0) Seconds PTT Ratio Sodium (136-145) mmol/L Potassium (3.5-5.1) mmol/L Chloride (98-107) mmol/L Carbon Dioxide (21-32) mmol/L Anion Gap (3-11) BUN (7-18) mg/dl Creatinine (0.6-1.4) mg/dl Est Cr Clr Drug Dosing ml/min Est GFR ( Amer) Est GFR (Non-Af Amer) BUN/Creatinine Ratio (10-20) Glucose (70-99) mg/dl Calcium (8.5-10.1) mg/dl Total Bilirubin (0.2-1) mg/dl AST (15-37) U/L ALT (12-78) U/L Alkaline Phosphatase (45-117) U/L Troponin I (0-0.045) ng/ml Total Protein (6.4-8.2) gm/dl Albumin (3.4-5.0) gm/dl Globulin (2.5-4.0) gm/dl Albumin/Globulin Ratio (0.9-2) Blood Type A Positive Antibody Screen POSITIVE A Antibody Identification Pending Antibody ID Referred Antibody ID Comment Pending
--- NOTE | 2019-11-05 10:00 | Hospitalist Progress Note ---
Date of Service November 05, 2019 Assessment & Plan Admission and Anticipated Discharge Date Admission Date: November 04, 2019 Results & Data Results & Data ([facility]) Vital Signs (Past 12 Hours) Vital Signs Temp Pulse Pulse Resp BP Pulse Ox 11/05/19 07:58 37.1 C 160/81 H 11/05/19 07:43 68 11/05/19 03:20 36.9 C 72 18 143/74 H 95 11/04/19 23:44 36.7 C 74 18 149/75 H 95 11/04/19 23:28 80 PG Care Time/CCT Total # of Minutes Spent Total Time Spent with Patient: Total time spent is greater than 50% in coordination of care (as documented) at patient's floor/unit and/or counseling patient: Coding
[2019-11-05 11:47] VITALS: PULSE 69; TEMP 97.9; O2SAT 94
--- NOTE | 2019-11-05 12:07 | Discharge Summary ---
Date of Service November 05, 2019 Admission HPI Per Admitting Provider 84yo male with history of ITP who presents with 4 days of rectal bleeding. At times it is BRBPR and other times it is maroon-colored, especially when the blood is mixed with stool. He has had several months of fecal urgency. Has h/o prostate cancer in 2008 - treated with external beam radiation and radioactive seeds and later lupron. No abdominal pain. Appetite has been normal. No fevers or chills. 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 He is currently on Romiplostim subcutaneous but his most recent 2 injections were held because of thrombocytosis. Last colonoscopy - 10+ years - no polyps or other pathology to his recollection. Admission Exam Per Admitting Provider Constitutional: well developed, well nourished and average body habitus; no acute distress and no altered mental status Eyes: PERRL ENMT: external ear and nose normal, oropharynx normal minimal palatal petichiae Neck: trachea midline, no thyromegaly Respiratory: no respiratory distress Auscultation: + rales (fine, dry - bases); no diminished lung sounds and no wheezes Cardiovascular: Rate/Rhythm: regular rate and regular rhythm Heart Sounds: normal S1, normal S2 and + murmur (2/6 RUSB holosystolic) Vessels: posterior tibial pulses present and dorsalis pedis pulses present; no JVD Extremities: no edema Gastrointestinal (Abdomen): normal bowel sounds, soft, nontender, no hepatosplenomegaly Musculoskeletal: no cyanosis or clubbing, extremities motor strength 5/5 Skin: petechaie on legs Neurologic: deep tendon reflexes 2+ bilaterally and moves all extremities; no focal motor deficits Psychiatric: A+Ox3, euthymic affect Lymphatic: no cervical lymphadenopathy Principal Diagnosis Severe ITP, Rectal Bleeding Discharge Exam Constitutional WD/WN, vitals as above no acute distress Eyes + anicteric sclerae and PERRL ENMT external ear and nose normal, oropharynx normal Neck trachea midline, no thyromegaly Respiratory normal respiratory effort, lungs clear to auscultation Cardiovascular Rate/Rhythm: regular rate and regular rhythm Heart Sounds: normal S1, normal S2 and + murmur (3/6 holosystolic with radiation to carotids) Vessels: no JVD Extremities: no edema Gastrointestinal (Abdomen) normal bowel sounds, soft, nontender, no hepatosplenomegaly Musculoskeletal no cyanosis or clubbing, extremities motor strength 5/5 Skin no rashes, warm and dry petechiae on legs present Neurologic patellar DTR's 2+ bilat, sensation intact Psychiatric A+Ox3, euthymic affect Lymphatic no cervical or axillary lymphadenopathy Discharge Data Allergies Allergy/AdvReac Type Severity Reaction Status Date / Time gluten Allergy Intermediate rash Verified 11/04/19 10:22 Consultations 11/04/19 11:47 ED Decision to Admit Stat 11/04/19 15:53 Consult Gastroenterology Routine Consult Hematology Routine Hospital Course (1) Immune thrombocytopenia: Likely the holding of the patient's last 2 doses of Romiplostim led to his precipitous drop in platelets per conversation had with patient's oncologist. Given IVIG 1gm/kg CBC remained stable. Platelets improved from 12 to 42. After conversation with oncology, no further agents/intervention at this time, acceptable for discharge. Oncology on consult during admission Repeat labs as outpatient at discretion of Dr. Easton -- patient to receive injection tomorrow (11/05) (2) Rectal bleeding: CT abd/pelvis in 2018 showed diverticular disease. Diverticulosis vs internal hemorrhoids vs colonic AVM vs cancer vs other factors could be causing BRBPR in the setting of his severe thrombocytopenia. Last colonoscopy was about 10 years ago. Protonix IV while inpatient --> transitioned to 20mg PO daily per GI recommendation GI consulted -- recommended outpatient EGD/colonoscopy for further evaluation Given iron supplementation PO to take as outpatient (3) Aortic stenosis, moderate: Noted. Association b/w AVMs with -- see above No symptoms from his at this time. (4) Prostate hyperplasia with urinary obstruction: Cont alpha linsey - BP acceptable to allow its use. BPs actually elevated slightly, although patient stated vitals were taken after activity (5) Celiac disease: When eating again gluten-free diet. (6) Epistaxis: Resolved 2nd to ITP. bactroban to nares BID. frequent saline spray prn. Treated #1 as above (7) Interstitial lung disease: As seen on prior imaging. O2 sat 94% on RA Asymptomatic (8) DVT prophylaxis: SCDs while inpatient Chemical means contraindicated given his severe thrombocytopenia. Total Time Total Time Spent Total Time Spent (In Minutes): 60 Discharge Plan Discharge Items Patient Disposition: Home - Self-Care Reason For Visit: SEVERE THROMBOCYTOPENIA, RECTAL BLEEDING Discharge Diagnosis: Severe ITP, Rectal Bleeding Condition on Discharge: Fair Health Concerns: You have been hospitalized for an acute medical problem. During your stay at [facility], we have made an effort to correct the problem that brought you to the hospital while keeping you as comfortable as possible. Medications were used to bring your condition under control and your discharge instructions will include directions for any medications you should take after leaving the hospital. Please make sure you see your Primary Care Provider as part of your follow up plan. Activity: Resume your previous activity Non-emergency contact: Primary Care Provider and Oncologist Call non-emergency contact if: you have any medication questions, your symptoms worsen and you have a fever Follow-up/Referrals: Pedro Abel III, MD [Primary Care Provider] - (YARI @ DR. ABEL'S OFFICE SAID THAT THEY WILL CONTACT PATIENT TO SCHEDULE APPT) Tyler Easton DO [Physician] - Danae Holder M.D. [Hospitalist] - (1 week) Diet: Heart Healthy Addtl Attending Provider Instructions: You have been hospitalized for very low platelets and rectal bleeding. You were given IVIg to increase your platelets and protonix IV to help with rectal bleeding. You were seen by [facility] (gastroenterology) during this admission and it is determined that you may have some post-radiation hemorrhoidal bleeding vs radiation proctitis. For this reason, it is recommended that you have an outpatient EGD/colonoscopy for further work-up. You have been given a prescription for protonix 20mg by mouth to take once daily. This should be scheduled outpatient in the next month. If you do not receive a call from their office, please call [phone]. It is also recommended that you take oral iron supplementation. A prescription has been sent, but if your insurance does not cover this, you may buy it over the counter. Note, this may darken the colors of your stool and contribute to constipation. An over the counter stool softener is appropriate if you find yourself dealing with this. Please follow up with you primary care in the next week as well as Dr. Easton tomorrow for your injection. If you have any worsening of your symptoms, chest pain, shortness of breath, or increased bleeding, please return to the emergency room. It has been a pleasure being apart of the medical team providing for you while you have been hospitalized. Take care! Pending Studies at Discharge: No Stand-Alone Forms: [facility] Medications and DC Order Prescriptions: New pantoprazole [Protonix] 20 mg tablet,delayed release (DR/EC) 20 mg PO DAILY Qty: 30 RF: 0 ferrous sulfate 325 mg (65 mg iron) tablet 325 mg PO DAILY Qty: 30 RF: 0 Continued Metamucil Plus Calcium 1-60 gram-mg capsule 2 cap PO HS Qty: 0 RF: 0 Systane Ultra 0.4-0.3 % drops 1 drp OPHTHALMIC (EYE) BID Qty: 0 RF: 0 calcium carbonate-vitamin D3 [Calcium 600 + D(3)] 600 mg(1,500mg) -200 unit tablet 2 tab PO QAM Qty: 0 RF: 0 alfuzosin 10 mg tablet extended release 24 hr 10 mg PO DAILY Qty: 90 RF: 4 leuprolide (6 month) 45 mg syringe kit 45 mg IM Q6MO RF: 0 PreserVision AREDS 7,160-113-100 lthz-kn-krss tablet 2 tab PO BID RF: 0 bicalutamide 50 mg tablet 50 mg PO DAILY Qty: 90 RF: 3 glucosamine sulfate 2KCl 500 mg capsule 500 mg PO DAILY RF: 0 Metanx Methylfolate 10 mg tablet 10 mg PO DAILY RF: 0 Discharge Orders: Discharge Order (Routine); Ordered 11/05/19 Ordered By: Amber Woodall Admission Data Admit Date/Time: 11/04/19 13:04 Attending Provider: Emiliano Qureshi Admit Provider: Emiliano Qureshi Primary Care Provider: Pedro Abel III Other Providers: Emiliano Qureshi ; Danae Holder ; Tyler Easton V. Other Interventions: Discharge Summary Assessment (RN) Last Done: 11/05/19 14:08 DC Date/Time DO NOT enter until pt leaves facility: 11/05/19 14:53 Supervising Physician Co-Signing Physician Notes Attending Attestation and Discharge Note: Pt seen/examined, chart reviewed, care plan d/w NEMESIO Woodall. I agree w/ the herrera components of her documentation. 84yo male with known ITP s/p splenectomy in the past who presented with rectal bleeding. At time of admission platelet count was 5. Received IVIG with improvement in platelet count to 41. Rectal bleeding improved once his platelets derrick in number. He was seen in consult by Dr Tyler Easton, Oncology - as well as Sana MRARUFO. Sana MARRUFO to perform outpatient EGD & colonoscopy. Patient had very modest acute blood loss anemia from the rectal bleeding with discharge Hb of 10.2. 24 hours post-discharge the patient will present to the [facility] for his next injection of romiplostim for the ITP. Dr Easton will continue to monitor his platelet count. Discharge exam: gen - NAD skin - mild pallor; petechiae on legs neck - no JVD heart - 2/6 holosystolic murmur RUSB, RRR lungs - minimal bibasilar dry rales abd - soft NT ND BS+ ext - no edema Patient to take 20mg protonix post-discharge as recommended by GI. Emiliano Qureshi MD Coding Level of Care Code D/C Day Management >30 mins Diagnoses Immune thrombocytopenia D69.3 Rectal bleeding K62.5 Aortic stenosis, moderate I35.0 Prostate hyperplasia with urinary obstruction N40.1; N13.8 Celiac disease K90.0 Epistaxis R04.0 Interstitial lung disease J84.9 DVT prophylaxis Z29.9
--- NOTE | 2019-11-05 12:18 | Consultation Report ---
DATE OF CONSULTATION: 11/05/2019 HEMATOLOGY CONSULTATION REASON FOR CONSULTATION: Severe thrombocytopenia due to refractory ITP. HISTORY OF PRESENT ILLNESS: Levi Brown is a pleasant 84-year-old gentleman, previously managed by Dr. Martinez, who recently took on my service after Dr. Martinez's departure for ITP and metastatic prostate cancer. The patient has been receiving weekly romiplostim subcutaneous weekly, which has reasonably controlled his platelet count. Over the past several weeks, there has been significant fluctuation in his platelet count, one measurement well over 600. We appropriately held drug that day and also the next week when his platelet count was over 200,000. The patient has remained on the same dose throughout and clearly dose adjustments need to be made moving forward. He presented to the Emergency Room with a platelet count of 5000 and rectal bleeding, which was largely uncontrolled. I spoke to Dr. Qureshi, the managing hospitalist, and recommended IVIG 1 gram per kilogram administered yesterday. His platelet count is now 12,000. rectal bleeding has slowed. Platelet count this morning is pending. GI is appropriately on consultation, but hesitant to perform endoscopic examination with his platelet count low. Levi was also diagnosed with Tony score 6 prostate cancer in 2007 and received brachytherapy under Dr. Wang's direction. The patient has been on Lupron and Casodex for the past several months, specifically because of rising PSA. He remains asymptomatic, specifically denying skeletal pain or urinary disruption. Thus, plans are underway to consider treatment change, specifically Zytiga in conjunction with prednisone. When I saw him back in late September, he was instructed to follow up in 2 months. He is due for next dose of Nplate tomorrow and therefore if medically stable, would like him discharged, so he may continue subcutaneous thrombopoietin. PAST MEDICAL HISTORY: Again, significant for celiac disease, gastroesophageal reflux, hemorrhoids, history of Lyme disease, ITP, prostate cancer. PAST SURGICAL HISTORY: Status post splenectomy last year, history of tonsillectomy, inguinal hernia repair and right IHR with small bowel resection in 2017. MEDICATIONS: Prior to admission include weekly romiplostim, calcium carbonate, psyllium husk calcium 1 gram/60 mg capsule 2 capsules p.o. at bedtime, bicalutamide 50 mg p.o. daily, alfuzosin 10 mg p.o. daily, leuprolide 45 mg IM q.6 months, Vitamins A,C,O-Ridp-Lxrhaw 2 tablets p.o. b.i.d., Metanx methyl folate 10 mg p.o. daily, glucosamine sulfate 500 mg p.o. daily. ALLERGIES: GLUTEN. FAMILY HISTORY: Father of myocardial infarction. Mother at age 82, cause uncertain. SOCIAL HISTORY: The patient lives in [place] with his spouse. He has multiple grandchildren. He is retired. He was a reformed smoker, positive for social alcohol consumption. Negative for illicit drugs. REVIEW OF SYSTEMS: The patient had presented with a profoundly low platelets and active rectal bleeding. GENERAL: Negative for fevers, chills or sweats. He denies anorexia or weight loss. SKIN: No rashes or lesions. No history of dermatoses. HEENT: Positive for epistaxis. Negative for headaches, lightheadedness or dizziness. No acute visual issues. No hearing deficits. No sore throat or dysphagia. LYMPHATICS: No history of lymphoproliferative disease. CARDIAC: No current angina or palpitations. No history of coronary artery disease. PULMONARY: Negative for COPD. He is not short of breath, dyspneic or orthopneic. No cough or hemoptysis. GASTROINTESTINAL: Again, positive for active rectal bleeding. No abdominal pain, nausea, vomiting, diarrhea or constipation at present. GENITOURINARY: Positive history of hormone refractory metastatic prostate cancer. No hematuria or dysuria presently. MUSCULOSKELETAL: No arthralgias, no focal muscle weakness. ENDOCRINE: Negative for diabetes or thyroid disease. NEUROLOGIC: Negative for seizure, stroke, or migraine headache. HEMATOLOGIC: Positive for ITP. PHYSICAL EXAMINATION: NEUROLOGICAL: A very pleasant 84-year-old gentleman, awake, alert and appropriate, in no acute distress. VITAL SIGNS: Temperature 36.9, pulse 68, respiratory rate 18, blood pressure 143/72. SKIN: Warm, dry, noncyanotic without petechia, rash or ecchymosis. HEENT: Head is atraumatic, normocephalic. Eyes: PERRLA, EOMI. Sclerae nonicteric. No conjunctival injection. Nares patent without rhinorrhea or discharge. Throat clear. Tongue midline. No buccal lesions or ulcerations. NECK: Supple without JVD or thyromegaly. LYMPHATICS: No cervical or supraclavicular palpable nodes. HEART: Regular rate and rhythm. No clicks or rubs. There is an early systolic murmur heard in the left precordium II/. LUNGS: Clear to auscultation bilaterally. ABDOMEN: Soft, nontender, nondistended, without palpable hepatosplenomegaly. EXTREMITIES: Musculoskeletal strength and pulses are equal in all 4 quadrants. No clubbing, cyanosis or edema. NEUROLOGICAL: He is awake, alert and oriented x3. Cranial nerves II-XII are grossly intact. LABORATORY DATA: Labs are pending for today at the time of this dictation. Again, his platelet count was 5000 on admission, has improved to 12,000 since receiving IVIG. IMPRESSION: 1. Refractory immune thrombocytopenic purpura. 2. Active rectal bleeding. 3. Metastatic hormone refractory prostate cancer. PLAN: In summary, Levi is a very pleasant 84-year-old gentleman, I recently took over his care from Dr. Martinez with refractory ITP. This patient has received a gamut of different immune modulating therapies including splenectomy in 2019. He was previously on oral thrombopoietin (Promacta), which was largely ineffective. The patient has continued subcutaneous romiplostim (Nplate) weekly at virtually similar doses. He has had a dramatic fluctuations in his platelet count and as a result of holding his last 2 doses, platelet count plummeted to single digits. We will plan to resume Nplate at current dose for the next couple of administration until his platelet count recovers. Should he have a platelet count in excess of 400,000, we will begin to adjust his dose accordingly. Meanwhile, gastroenterology should scope this gentleman as I believe there is significant pathology to be revealed. Certainly, GI workup can be completed as outpatient. We will continue to monitor his prostate cancer and poise to change his therapy from current total androgen blockade to Zytiga in a combination with prednisone moving forward. Levi is in good spirits today. I see no reason why he cannot be discharged within the next 24 hours or so. I anticipate seeing him in the office tomorrow to receive thrombopoietin. Thank you very much for allowing me to participate in his care. If you have any questions or concerns, feel free to contact me at any time.
[2019-11-05 14:06] VITALS: BP 153/74
[2019-11-05] MEDS ORDERED: ALFUZOSIN HCL 10 MG TAB PO SCH (16:30)
== END 2019-11-05 14:53 | disposition home or self-care (01) | DRG 813 ==
LOC: ED 09:29 → 2S 13:04

== ENCOUNTER 2020-07-20 12:35 | Inpatient (IN) ==
[2020-07-20] MEDS ORDERED: diphenhydrAMINE 50 MG/ML VIAL IV STA (13:05)
[2020-07-20] MEDS ORDERED: PROCHLORPERAZINE 1 ML IV ONE (13:05)
--- NOTE | 2020-07-20 13:08 | Emergency Department Note ---
History of Present Illness General Chief complaint: Pain (Generalized) Stated complaint: CANCER, INTENSE PAIN Time Seen by Provider: 07/20/20 12:57 Source: patient Mode of arrival: ambulatory Limitations: no limitations History of Present Illness Provider complaint: Weakness, nausea, worsening pain Onset (ago): week(s) Maximum Pain Intensity: 5 Associated symptoms: + loss of appetite, + malaise, + nausea/vomiting and + weakness Treatments prior to arrival: none This is an 84-year-old male who presents from home due to concern for worsening nausea and increased pain related to his metastatic prostate cancer. Patient s harmony his oncologist is Dr. [place] who he is supposed to see on Monday. Patient states he was seen and evaluated here last week, and his pain medication was changed from OxyContin to hydrocodone liquid. He states he was also given Zofran for nausea which she states is not helping. He states he is very nauseated and gets full quickly. Patient and are concerned about him being dehydrated. They state last week he was also constipated, and were given an enema which helped. They state they do not feel he is constipated at this time. Patient denies any fevers or chills, chest pain or trouble breathing. states he has had a 30 pound weight loss over the last 2 months. Pt seen during a time of high acuity and national emergency pandemic while wearing PPE. Home Medications Medication Instructions Recorded Confirmed Type calcium carbonate 600 mg (1,500 2 tab PO QAM #0 01/23/19 07/20/20 History mg)-vitamin D3 200 unit tablet psyllium husk-calcium 1 gram-60 mg 2 cap PO QAM #0 ml 01/23/19 07/20/20 History capsule leuprolide (6 month) 45 mg 45 mg IM Q6MO ea 06/04/19 07/20/20 History intramuscular syringe kit vitamins A,C,R-qakr-qzricr 7,160 1 tab PO BID 06/04/19 07/20/20 History unit-113 mg-100 unit tablet glucosamine sulfate 2KCl 500 mg 500 mg PO PM cap 07/25/19 07/20/20 History capsule abiraterone, submicronized 125 mg 500 mg PO QAM 12/26/19 07/20/20 History tablet alfuzosin 10 mg PO PM 02/07/20 07/20/20 History mecobal-levomefolat Ca-B6 phos 1 tab PO BID 02/07/20 07/20/20 History oxycodone 5 mg tablet 5 mg PO Q4H PRN #30 tab 05/01/20 07/20/20 Rx pantoprazole 20 mg tablet,delayed 20 mg PO DAILY #90 tab 05/04/20 07/20/20 Rx release furosemide 20 mg tablet 20 mg PO DAILY PRN #14 tab 06/22/20 07/20/20 Rx omeprazole 20 mg PO DAILY #30 tab 07/08/20 07/20/20 Rx ondansetron 8 mg PO Q8H PRN 15 Days #45 tab 07/08/20 07/20/20 Rx hydrocodone-acetaminophen 10 ml PO Q6H PRN #250 ml 07/10/20 07/20/20 Rx Allergies Allergy/AdvReac Type Severity Reaction Status Date / Time gluten Allergy Intermediate rash Verified 07/20/20 14:06 Past Med/Surg History Medical History Anemia Aortic stenosis, moderate Per most recent echo, severe with valve area 0.9 and pressure grad 27mmHg Celiac disease GERD (gastroesophageal reflux disease) Hemorrhoids History of GI bleed Hx of Lyme disease Immune thrombocytopenia Interstitial lung disease per chest CT 02/15/2018 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, lower lumbar, brain Prostate cancer (2007) "Adenocarcinoma the prostate presenting PSA 1.0, clinical stage T2 [id number] Status post biopsies, [place] grade 3+3, biopsy stage [id number] Status post seed implant for cesium 131 on 01/08/2008 received 8500 cGy Status post completion of radiation therapy with IMRT/IGRT completed 04/11/2008 received 4500 cGy" brachy therapy and radiation Recurrent inguinal hernia of right side with obstruction Thrombocytopenia Surgical History H/O splenectomy History of colonoscopy (12/23/19) Evidence of radiation proctitis, advised treatment with sucralfate enema 2 g b.i.d. x1 month, [facility] History of esophagogastroduodenoscopy (EGD) (12/23/19) [facility], hiatal hernia noted, otherwise unremarkable Hx of tonsillectomy S/P inguinal hernia repair Right IHR with small bowel resection 06/2016 Family History Father Myocardial infarction Mother , age 82 - cause uncertain No problems noted. 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 and A total of 10 systems reviewed and were otherwise negative Physical Exam Vital Signs Vital Signs - 24 hr 07/20/20 12:48 07/20/20 14:59 07/20/20 15:03 Temperature 36.3 C L Temperature Source Temporal Artery Scan Pulse Rate 84 77 75 Pulse Rate from SpO2 Sensor Respiratory Rate 16 20 16 Respiratory Effort / Characteristics Non-Labored Respiratory Depth Normal Respiratory Pattern Regular Blood Pressure 123/76 136/70 Blood Pressure Mean 91 92 Blood Pressure Position Sitting Pulse Oximetry 98 Oxygen Delivery Method Room Air Sepsis Recent Fever Within 48 Hours No Sepsis New/Unexplained Change in Mental Status N/A Sepsis Action Taken by Nursing No Action Required 07/20/20 15:30 07/20/20 16:00 07/20/20 16:30 Temperature Temperature Source Pulse Rate 81 84 76 Pulse Rate from SpO2 Sensor 82 77 Respiratory Rate 14 14 15 Respiratory Effort / Characteristics Respiratory Depth Respiratory Pattern Blood Pressure Blood Pressure Mean Blood Pressure Position Pulse Oximetry 96 98 Oxygen Delivery Method Sepsis Recent Fever Within 48 Hours Sepsis New/Unexplained Change in Mental Status Sepsis Action Taken by Nursing 07/20/20 17:00 07/20/20 17:10 07/20/20 17:30 Temperature Temperature Source Pulse Rate 73 74 78 Pulse Rate from SpO2 Sensor 74 73 78 Respiratory Rate 13 14 13 Respiratory Effort / Characteristics Respiratory Depth Respiratory Pattern Blood Pressure 108/61 139/69 Blood Pressure Mean 76 92 Blood Pressure Position Pulse Oximetry 97 97 96 Oxygen Delivery Method Sepsis Recent Fever Within 48 Hours Sepsis New/Unexplained Change in Mental Status Sepsis Action Taken by Nursing 07/20/20 18:00 Temperature Temperature Source Pulse Rate 74 Pulse Rate from SpO2 Sensor 74 Respiratory Rate 16 Respiratory Effort / Characteristics Respiratory Depth Respiratory Pattern Blood Pressure 127/64 Blood Pressure Mean 85 Blood Pressure Position Pulse Oximetry 96 Oxygen Delivery Method Sepsis Recent Fever Within 48 Hours Sepsis New/Unexplained Change in Mental Status Sepsis Action Taken by Nursing GENERAL: alert, ill appearing, cachectic, no distress, non-toxic EYE EXAM: normal conjunctiva, PERRL and EOM's grossly intact OROPHARYNX: no exudate, no erythema, lips, buccal mucosa, and tongue normal and mucous membranes are moist NECK: supple, no nuchal rigidity, no adenopathy, non-tender LUNGS: Clear to auscultation. Normal chest wall mechanics, no w/r/r HEART: no murmurs, S1 normal and S2 normal ABDOMEN: abdomen soft, non-tender, normo-active bowel sounds, no masses, no rebound or guarding. BACK: Back is symmetrical on inspection and there is no deformity, no midline tenderness, no CVA tenderness. SKIN: no rashes and no bruising UPPER EXTREMITIES: upper extremities are grossly normal. FROM, nml pulses b/l. LOWER EXTREMITIES: 2+ pitting edema. FROM, nml pulses b/l. NEURO EXAM: Normal sensorium, cranial nerves II-XII grossly intact, normal speech, no gross weakness of arms, no gross weakness of legs. Gross sensation intact. Course Course 1515: Pt updated on results. Pt and concerned about going home given persistent symptoms. VS stable. Administered Medications Alfuzosin HCl (Alfuzosin Hcl 10 Mg Tab) 10 mg PO PM JAZMYNE Stop: 08/19/20 20:59 Last Admin: 07/20/20 20:20 Dose: 10 mg Documented by: [id number] Diclofenac Sodium (Diclofenac Sod 1% Gel 100 Gm Tube) 4 gm EXT QID [facility] Stop: 08/20/20 16:59 Last Admin: 07/21/20 17:25 Dose: Not Given Documented by: [id number] Hydromorphone HCl (Hydromorphone Inj 0.5 Mg/0.5 Ml Syr) 0.5 mg IV Q4H PRN PRN Reason: Severe Pain Stop: 08/03/20 20:19 Last Admin: 07/21/20 14:21 Dose: 0.5 mg Documented by: [id number] Admin: 07/21/20 08:00 Dose: 0.5 mg Documented by: [id number] Admin: 07/21/20 02:03 Dose: 0.5 mg Documented by: [id number] Sodium Chloride (Nss 1000ml) 1,000 mls @ 100 mls/hr IV .Q10H [facility] Stop: 07/22/20 04:14 Last Admin: 07/21/20 18:40 Dose: 100 mls/hr Documented by: [id number] Infusion: 07/21/20 18:39 Dose: 100 mls/hr Documented by: [id number] Admin: 07/21/20 08:39 Dose: 100 mls/hr Documented by: [id number] Infusion: 07/21/20 08:39 Dose: 100 mls/hr Documented by: [id number] Admin: 07/20/20 22:41 Dose: 100 mls/hr Documented by: [id number] Dexamethasone 6 mg/ Syringe 1.5 mls @ 1 mls/min IV DAILY [facility] Stop: 08/20/20 10:29 Last Admin: 07/21/20 11:02 Dose: 1 mls/min Documented by: [id number] Lidocaine (Lidocaine 5% 1 Patch) 3 patch TD QAM [facility] Stop: 08/20/20 16:59 Last Admin: 07/21/20 17:24 Dose: 3 patch Documented by: [id number] Multivitamins/Minerals (Cerovite Adv Formula Tab) 1 tab PO BID [facility] Stop: 08/19/20 20:59 Last Admin: 07/21/20 08:01 Dose: 1 tab Documented by: [id number] Admin: 07/20/20 20:21 Dose: 1 tab Documented by: [id number] Multivitamins/Minerals (Calcium 600mg + Vit D 400 Iu Tab) 1 tab PO QAM [facility] Stop: 08/20/20 08:59 Last Admin: 07/21/20 08:00 Dose: 1 tab Documented by: [id number] Nystatin (Nystatin Susp 500,000 U/5 Ml Udc) 5 ml PO QID [facility] Stop: 07/31/20 16:59 Last Admin: 07/21/20 17:25 Dose: 5 ml Documented by: [id number] Pantoprazole Sodium (Pantoprazole 40 Mg Tab) 40 mg PO DAILY [facility] Stop: 08/20/20 08:59 Last Admin: 07/21/20 08:01 Dose: 40 mg Documented by: [id number] Polyethylene Glycol (Polyethylene (Miralax) 17 Gm Pack) 17 gm PO BID [facility] Stop: 08/19/20 20:59 Last Admin: 07/21/20 08:01 Dose: Not Given Documented by: [id number] Admin: 07/20/20 20:50 Dose: Not Given Documented by: [id number] Senna/Docusate Sodium (Docusate Sodium/Senna 50/8.6mg Tab) 1 tab PO BID [facility] Stop: 08/19/20 20:59 Last Admin: 07/21/20 08:01 Dose: 1 tab Documented by: [id number] Admin: 07/20/20 22:00 Dose: Not Given Documented by: [id number] Discontinued Medications Diphenhydramine HCl (Diphenhydramine 50 Mg/Ml Vial) 12.5 mg IV NOW STA Stop: 07/20/20 13:06 Last Admin: 07/20/20 14:40 Dose: 12.5 mg Documented by: [id number] Hydromorphone HCl (Hydromorphone Inj 0.5 Mg/0.5 Ml Syr) 0.5 mg IV NOW STA Stop: 07/20/20 14:56 Last Admin: 07/20/20 14:59 Dose: 0.5 mg Documented by: [id number] Lactated Ringer's (Lr) 1,000 mls @ 250 mls/hr IV .Q4H [facility] Stop: 08/19/20 13:14 Last Admin: 07/20/20 19:57 Dose: Not Given Documented by: [id number] Infusion: 07/20/20 18:40 Dose: 0 mls/hr Documented by: [id number] Admin: 07/20/20 14:40 Dose: 250 mls/hr Documented by: [id number] Prochlorperazine (Compazine) 1 mls @ 1 mls/min IV ONE ONE Stop: 07/20/20 13:06 Last Admin: 07/20/20 14:40 Dose: 1 mls/min Documented by: [id number] Acetaminophen (Ofirmev) 1,000 mg in 100 mls @ 400 mls/hr IV NOW STA Stop: 07/20/20 15:09 Last Infusion: 07/20/20 15:19 Dose: 0 mls/hr Documented by: [id number] Admin: 07/20/20 14:59 Dose: 400 mls/hr Documented by: [id number] Psyllium Hydrophilic Mucilloid (Psyllium 58.6% Powder Packet) 1 pkt PO QAM JAZMYNE Stop: 08/20/20 08:59 Last Admin: 07/21/20 08:04 Dose: Not Given Documented by: [id number] Medical Decision Making Differential Diagnosis Differential: Gastroenteritis, Food Borne, Esophageal Perforation, , Electrolyte Abnormality, Dehydration, Intraabdominal Infection, UTI/Pyelonephritis, Bowel Obstruction, Biliary Pathology, medication related, malignancy related, amongst other pathology entertained. Medical Records Attestation: I reviewed the patient's medical records. Home Medications Current Medication List: was personally reviewed by me Laboratory Data Attestation: I reviewed the patient's lab results. Result diagrams: 07/20/20 14:07 07/20/20 14:07 Lab Results 07/20/20 07/20/20 07/20/20 Range/Units 14:07 14:07 14:07 WBC 11.97 H (4.8-10.8) K/uL RBC 3.10 L (4.7-6.1) M/uL Hgb 9.9 L (14.0-18.0) g/dL Hct 30.4 L (42-52) % MCV 98.1 (80-100) fL MCH 31.9 (25-34) pg MCHC 32.6 (32-36) g/dL RDW Std Deviation 60.1 H (36.4-46.3) fL RDW Coeff of Karlene 17.2 H (11.5-14.5) % Plt Count 147 (130-400) K/uL MPV 10.5 H (7.4-10.4) fL Immature Gran % (Auto) 1.3 % Neut % (Auto) 76.3 % Lymph % (Auto) 11.4 % [place] % (Auto) 10.8 % Eos % (Auto) 0.1 % Baso % (Auto) 0.1 % Neut # (Auto) 9.14 H (1.4-6.5) K/uL Lymph # (Auto) 1.36 (1.2-3.4) K/uL [place] # (Auto) 1.29 H (0.11-0.59) K/uL Eos # (Auto) 0.01 (0-0.5) K/uL Baso # (Auto) 0.01 (0-0.2) K/uL Immature Gran # (Auto) 0.16 H (0.00-0.02) K/uL Absolute Nucleated RBC 0.21 H (0-0) K/uL Nucleated RBC % (auto) 1.7 % PT 12.6 H (9.0-12.0) Seconds INR 1.2 H (0.9-1.1) Sodium 134 L (136-145) mmol/L Potassium 4.5 (3.5-5.1) mmol/L Chloride 104 (98-107) mmol/L Carbon Dioxide 22 (21-32) mmol/L Anion Gap 9.0 (3-11) BUN 25 H (7-18) mg/dl Creatinine 0.85 (0.6-1.4) mg/dl Est Cr Clr Drug Dosing Not Reportable Est GFR ( Amer) 93.4 Est GFR (Non-Af Amer) 80.6 BUN/Creatinine Ratio 28.9 H (10-20) Glucose 97 (70-99) mg/dl Calcium 8.0 L (8.5-10.1) mg/dl Magnesium 2.5 H (1.8-2.4) mg/dl Total Bilirubin 0.8 (0.2-1) mg/dl AST 202 H (15-37) U/L ALT 21 (12-78) U/L Alkaline Phosphatase 609 H (45-117) U/L Troponin I < 0.015 (0-0.045) ng/ml Total Protein 6.2 L (6.4-8.2) gm/dl Albumin 2.6 L (3.4-5.0) gm/dl Globulin 3.6 (2.5-4.0) gm/dl Albumin/Globulin Ratio 0.7 L (0.9-2) Prostate Specific Ag 165.000 H (0-4) ng/ml TSH 2.850 (0.300-4.500) uIu/ml SARS-CoV-2, RNA, NAAT (NEGATIVE) 07/20/20 Range/Units 17:00 WBC (4.8-10.8) K/uL RBC (4.7-6.1) M/uL Hgb (14.0-18.0) g/dL Hct (42-52) % MCV (80-100) fL MCH (25-34) pg MCHC (32-36) g/dL RDW Std Deviation (36.4-46.3) fL RDW Coeff of Karlene (11.5-14.5) % Plt Count (130-400) K/uL MPV (7.4-10.4) fL Immature Gran % (Auto) % Neut % (Auto) % Lymph % (Auto) % [place] % (Auto) % Eos % (Auto) % Baso % (Auto) % Neut # (Auto) (1.4-6.5) K/uL Lymph # (Auto) (1.2-3.4) K/uL [place] # (Auto) (0.11-0.59) K/uL Eos # (Auto) (0-0.5) K/uL Baso # (Auto) (0-0.2) K/uL Immature Gran # (Auto) (0.00-0.02) K/uL Absolute Nucleated RBC (0-0) K/uL Nucleated RBC % (auto) % PT (9.0-12.0) Seconds INR (0.9-1.1) Sodium (136-145) mmol/L Potassium (3.5-5.1) mmol/L Chloride (98-107) mmol/L Carbon Dioxide (21-32) mmol/L Anion Gap (3-11) BUN (7-18) mg/dl Creatinine (0.6-1.4) mg/dl Est Cr Clr Drug Dosing Est GFR ( Amer) Est GFR (Non-Af Amer) BUN/Creatinine Ratio (10-20) Glucose (70-99) mg/dl Calcium (8.5-10.1) mg/dl Magnesium (1.8-2.4) mg/dl Total Bilirubin (0.2-1) mg/dl AST (15-37) U/L ALT (12-78) U/L Alkaline Phosphatase (45-117) U/L Troponin I (0-0.045) ng/ml Total Protein (6.4-8.2) gm/dl Albumin (3.4-5.0) gm/dl Globulin (2.5-4.0) gm/dl Albumin/Globulin Ratio (0.9-2) Prostate Specific Ag (0-4) ng/ml TSH (0.300-4.500) uIu/ml SARS-CoV-2, RNA, NAAT NEGATIVE (NEGATIVE) ECG Data Attestation: I personally reviewed and interpreted this ECG as follows: Indication: + weakness Rate (beats per minute): 75 Rhythm: + normal sinus ECG Intervals/blocks: + Right Bundle branch block and + Normal QT ECG [place]: + Normal ECG ST segments: + Nonspecific ST abnormalities Comparison ECG Date: from (07/08/2020) Change: no significant change MDM Narrative This is an elderly gentleman with known metastatic prostate cancer dealing with worsening pain and nausea. Patient has tried 2 different pain medications at home as well as Zofran which is not helping. at bedside reports minimal oral intake and she is concerned for accompanying dehydration. Patient given IV fluids, pain and nausea medication here. Basic labs checked as a precaution. No previously scheduled evaluation by pain management and no discussion yet for palliative care per their report. Due to failed outpatient treatment of his ongoing pain, worsening pain secondary to malignancy, as well as poor p.o. intake and dehydration, case discussed with hospitalist for additional evaluation and management. An order was placed for continuous cardiac monitoring. The monitor shows a rate of 86_ with normal sinus_ rhythm. Impression & Plan Prostate cancer, Nausea & vomiting, Acute dehydration, Back pain Discharge Plan Visit Data Chief Complaint: Pain (Generalized) Stated Complaint: CANCER, INTENSE PAIN ED Provider: Eliana Melara Discharge Problem: Prostate cancer, Nausea & vomiting, Acute dehydration, Back pain Patient Disposition: Admitted As Inpatient Discharge Instructions Interventions: ED Discharge Assessment Last Done: 07/20/20 19:07 Discharge Problem: Nausea & vomiting Qualifiers: Vomiting type: unspecified Vomiting Intractability: non-intractable Qualified Code(s): R11.2 - Nausea with vomiting, unspecified Back pain Qualifiers: Back pain location: back pain in unspecified location Chronicity: chronic Back pain laterality: unspecified Qualified Code(s): M54.9 - Dorsalgia, unspecified
--- NOTE | 2020-07-20 13:45 | Electrocardiogram Report ---
Test Reason : Blood Pressure : / mmHG Vent. Rate : 075 BPM Atrial Rate : 075 BPM P-R Int : 150 ms QRS Dur : 132 ms QT Int : 438 ms P-R-T Axes : 063 073 019 degrees QTc Int : 489 ms Normal sinus rhythm Possible Left atrial enlargement Right bundle branch block Abnormal ECG When compared with ECG of 08-JUL-2020 14:50, No significant change Confirmed by Domingo Chapin ([id number]) on 07/20/2020 1:45:10 PM Referred By: REFERRED SELF Confirmed By:Domingo Chapin
[2020-07-20 14:28] LABS: Basophils # (auto) 0.01 K/uL (0-0.2); Basophils % (auto) 0.1 %; Eosinophils # (auto) 0.01 K/uL (0-0.5); Eosinophils % (auto) 0.1 %; Hematocrit (blood only) 30.4 % (42-52); Hemoglobin 9.9 g/dL (14.0-18.0); Immature Granulocytes # (auto) 0.16 K/uL (0.00-0.02); Immature Granulocytes % (auto) 1.3 %; Lymphocytes # (auto) 1.36 K/uL (1.2-3.4); Lymphocytes % (auto) 11.4 %; Mean Corpuscular Hemoglobin 31.9 pg (25-34); Mean Corpuscular Hgb Conc 32.6 g/dL (32-36); Mean Corpuscular Volume 98.1 fL (80-100); Mean Platelet Volume 10.5 fL (7.4-10.4); Monocytes # (auto) 1.29 K/uL (0.11-0.59); Monocytes % (auto) 10.8 %; Neutrophils # (auto) 9.14 K/uL (1.4-6.5); Neutrophils % (auto) 76.3 %; Nucleated RBC # (auto) 0.21 K/uL (0-0); Nucleated RBC % (auto) 1.7 %; Platelet Count 147 K/uL (130-400); RDW Coefficient of Variation 17.2 % (11.5-14.5); RDW Standard Deviation 60.1 fL (36.4-46.3); White Blood Count 11.97 K/uL (4.8-10.8)
[2020-07-20 14:38] LABS: INR 1.2 (0.9-1.1); Prothrombin Time 12.6 Seconds (9.0-12.0)
[2020-07-20] MEDS: LACTATED RINGER'S 1,000 ML IV SCH ×2 (14:40→19:57)
[2020-07-20 14:44] LABS: Albumin Level 2.6 gm/dl (3.4-5.0); BUN Creatinine Ratio 28.9 (10-20); Blood Urea Nitrogen 25 mg/dl (7-18); Carbon Dioxide 22 mmol/L (21-32); Chloride 104 mmol/L (98-107); Est GFR (African American) 93.4; Est GFR (Non-African American) 80.6; Glucose 97 mg/dl (70-99); Magnesium 2.5 mg/dl (1.8-2.4); Potassium 4.5 mmol/L (3.5-5.1); Sodium 134 mmol/L (136-145)
[2020-07-20] MEDS ORDERED: HYDROmorphone INJ 0.5 MG/0.5 ML SYR IV STA (14:55)
[2020-07-20] MEDS ORDERED: ACETAMINOPHEN 1,000 MG/100 ML VIAL IV STA (14:55)
[2020-07-20 15:01] LABS: Alanine Aminotransferase 21 U/L (12-78); Albumin Globulin Ratio 0.7 (0.9-2); Alkaline Phosphatase 609 U/L (45-117); Aspartate Aminotransferase 202 U/L (15-37); Bilirubin,Total 0.8 mg/dl (0.2-1); Globulin 3.6 gm/dl (2.5-4.0); Total Protein 6.2 gm/dl (6.4-8.2); Troponin I < 0.015 ng/ml (0-0.045)
--- NOTE | 2020-07-20 16:24 | History & Physical Report ---
Date of Service July 20, 2020 Assessment & Plan (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 Will consult oncology to discuss whether ongoing treatment with Xtandi > risk of side effects. Difficult to control pain and nausea (likely both related to metastatic cancer) - patient currently appears mainly fatigued; already on Xgeva for bone pain. Will consult palliative care for further management. (2) Acute dehydration: Will continue slow IV fluids with NSS overnight (3) Generalized weakness: Low suspicion of spinal cord involvement given good power in his legs on exam although certainly at risk for this. Currently main pain is in his right knee -nonspecific and generalized along joint line. X-ray right knee to rule out fracture. (4) Nausea & vomiting: ?Constipation related versus iatrogenic versus metastatic disease. X-ray KUB to assess for dilated bowel loops + fecal loading Senna/docusate twice daily, MiraLAX twice daily (5) Aortic stenosis, moderate: Difficult to assess whether contributing (6) Severe protein-calorie malnutrition: Dietary consult (7) Celiac disease: Gluten-free diet Admission and Anticipated Discharge Date Admission Date: July 20, 2020 History of Present Illness Chief Complaint: Nausea, intractable pain Primary Care Provider: Pedro Abel MD Levi Brown is an 84-year-old male with stage IV prostate cancer who presents to the emergency room with generalized weakness, nausea, poor appetite, early satiety, back pain and right knee pain. The patient was here just 11 days previously with similar symptoms. He was diagnosed with constipation at the time received an enema with mild improvement of his symptoms and was subsequently discharged home. He reports main pain currently in his right knee which has been going on just for the last 3 days. Mostly when he walks, no pain at rest. No radicular pain from his back but also having severe back pain which has been ongoing and progressive for much longer. Regarding his nausea he reports early satiety and poor appetite which is progressively been getting worse over period of months with considerable weight loss during this time. He denies any change to his bowel habit but has been having increasing problems with constipation but reports a normal bowel movement yesterday. He denies any melena or bright red blood in stool. He is celiac and reports good compliance with a gluten-free diet. He denies any abdominal pain. Regarding his stage IV prostate cancer he reports switching from Zytiga to Xtandi 1 month ago. Does not feel this significantly worsened his nausea. He does report being on Xgeva once monthly and Lupron once monthly and thinks he is due this week. 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 Allergies Allergy/AdvReac Type Severity Reaction Status Date / Time gluten Allergy Intermediate rash Verified 07/20/20 14:06 Home Medications Medication Instructions Recorded Confirmed Type calcium carbonate 600 mg (1,500 2 tab PO QAM #0 01/23/19 07/20/20 History mg)-vitamin D3 200 unit tablet psyllium husk-calcium 1 gram-60 mg 2 cap PO QAM #0 ml 01/23/19 07/20/20 History capsule leuprolide (6 month) 45 mg 45 mg IM Q6MO ea 06/04/19 07/20/20 History intramuscular syringe kit vitamins A,C,L-tdwx-nukcve 7,160 1 tab PO BID 06/04/19 07/20/20 History unit-113 mg-100 unit tablet glucosamine sulfate 2KCl 500 mg 500 mg PO PM cap 07/25/19 07/20/20 History capsule abiraterone, submicronized 125 mg 500 mg PO QAM 12/26/19 07/20/20 History tablet alfuzosin 10 mg PO PM 02/07/20 07/20/20 History mecobal-levomefolat Ca-B6 phos 1 tab PO BID 02/07/20 07/20/20 History oxycodone 5 mg tablet 5 mg PO Q4H PRN #30 tab 05/01/20 07/20/20 Rx pantoprazole 20 mg tablet,delayed 20 mg PO DAILY #90 tab 05/04/20 07/20/20 Rx release furosemide 20 mg tablet 20 mg PO DAILY PRN #14 tab 06/22/20 07/20/20 Rx omeprazole 20 mg PO DAILY #30 tab 07/08/20 07/20/20 Rx ondansetron 8 mg PO Q8H PRN 15 Days #45 tab 07/08/20 07/20/20 Rx hydrocodone-acetaminophen 10 ml PO Q6H PRN #250 ml 07/10/20 07/20/20 Rx Past Med/Surg History Medical History Anemia Aortic stenosis, moderate Per most recent echo, severe with valve area 0.9 and pressure grad 27mmHg Celiac disease GERD (gastroesophageal reflux disease) Hemorrhoids History of GI bleed Hx of Lyme disease Immune thrombocytopenia Interstitial lung disease per chest CT 02/15/2018 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, lower lumbar, brain Prostate cancer (2007) "Adenocarcinoma the prostate presenting PSA 1.0, clinical stage T2 [id number] Status post biopsies, Tony grade 3+3, biopsy stage [id number] Status post seed implant for cesium 131 on 01/08/2008 received 8500 cGy Status post completion of radiation therapy with IMRT/IGRT completed 04/11/2008 received 4500 cGy" brachy therapy and radiation Recurrent inguinal hernia of right side with obstruction Thrombocytopenia Surgical History H/O splenectomy History of colonoscopy (12/23/19) Evidence of radiation proctitis, advised treatment with sucralfate enema 2 g b.i.d. x1 month, Dr. Beau Hughes, Sana Zavala History of esophagogastroduodenoscopy (EGD) (12/23/19) Dr. Beau Hughes, Sana Zavala, hiatal hernia noted, otherwise unremarkable Hx of tonsillectomy S/P inguinal hernia repair Right IHR with small bowel resection 06/2016 Family History Father Myocardial infarction Mother , age 82 - cause uncertain No problems noted. Denies family history of Prostate cancer Social History Smoking Status: Former smoker Age Started Using Tobacco: 19; Age Quit Using Tobacco: 46; packs per day: 0.5; Years Smoked: 27; Cigarettes Per Day: 10; Number of Years Since Quit: 37; Hx Alcohol Use: Yes Alcohol type: wine Alcohol type Comment: 3-6oz/day Hx Substance Use: No Preferred Language: Lithuanian Communication Ability: Effective Visual Impairment: No Limitations Hearing Ability: Use of Hearing Aid Educational Adviser Required: No Beliefs That Will Affect Care: None marital status: Current Living Situation: Spouse Current Living Situation Comment: lives in [place]; has been twice; multiple kids current occupational status: retired 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 [employer] Other Information That Helps Us Care for You: No Feels Safe at Home: Yes Safety Concerns: Feels Safe At This Time Dental Care, Regularly: Yes Seatbelt Use: always Sunscreen Use: Yes Assistive Devices: Denture - Upper, Denture - Lower, Glasses and Hearing Aid - Bilateral Review of Systems Review of Systems: All systems reviewed & are unremarkable except as noted in HPI & below Constitutional: + fatigue, + weakness and + weight loss Eyes: no problem reported Cardiovascular: no chest pain Gastrointestinal: + early satiety, + nausea and + constipation; no abdominal pain, no heartburn, no dysphagia, no blood in stools and no melena Musculoskeletal: + back pain and + joint pain (Right knee); no radicular pain Physical Exam Constitutional: + acute distress (Pain in right knee) and + cachectic; + not well nourished Eyes: + anicteric sclerae; normal pupil size ENMT: Ears: no external ear abnormality Nose: no external nose abnormality Mouth: + dry oral mucous membranes Neck: trachea midline Respiratory: normal respiratory effort, lungs clear to auscultation Cardiovascular: RRR, no murmur, no edema Gastrointestinal (Abdomen): Inspection/Auscultation: + hypoactive bowel sounds Percussion/Palpation: abdomen soft; abdomen nontender, no guarding and abdomen not rigid Musculoskeletal: no cyanosis or clubbing, extremities motor strength 5/5 Skin: no rashes, warm and dry Neurologic: moves all extremities and awake; not confused Motor/Sensory: no sensory deficit Psychiatric: A+Ox3, euthymic affect Results & Data Results & Data ([facility]) Vital Signs (Past 12 Hours) Vital Signs Temp Pulse Resp BP Pulse Ox 07/20/20 16:00 84 14 96 07/20/20 15:30 81 14 07/20/20 15:03 75 16 07/20/20 14:59 77 20 136/70 07/20/20 12:48 36.3 C L 84 16 123/76 98 Medications Administered ER medications given: LR 1L @250 mL/h Compazine 5 mg IV Benadryl 12.5 mg IV Acetaminophen 1 g IV Dilaudid 0.5 mg IV ECG Rate (beats per minute): 75 Rhythm: normal sinus Findings: + RBBB Comparison ECG Date: from (July 08, 2020) Change: no significant change Code Status & VTE Plan Code Status DNR/DNI as discussed with the patient and his at bedside VTE Prophylaxis Plan VTE Prophylaxis will be ordered: No Reason for no VTE drug order: Treatment not indicated (Moving towards a more palliative approach) PG Care Time/CCT Total # of Minutes Spent Total Time Spent with Patient: Total time spent is greater than 50% in coordination of care (as documented) at patient's floor/unit and/or counseling patient: Coding Level of Care Code 89479 Initial Inpt Care Lvl 3 Diagnoses Prostate cancer metastatic to bone C61; C79.51 Acute dehydration E86.0 Generalized weakness R53.1 Nausea & vomiting R11.2 Vomiting Intractability: non-intractable Vomiting type: unspecified Aortic stenosis, moderate I35.0 Severe protein-calorie malnutrition E43 Celiac disease K90.0 (1) Nausea & vomiting Vomiting Intractability: non-intractable Vomiting type: unspecified Qualified Code(s): R11.2 - Nausea with vomiting, unspecified
--- NOTE | 2020-07-20 17:00 | XRay Report ---
XR knee RT 1 or 2V routine HISTORY: 84 years-old Male Right knee pain, metastatic ca. Acute right-sided knee pain COMPARISON: Bone scan 11/13/2019 TECHNIQUE: 3 views of the right knee FINDINGS: Mild medial patellofemoral compartment osteoarthritis. Mild medial soft tissue swelling. Small joint effusion. No acute fracture, dislocation or opaque foreign body. No definite osteoblastic metastasis. Arterial calcifications. IMPRESSION: 1. No acute fracture, dislocation or suspicious bone lesion. 2. Small joint effusion. ACT 112: Negative or not required by law. The above report was generated using voice recognition software. It may contain grammatical, syntax o r spelling errors. Electronically signed by: Kevon Kim M.D. 07/20/2020 4:59 PM
--- NOTE | 2020-07-20 17:02 | XRay Report ---
KUB HISTORY: Acute nausea and vomiting Nausea/vomiting, assess for SBO/fecal impaction COMPARISON: KUB 07/08/2020 FINDINGS: Moderate fecal retention and improved from comparison. Nonobstructive bowel gas pattern. No definite urolith. Renal shadows are obscured by bowel gas. Osteoblastic metastatic disease. Brachytherapy seed s of the prostate. Lumbar levoscoliosis. IMPRESSION: 1. Moderate fecal retention has mildly improved from comparison. 2. Nonobstructive bowel gas pattern. 3. Multifocal osteoblastic metastatic disease. ACT 112: Negative or not required by law. The above report was generated using voice recognition software. It may contain grammatical, syntax o r spelling errors. Electronically signed by: Kevon Kim M.D. 07/20/2020 5:01 PM
[2020-07-20] MEDS ORDERED: ACETAMINOPHEN 325 MG TAB PO PRN (19:33)
[2020-07-20] MEDS ORDERED: ALUMINUM/MAGNESIUM SUSP 30 ML UDC PO PRN (19:33)
[2020-07-20] MEDS ORDERED: ONDANSETRON INJ 2 MG/ML 2 ML VIAL IV PRN (19:33)
[2020-07-20] MEDS: ALFUZOSIN HCL 10 MG TAB PO SCH (20:20)
[2020-07-20] MEDS: CEROVITE ADV FORMULA TAB PO SCH (20:21)
[2020-07-20] MEDS: POLYETHYLENE (MIRALAX) 17 GM PACK PO SCH (20:50)
[2020-07-20] MEDS ORDERED: GLUCOSAMINE SULFATE 500 MG PO SCH (21:00)
[2020-07-20] MEDS ORDERED: [UNRECOGNIZED DRUG - OTHER] PO SCH (21:00)
[2020-07-20] MEDS: DOCUSATE SODIUM/SENNA 50/8.6MG TAB PO SCH (22:00)
[2020-07-20] MEDS: SODIUM CHLORIDE 0.9% 1000ML 1,000 ML IV SCH (22:41)
[2020-07-21] MEDS: HYDROmorphone INJ 0.5 MG/0.5 ML SYR IV PRN ×4 (02:03→22:52)
[2020-07-21] MEDS: CALCIUM 600MG + VIT D 400 IU TAB PO SCH (08:00)
[2020-07-21] MEDS: PANTOprazole 40 MG TAB PO SCH (08:01)
[2020-07-21] MEDS: PSYLLIUM 58.6% POWDER PACKET PO SCH ×2 (08:01→08:04)
[2020-07-21] MEDS: CEROVITE ADV FORMULA TAB PO SCH ×2 (08:01→21:32)
[2020-07-21] MEDS: DOCUSATE SODIUM/SENNA 50/8.6MG TAB PO SCH ×2 (08:01→21:02)
[2020-07-21] MEDS: POLYETHYLENE (MIRALAX) 17 GM PACK PO SCH ×2 (08:01→21:02)
[2020-07-21] MEDS: SODIUM CHLORIDE 0.9% 1000ML 1,000 ML IV SCH ×2 (08:39→18:40)
[2020-07-21] MEDS: dexAMETHasone 6 MG in SYRINGE 0 ML IV SCH (11:02)
--- NOTE | 2020-07-21 13:30 | Consultation Report ---
DATE OF CONSULTATION: 07/21/2020 MEDICAL ONCOLOGY CONSULTATION REASON FOR CONSULTATION: An 84-year-old gentleman with history of metastatic prostate cancer, admitted for nausea and intractable pain. HISTORY OF PRESENT ILLNESS: The patient is a very pleasant, somewhat complicated 84-year-old gentleman who presented to [facility] complaining of generalized weakness, nausea, anorexia, early satiety, back pain and right knee pain. Levi apparently was admitted a little over a week ago for similar symptomatology. As I previously stated, Levi is somewhat complicated not only suffering from hormone responsive metastatic prostate cancer, but also labile idiopathic thrombocytopenic purpura. Levi receives Nplate on a weekly basis at varying doses depending on response. As for prostate cancer, he was previously treated with total androgen blockades, subsequently switched to Zytiga, on which unfortunately he continued to progress. In the past couple of months, he was started on Xtandi. I had last seen Levi in the office 2 days before [place], at which time he was struggling with side effects associated with current treatment. Levi also receives monthly bisphosphonate therapy. This gentleman's PSA continues to rise, presently measuring 165. His last measurement on 06/16 was 97.4. Despite his ongoing difficulties, Levi admits to being compliant with therapy and therefore, I have to conclude his disease is progressing and I need to consider a therapeutic change moving forward. PAST MEDICAL HISTORY: Positive for ITP, aortic stenosis, celiac disease, gastroesophageal reflux disease, history of gastrointestinal bleeding, interstitial lung disease, original diagnosis of prostate cancer established in 2007. PAST SURGICAL HISTORY: Status post splenectomy, history of colonoscopy, tonsillectomy, inguinal hernia repair. MEDICATIONS: Include calcium carbonate 600 mg 2 tablets p.o. q.a.m., psyllium husk calcium 2 capsules p.o. q.a.m., leuprolide 45 mg IM q.6 months, multivitamin 1 tablet p.o. b.i.d., glucosamine sulfate 500 mg p.o. daily, alfuzosin 10 mg p.o. q.a.m., mecobal/levomefolat 1 tablet p.o. b.i.d., oxycodone 5 mg p.o. q.4 hours, Protonix 20 mg p.o. daily, furosemide 20 mg p.o. daily, omeprazole 20 mg p.o. daily, Zofran 8 mg p.o. q.8 hours, hydrocodone/acetaminophen 10 mL p.o. q.6 hours p.r.n. ALLERGIES: GLUTEN. FAMILY HISTORY: Father of myocardial infarction. Mother at age 82, cause uncertain. SOCIAL HISTORY: The patient resides with his . He is retired. He is a nondrinker, was a prior smoker for 27 years plus. REVIEW OF SYSTEMS: CONSTITUTIONAL: As per HPI, most notably for overall clinical decline, anorexia, early satiety, nausea and vomiting, generalized weakness. SKIN: No rashes or lesions. No history of dermatoses. HEENT: Denies headaches, lightheadedness or dizziness. No dysphagia or sore throat. LYMPHATICS: No history of lymphoproliferative disease. CARDIAC: Positive for aortic stenosis. No current angina or palpitations. PULMONARY: Negative for COPD. He is not short of breath, dyspneic or orthopneic. No cough or hemoptysis. GASTROINTESTINAL: Negative for abdominal pain. Positive for nausea and vomiting. Positive for constipation. No hematochezia, melena or isacc rectal bleeding. GENITOURINARY: Positive history of prostate cancer. Negative for hematuria, dysuria, or urinary incontinence. MUSCULOSKELETAL: Positive for back pain. ENDOCRINE: Negative for diabetes or thyroid disease. NEUROLOGIC: Negative for seizure, stroke, or migraine headache. HEMATOLOGIC: Positive for anemia, mild leukocytosis and history of ITP, currently on Nplate. PHYSICAL EXAMINATION: GENERAL: Very pleasant 84-year-old gentleman, awake, alert and appropriate, in no acute distress. VITAL SIGNS: Temperature 36.6, pulse 87, respiratory rate 18, blood pressure 129/67. SKIN: Warm, dry, noncyanotic without petechia, rash or ecchymosis. HEENT: Head is atraumatic, normocephalic. Eyes: PERRLA, EOMI. Sclerae nonicteric. No conjunctival injection. Nares are patent without rhinorrhea or discharge. Throat is clear. Tongue is midline. Mucous membranes are moist. NECK: Supple without JVD or thyromegaly. LYMPHATICS: No cervical, supraclavicular, axillary or inguinal palpable nodes. HEART: Holosystolic murmur, high pitched, heard in the left precordium II/. LUNGS: Clear to auscultation bilaterally. ABDOMEN: Soft, nontender, nondistended. EXTREMITIES: No clubbing, cyanosis or edema. NEUROLOGICAL: Awake, alert and oriented x3. Cranial nerves grossly intact. Nonfocal examination otherwise. LABORATORY DATA: WBC count 11,970, hemoglobin 9.9, platelet count 147,000. Sodium 134, potassium 4.5, chloride 104, carbon dioxide 22, creatinine 0.85, BUN 25, magnesium 2.5, calcium 8, AST 202, alkaline phosphatase 609. Albumin 2.6. PSA 165. RADIOGRAPHIC DATA: KUB done on admission, moderate fecal retention has mildly improved in comparison from 06/2020, nonobstructive bowel gas pattern. IMPRESSION: 1. Intractable nausea and vomiting. 2. Progressing hormone responsive metastatic prostate cancer. 3. Anemia of chronic disease. 4. Idiopathic thrombocytopenic purpura. 5. Anorexia. 6. Hypoalbuminemia. PLAN: In summary, Levi Brown Jr. has been a patient at [facility] for many years, previously managed by Dr. Martinez, more recently by myself. This gentleman suffers from concurrent labile ITP and metastatic hormone receptive prostate cancer. He has had a couple of therapeutic changes here. As of late, his disease does not seem to be responding to Xtandi, which has also been poorly tolerated unfortunately. For now, we need to support him systemically, improve on his appetite and perhaps start him on low-dose Marinol versus Megace. Daily prednisone 10-20 mg is effective as well. Unfortunately, therapeutic options are limited, but may entertain weekly Taxotere. However, his intolerance to Xtandi makes this option less attractive. Nonetheless, we can certainly modify doses to tolerance moving forward. Levi receives Nplate q. weekly at [facility]. He will be due tomorrow. We will try to administer while inhouse. Agree with medical management overall. Goals of admission are adequate pain control, appetite stimulation, and limited physical therapy to gain strength to prepare for discharge. We will make arrangements to see Levi in the office upon discharge. Thank you very much for allowing me to participate in his care. [facility]ENTER[facility]cha
[2020-07-21] MEDS ORDERED: HALOPERIDOL ORAL SOLN 2 MG/ML PO PRN (14:56)
--- NOTE | 2020-07-21 15:00 | Palliative Care Consultation ---
Date of Consultation July 21, 2020 Assessment & Plan (1) Back pain: With bony metastases. Would consider dexamethasone for bone pain. Continue prn IV hydromorphone. We can adjust to oral regimen for home based on use with steroids on board. (2) Nausea & vomiting: Refractory to odansetron. Could be related on constipation, medications. He has difficulty swallowing pills and does not like zofran odt. Will trial haldol liquid concentrate as needed and monitor. May need low dose routine dosing. Vomiting Intractability: non-intractable Vomiting type: unspecified Qualified Code(s): R11.2 - Nausea with vomiting, unspecified (3) Constipation: On miralax. He has multiple calcium supplements and low serum calcium. His po intake is poor which may be counterproductive for metamucil. Will d/c metamucil and monitor. He is also on miralax. Constipation type: slow transit constipation Qualified Code(s): K59.01 - Slow transit constipation (4) Palliative care encounter: I had a 40 minute conversation with Mr Brown who is feeling very discouraged with his symptom burden and cancer progression. He is discussing other options for treatment with Dr. Easton but admits that there is no cure for his cancer. "I know what's going to happen and I'm not afraid". He has strong jyothi which has been a big support for him. He is grieving the loss of his f ormer, active life and frustrated with symptoms. We reviewed options for symptom management and will follow for monitoring and support. I did speak with his by phone. She is tearful and says that she and "Jm" have talked about his prognosis and accept that. She has strong family support. (5) Prostate cancer metastatic to bone: History of Present Illness Reason for Consultation: symptom management Requesting Physician: Dr. Ramesh Attending Physician: Emiliano Qureshi History of Present Illness 84 yo gentleman with prostate cancer originally diagnosed in 2007. He had brachtherapy and external radiation therapy and had been doing well until 2018. He had disease progression and currently has extensive bony metastases, including ribs, lumbar spine and skull. He has had progressively elevated PSA despite multiple therapies and is also being treated for ITP. He has had severe pain in the small of his back with no particular triggers. He gets mild relief with topical OTC analgesics but has not had significant relief with hydrocodone/APAP that he has been taking at home. He has received IV hydromorphone in the hospital which has been more effective. He has also c/o pain in his right knee. Xray did not show metastatic disease. He denies swelling, stiffness or previous injury. His analgesic treatment has also been complicated by persistent nausea and severe constipation and he has had ER visit for fecal impaction. His po intake has been poor and he has had functional decline which is very disturbing for him. Allergies Allergy/AdvReac Type Severity Reaction Status Date / Time gluten Allergy Intermediate rash Verified 07/20/20 14:06 Home Medications Medication Instructions Recorded Confirmed Type calcium carbonate 600 mg (1,500 2 tab PO QAM #0 01/23/19 07/20/20 History mg)-vitamin D3 200 unit tablet psyllium husk-calcium 1 gram-60 mg 2 cap PO QAM #0 ml 01/23/19 07/20/20 History capsule leuprolide (6 month) 45 mg 45 mg IM Q6MO ea 06/04/19 07/20/20 History intramuscular syringe kit vitamins A,C,U-kiac-vxaqkz 7,160 1 tab PO BID 06/04/19 07/20/20 History unit-113 mg-100 unit tablet glucosamine sulfate 2KCl 500 mg 500 mg PO PM cap 07/25/19 07/20/20 History capsule abiraterone, submicronized 125 mg 500 mg PO QAM 12/26/19 07/20/20 History tablet alfuzosin 10 mg PO PM 02/07/20 07/20/20 History mecobal-levomefolat Ca-B6 phos 1 tab PO BID 02/07/20 07/20/20 History oxycodone 5 mg tablet 5 mg PO Q4H PRN #30 tab 05/01/20 07/20/20 Rx pantoprazole 20 mg tablet,delayed 20 mg PO DAILY #90 tab 05/04/20 07/20/20 Rx release furosemide 20 mg tablet 20 mg PO DAILY PRN #14 tab 06/22/20 07/20/20 Rx omeprazole 20 mg PO DAILY #30 tab 07/08/20 07/20/20 Rx ondansetron 8 mg PO Q8H PRN 15 Days #45 tab 07/08/20 07/20/20 Rx hydrocodone-acetaminophen 10 ml PO Q6H PRN #250 ml 07/10/20 07/20/20 Rx Patient History Medical History Anemia Aortic stenosis, moderate Per most recent echo, severe with valve area 0.9 and pressure grad 27mmHg Celiac disease GERD (gastroesophageal reflux disease) Hemorrhoids History of GI bleed Hx of Lyme disease Immune thrombocytopenia Interstitial lung disease per chest CT 02/15/2018 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, lower lumbar, brain Prostate cancer (2007) "Adenocarcinoma the prostate presenting PSA 1.0, clinical stage T2 [id number] Status post biopsies, [place] grade 3+3, biopsy stage [id number] Status post seed implant for cesium 131 on 01/08/2008 received 8500 cGy Status post completion of radiation therapy with IMRT/IGRT completed 04/11/2008 received 4500 cGy" brachy therapy and radiation Recurrent inguinal hernia of right side with obstruction Thrombocytopenia Surgical History H/O splenectomy History of colonoscopy (12/23/19) Evidence of radiation proctitis, advised treatment with sucralfate enema 2 g b.i.d. x1 month, Dr. Beau Hughes, Sana Zavala History of esophagogastroduodenoscopy (EGD) (12/23/19) Sana Gregorio, hiatal hernia noted, otherwise unr emarkable Hx of tonsillectomy S/P inguinal hernia repair Right IHR with small bowel resection 06/2016 Family History Father Myocardial infarction Mother , age 82 - cause uncertain No problems noted. Denies family history of Prostate cancer Social History Smoking Status: Former smoker Age Started Using Tobacco: 19; Age Quit Using Tobacco: 46; packs per day: 0.5; Years Smoked: 27; Cigarettes Per Day: 10; Number of Years Since Quit: 37; Hx Alcohol Use: Yes Alcohol type: wine Alcohol type Comment: 3-6oz/day Hx Substance Use: No Preferred Language: Maltese Communication Ability: Effective Visual Impairment: No Limitations Hearing Ability: Use of Hearing Aid Lead Nitrate Processor Required: No Beliefs That Will Affect Care: None marital status: Current Living Situation: Spouse Current Living Situation Comment: lives in [place]; has been twice; multiple kids current occupational status: retired 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 [employer] Other Information That Helps Us Care for You: No Feels Safe at Home: Yes Safety Concerns: Feels Safe At This Time Dental Care, Regularly: Yes Seatbelt Use: always Sunscreen Use: Yes Assistive Devices: Denture - Upper, Denture - Lower, Glasses and Hearing Aid - Bilateral Review of Systems Review of Systems: [place] Symptom Assessment Scale Pain 3/3 Nausea 2/3 Dyspnea 0/3 Anxiety 1/3 Fatigue 2/3 Anorexia 2/3 Palliative Performance Score 50% Physical Exam Constitutional: + thin and + frail appearing ENMT: Mouth: + dry oral mucous membranes Respiratory: normal respiratory effort; no labored breathing Gastrointestinal (Abdomen): Inspection/Auscultation: abdomen not distended Percussion/Palpation: abdomen nontender Musculoskeletal: Extremities: + muscle atrophy Skin: pale, warm and dry Neurologic: awake; no focal motor deficits and not confused Psychiatric: Orientation: alert and oriented x 3 Results & Data ([facility]) Vital Signs (Past 12 Hours) Vital Signs Temp Pulse Resp BP Pulse Ox 07/21/20 11:04 97.9 F 82 16 147/74 H 95 07/21/20 07:54 97.7 F 82 16 143/71 H 97 07/21/20 03:10 97.9 F 87 18 129/67 97 PG Care Time/CCT Total # of Minutes Spent Total Time Spent with Patient: Total time spent is greater than 50% in coordination of care (as documented) at patient's floor/unit and/or counseling patient: Total time spent 75 minutes with more than 50% of time spent on symptom management, goals of care, support and coordination with Dr. Qureshi. Coding Level of Care Code 50663 Inpt Consult Level 4 Diagnoses Back pain M54.9 Nausea & vomiting R11.2 Vomiting Intractability: non-intractable Vomiting type: unspecified Constipation K59.01 Constipation type: slow transit constipation Palliative care encounter Z51.5 Prostate cancer metastatic to bone C61; C79.51
--- NOTE | 2020-07-21 16:20 | Hospitalist Progress Note ---
Date of Service July 21, 2020 Assessment & Plan (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 Increasing bone mets despite treatment. Dr Eastno consulted from oncology to discuss whether ongoing treatment with Xtandi should continue. Palliative care consult appreciated. For bone pain add dexamethasone 6mg IV daily. Can ultimately wean to 4mg or 2mg daily. Would use indefinitely especially since we are headed in palliative direction. Cont hydrocodone prn. Cont dilaudid prn. Haldol or zofran prn N/V. (2) Acute dehydration: Continue NSS. Repeat BMP am. (3) Generalized weakness: Suspect due to advanced prostate cancer, dehydration, poor appetite/malnutrition. Can't rule out depression either. Treat pain. Supportive care. Hopefully steroids will help weakness and appetite. (4) Nausea & vomiting: Could be due to opiate-induced constipation. Can't rule out gastritis. PPI for upper GI. Miralax, senna, colace for bowel regimen. Consider relistor if stools do not improve with above. (5) Aortic stenosis, moderate: Doubt contributing to symptoms/presentation. (6) Severe protein-calorie malnutrition: 2nd to advanced cancer. Hopefully steroids will help appetite a bit. (7) Celiac disease: Gluten-free diet (8) Back pain: Lidoderm patches K-pad heat [place] prn Dilaudid prn Steroids daily 2nd bone mets (9) Shoulder pain, left: suspect radicular pain from c-spine and/or bone pain from mets either way continue pain meds listed above (10) H/O splenectomy: noted platelets wnl (11) Candidiasis of mouth and esophagus: nystatin 5cc qid (12) DVT prophylaxis: lovenox 40mg daily - high risk of VTE updated by phone this evening care d/w Dr Jones from palliative Admission and Anticipated Discharge Date Admission Date: July 20, 2020 Subjective patient states he feels better with the steroids given this am left shoulder/arm pain, back pain, right posterior leg pain, and right knee pain all improved he was actually able to get some sleep this afternoon because he was more comfortable pain-gallagher no nausea during my visit no emesis appetite poor he admits to significant weight loss in the last year - could not tell me how much updated pt's by phone today she is hoping to talk with Dr Easton at some point Review of Systems Constitutional: no fever Respiratory: no dyspnea Cardiovascular: no chest pain Gastrointestinal: no abdominal pain Physical Exam Constitutional: + ill appearing, + thin and + frail appearing; no acute distress and no altered mental status ENMT: Mouth: + oral mucosal abnormality (?thrush) and + dry oral mucous membranes Respiratory: normal respiratory effort, lungs clear to auscultation Cardiovascular: Rate/Rhythm: regular rate and regular rhythm Heart Sounds: normal S1, normal S2 and + murmur (2-3/6 systolic heard RUSB/apex) Vessels: posterior tibial pulses present and dorsalis pedis pulses present; no JVD Extremities: no edema Gastrointestinal (Abdomen): normal bowel sounds, soft, nontender, no hepatosplenomegaly Musculoskeletal: tender to palpation over l-spine spinous processes; mild paraspinal tenderness on right in lumbar region; right knee with mild joint effusion and minimal warmth but no redness; left shoulder - no tenderness with passive ROM; no subacromial bursal pain Psychiatric: Orientation: alert and oriented x 3 Affect: + flat affect Results & Data Results & Data ([facility]) Vital Signs (Past 12 Hours) Vital Signs Temp Pulse Resp BP Pulse Ox 07/21/20 11:04 36.6 C 82 16 147/74 H 95 07/21/20 07:54 36.5 C 82 16 143/71 H 97 Laboratory Results Laboratory Results - last 24 hr 07/20/20 07/20/20 07/20/20 17:00 17:25 17:25 [facility]19 [facility], RNA, NAAT NEGATIVE Cancelled PG Care Time/CCT Total # of Minutes Spent Total Time Spent with Patient: Total time spent is greater than 50% in coordination of care (as documented) at patient's floor/unit and/or counseling patient: Coding Level of Care Code 71804 Subseq Hosp Care Lvl 3 Diagnoses Prostate cancer metastatic to bone C61; C79.51 Acute dehydration E86.0 Generalized weakness R53.1 Nausea & vomiting R11.2 Vomiting Intractability: non-intractable Vomiting type: unspecified Aortic stenosis, moderate I35.0 Severe protein-calorie malnutrition E43 Celiac disease K90.0 Back pain M54.9; G89.29 Back pain laterality: unspecified Back pain location: back pain in unspecified location Chronicity: chronic Shoulder pain, left M25.512 H/O splenectomy Z90.81 Candidiasis of mouth and esophagus B37.81; B37.0 DVT prophylaxis Z29.9 (1) Nausea & vomiting Vomiting Intractability: non-intractable Vomiting type: unspecified Qualified Code(s): R11.2 - Nausea with vomiting, unspecified (2) Back pain Back pain laterality: unspecified Back pain location: back pain in unspecified location Chronicity: chronic Qualified Code(s): M54.9 - Dorsalgia, unspecified; G89.29 - Other chronic pain
[2020-07-21] MEDS: LIDOCAINE 5% 1 PATCH TD SCH (17:24)
[2020-07-21] MEDS: NYSTATIN SUSP 500,000 U/5 ML UDC PO SCH ×2 (17:25→21:01)
[2020-07-21] MEDS: DICLOFENAC SOD 1% GEL 100 GM TUBE EXT SCH ×2 (17:25→21:01)
[2020-07-21] MEDS: ALFUZOSIN HCL 10 MG TAB PO SCH (21:32)
[2020-07-22] MEDS: HYDROmorphone INJ 0.5 MG/0.5 ML SYR IV PRN ×3 (05:55→20:19)
[2020-07-22 06:53] LABS: BUN Creatinine Ratio 24.9 (10-20); Calcium 7.3 mg/dl (8.5-10.1); Creatinine Clr Calc Pharmacy 64.4 ml/min; Est GFR (Non-African American) 86.3; Potassium 4.5 mmol/L (3.5-5.1)
[2020-07-22] MEDS: CEROVITE ADV FORMULA TAB PO SCH ×2 (08:19→20:23)
[2020-07-22] MEDS: LIDOCAINE 5% 1 PATCH TD SCH (08:20)
[2020-07-22] MEDS: DICLOFENAC SOD 1% GEL 100 GM TUBE EXT SCH ×4 (08:20→19:14)
[2020-07-22] MEDS: POLYETHYLENE (MIRALAX) 17 GM PACK PO SCH ×2 (08:20→20:21)
[2020-07-22] MEDS: NYSTATIN SUSP 500,000 U/5 ML UDC PO SCH ×4 (08:20→20:20)
[2020-07-22] MEDS: dexAMETHasone 6 MG in SYRINGE 0 ML IV SCH (08:21)
[2020-07-22] MEDS: PANTOprazole 40 MG TAB PO SCH (08:21)
[2020-07-22] MEDS: CALCIUM 600MG + VIT D 400 IU TAB PO SCH (08:21)
[2020-07-22] MEDS: DOCUSATE SODIUM/SENNA 50/8.6MG TAB PO SCH ×2 (08:21→20:22)
[2020-07-22] MEDS: ENOXAPARIN INJ 40 MG/0.4 ML SYR SQ SCH (08:57)
[2020-07-22] MEDS ORDERED: romiPLOStim 125 MCG VIAL SQ ONE (11:00)
[2020-07-22] MEDS: MEGESTROL ACETATE 40 MG TAB PO SCH (12:24)
--- NOTE | 2020-07-22 14:02 | Hospitalist Progress Note ---
Date of Service July 22, 2020 Assessment & Plan (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 Increasing bone mets despite treatment. Dr Easton consult appreciated. Nuclear medicine bone scan ordered. Palliative care consult appreciated. For bone pain , added dexamethasone 6mg IV daily. Can ultimately wean to 4mg or 2mg daily. Cont hydrocodone prn. Cont dilaudid prn. Haldol or zofran prn N/V. (2) Acute dehydration: Continue IV hydration Serial labs (3) Generalized weakness: due to advanced prostate cancer, dehydration, poor appetite/malnutrition Treat pain. Supportive care. Hopefully steroids will help weakness and appetite. (4) Nausea & vomiting: Could be due to opiate-induced constipation. Can't rule out gastritis. PPI for upper GI. Miralax, senna, colace for bowel regimen. Consider relistor if stools do not improve with above. (5) Aortic stenosis, moderate: Doubt contributing to symptoms/presentation. (6) Severe protein-calorie malnutrition: 2nd to advanced cancer. Hopefully steroids will help appetite a bit. Megestrol started today, Jul 22 (7) Celiac disease: Gluten-free diet (8) Back pain: Lidoderm patches K-pad heat [place] prn Dilaudid prn Steroids daily 2nd bone mets (9) Shoulder pain, left: suspect radicular pain from c-spine and/or bone pain from mets either way continue pain meds listed above (10) H/O splenectomy: noted platelets wnl (11) Candidiasis of mouth and esophagus: nystatin 5cc qid (12) DVT prophylaxis: lovenox 40mg daily - high risk of VTE Disposition: To be determined. Case management involvement requested. Care d/w Dr Jones from palliative Admission and Anticipated Discharge Date Admission Date: July 20, 2020 Subjective Alert and oriented. Pain is now fairly well controlled. Case discussed with oncology, Dr. Kamara. Nuclear medicine bone scan ordered. He will receive his N plate medication for ITP today. Megestrol added for appetite benefit. Review of Systems Review of Systems: Constitutional-no fever or chills ENT-no blurred vision, no double vision, no epistaxis, no sore throat Respiratory-no cough, no wheezing, no shortness of breath Cardiac-no palpitations, no chest pain, no syncope GI-no nausea, vomiting, diarrhea, melena, hematochezia -no urinary retention, no urinary incontinence, no dysuria, no hematuria Musculoskeletal-no joint pain, no muscle tenderness. Persistent back spine d iscomfort. Generalized weakness Skin-no bruising, no rashes, no pruritus Neuro-no isolated weakness, no paresthesia, no weakness Psych-no depression, no anxiety Physical Exam Physical Exam: General-alert and oriented x3, no fevers, no chills HEENT-head atraumatic and normocephalic, TMs intact bilaterally, pupils equal and reactive to light, extraocular muscles intact Neck-no lymphadenopathy or thyromegaly, trachea midline Chest-clear to auscultation percussion. No rales wheezing or rhonchi Cardiac-regular rate and rhythm, normal S1 and S2, no murmurs Abdomen-normal bowel sounds, nontender, no hepatosplenomegaly Extremities-no cyanosis, clubbing, or edema Neuro-cranial nerves II through XII intact, motor and sensory function within normal limits, generalized weakness, no focal deficits Psych-normal affect, normal mood Skinpallor noted Results & Data Results & Data ([facility]) Vital Signs (Past 12 Hours) Vital Signs Temp Pulse Resp BP Pulse Ox 07/22/20 12:18 36.2 C L 83 16 137/75 96 07/22/20 07:45 36.4 C L 84 16 133/63 97 07/22/20 03:29 37.0 C 88 18 118/61 94 Laboratory Results 07/20/20 14:07 07/22/20 05:46 PG Care Time/CCT Total # of Minutes Spent Total Time Spent with Patient: Total time spent is greater than 50% in coordination of care (as documented) at patient's floor/unit and/or counseling patient: Coding Level of Care Code 41278 Subseq Hosp Care Lvl 3 Diagnoses Prostate cancer metastatic to bone C61; C79.51 Acute dehydration E86.0 Generalized weakness R53.1 Nausea & vomiting R11.2 Vomiting Intractability: non-intractable Vomiting type: unspecified Aortic stenosis, moderate I35.0 Severe protein-calorie malnutrition E43 Celiac disease K90.0 Back pain M54.9; G89.29 Back pain laterality: unspecified Back pain location: back pain in unspecified location Chronicity: chronic Shoulder pain, left M25.512 H/O splenectomy Z90.81 Candidiasis of mouth and esophagus B37.81; B37.0 DVT prophylaxis Z29.9 (1) Nausea & vomiting Vomiting Intractability: non-intractable Vomiting type: unspecified Qualified Code(s): R11.2 - Nausea with vomiting, unspecified (2) Back pain Back pain laterality: unspecified Back pain location: back pain in unspeci fied location Chronicity: chronic Qualified Code(s): M54.9 - Dorsalgia, unspecified; G89.29 - Other chronic pain
--- NOTE | 2020-07-22 16:15 | Palliative Care Progress Note ---
Date of Service July 22, 2020 Assessment & Plan (1) Back pain: With bone metatstases. Improved with dexamethasone. Hydrocodone had been ineffective at home so that was discontinued. Continue to monitor on IV hydromorphone prn. Will convert to po regimen tomorrow to make sure pain is a dequately controlled for discharge. (2) Generalized weakness: With metastatic prostate cancer, protein calorie malnutrition, anemia. He is participating in PT. He has had some improvement in appetite while on steroid. (3) Constipation: On senna and miralax. He has been reluctant to use miralax. Monitor. (4) Palliative care encounter: Receiving Nplate today for ITP. Platelet count has been stable in mid 100s He has expressed that he would want to talk to Dr. Easton as an outpatient about further options though he does understand that they are limited and that treatment would be palliative. His also understands and supports whatever decision he would make regarding treatment. (5) Prostate cancer metastatic to bone: Admission and Anticipated Discharge Date Admission Date: July 20, 2020 Subjective Having less pain today. Was able to ambulate with walker during PT. Using hydromorphone 2-3 times a day with relief. No BM but he has been reluctant to drink the miralax. He denies abdominal pain or nausea. Review of Systems Review of Systems: [place] Symptom Assessment Scale Pain 3/3 max currently 2/3 Dyspnea 0/3 Nausea 1/3 Fatigue 2/3 Drowsiness 0/3 Palliative Performance Score 50% Physical Exam Constitutional: + thin and + frail appearing; no acute distress ENMT: Mouth: + dry oral mucous membranes Respiratory: normal respiratory effort; no labored breathing Gastrointestinal (Abdomen): Percussion/Palpation: abdomen nontender Musculoskeletal: L spine tenderness, facial grimace with position change upper extremity muscle atrophy Neurologic: no focal motor deficits Psychiatric: Orientation: alert and oriented x 3 Results & Data ([facility]) Vital Signs (Past 12 Hours) Vital Signs Temp Pulse Resp BP Pulse Ox 07/22/20 15:29 97.3 F L 87 18 143/74 H 96 07/22/20 12:18 97.2 F L 83 16 137/75 96 07/22/20 07:45 97.5 F L 84 16 133/63 97 PG Care Time/CCT Total # of Minutes Spent Total Time Spent with Patient: Total time spent is greater than 50% in coordination of care (as documented) at patient's floor/unit and/or counseling patient: Total visit time 40 minutes with more than 50% of time spent on symptom management and support. Coding Level of Care Code 16726 Subseq Hosp Care Lvl 3 Diagnoses Back pain M54.9; G89.29 Back pain laterality: unspecified Back pain location: back pain in unspecified location Chronicity: chronic Generalized weakness R53.1 Constipation K59.01 Constipation type: slow transit constipation Palliative care encounter Z51.5 Prostate cancer metastatic to bone C61; C79.51 (1) Back pain Back pain laterality: unspecified Back pain location: back pain in unspecified location Chronicity: chronic Qualified Code(s): M54.9 - Dorsalgia, unspecified; G89.29 - Other chronic pain (2) Constipation Constipation type: slow transit constipation Qualified Code(s): K59.01 - Slow transit constipation
[2020-07-22] MEDS: ALFUZOSIN HCL 10 MG TAB PO SCH (20:22)
[2020-07-23] MEDS: HYDROmorphone INJ 0.5 MG/0.5 ML SYR IV PRN ×2 (00:46→14:07)
[2020-07-23] MEDS: CALCIUM 600MG + VIT D 400 IU TAB PO SCH (07:50)
[2020-07-23] MEDS: dexAMETHasone 6 MG in SYRINGE 0 ML IV SCH (07:50)
[2020-07-23] MEDS: POLYETHYLENE (MIRALAX) 17 GM PACK PO SCH ×2 (07:51→21:02)
[2020-07-23] MEDS: ENOXAPARIN INJ 40 MG/0.4 ML SYR SQ SCH (07:51)
[2020-07-23] MEDS: LIDOCAINE 5% 1 PATCH TD SCH (07:51)
[2020-07-23] MEDS: MEGESTROL ACETATE 40 MG TAB PO SCH (07:51)
[2020-07-23] MEDS: NYSTATIN SUSP 500,000 U/5 ML UDC PO SCH ×4 (07:52→21:02)
[2020-07-23] MEDS: DOCUSATE SODIUM/SENNA 50/8.6MG TAB PO SCH ×2 (07:52→21:01)
[2020-07-23] MEDS: DICLOFENAC SOD 1% GEL 100 GM TUBE EXT SCH ×4 (07:52→21:01)
[2020-07-23] MEDS: PANTOprazole 40 MG TAB PO SCH (07:52)
[2020-07-23] MEDS: CEROVITE ADV FORMULA TAB PO SCH ×2 (07:52→21:01)
--- NOTE | 2020-07-23 08:19 | Progress Notes ---
DATE: 07/23/2020 DIAGNOSES: 1. Intractable nausea and vomiting. 2. Progressive hormone responsive metastatic prostate cancer. 3. Anemia of chronic disease. 4. Immune thrombocytopenic purpura. 5. Anorexia. 6. Hypoalbuminemia. SUBJECTIVE: The patient was seen and examined at bedside. I saw in initial consultation on 07/21/2020 admitted for intractable nausea and vomiting attributable to chemotherapy. 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 Engaged in discussion, not only with the patient himself, but also his by telephone yesterday explaining that options are few from a therapeutic standpoint. Perhaps modified Taxotere, but his track record of tolerance is not optimal. He is making slow but sure clinical progress. I will plan to convene with the patient upon discharge and discuss therapeutic options moving forward. I see that the Palliative Service seeing the patient which I agree with. I think based on my discussion with him this morning, I think patient is facing reality and may choose to pursue a palliative route moving forward. OBJECTIVE: GENERAL: A very pleasant 84-year-old gentleman in no acute distress. VITAL SIGNS: Temperature 36.3, pulse 94, respiratory rate 18, blood pressure 135/67. SKIN: Without rash or lesion. HEENT: Oral mucosa without erythema or ulceration. NECK: Supple. HEART: Holosystolic murmur, high pitched heard in the left precordium II/. LUNGS: Clear to auscultation. ABDOMEN: Soft, nontender, nondistended. EXTREMITIES: No clubbing, cyanosis or edema. NEUROLOGIC: Grossly intact. LABORATORY DATA: Pending at the time of dictation. IMPRESSION: 1. Progressing metastatic prostate cancer. 2. Immune thrombocytopenic purpura. 3. Acute dehydration. 4. Intractable nausea and vomiting. 5. Asthenia. 6. Hypoalbuminemia. PLAN: Agree with current medical management. Engaged in discussion with patient at bedside this morning. The patient has unfortunately not tolerated his most current chemotherapeutic regimen and his PSA has continued to rise precipitously. Instructed the hospitalist to obtain bone scan while the patient is in house. He also received his weekly dose of Nplate as instructed for ITP. The Palliative Service has visited with patient. I spoke with patient's on the phone and he is very realistic with his current situation. Advised patient he needs to decide what is more important life quantity or quality moving forward. I believe from my discussion, he is leaning towards the latter. That said, continue medical management and supportive care as currently prescribed. We will plan to convene with patient in the outpatient arena. He will resume Nplate as scheduled. We will review bone scan upon completion. Thank you very much for allowing me to participate in his care. WILIAM
[2020-07-23 09:23] LABS: Basophils # (auto) 0.01 K/uL (0-0.2); Basophils % (auto) 0.1 %; Eosinophils # (auto) 0.05 K/uL (0-0.5); Eosinophils % (auto) 0.4 %; Hemoglobin 8.9 g/dL (14.0-18.0); Immature Granulocytes # (auto) 0.18 K/uL (0.00-0.02); Immature Granulocytes % (auto) 1.3 %; Lymphocytes # (auto) 1.26 K/uL (1.2-3.4); Lymphocytes % (auto) 9.2 %; Mean Corpuscular Hemoglobin 32.1 pg (25-34); Mean Corpuscular Volume 97.5 fL (80-100); Mean Platelet Volume 9.7 fL (7.4-10.4); Monocytes % (auto) 5.9 %; Neutrophils # (auto) 11.34 K/uL (1.4-6.5); Neutrophils % (auto) 83.1 %; Nucleated RBC % (auto) 3.7 %; Platelet Count 126 K/uL (130-400); RDW Coefficient of Variation 17.2 % (11.5-14.5); RDW Standard Deviation 59.9 fL (36.4-46.3); Red Blood Count 2.77 M/uL (4.7-6.1); White Blood Count 13.64 K/uL (4.8-10.8)
[2020-07-23 09:56] LABS: Howell-Jolly Bodies 2+; Poikilocytosis Present; Toxic Vacuolation 2+
[2020-07-23] MEDS ORDERED: HYDROmorphone HCL 2 MG TAB PO PRN (11:59)
--- NOTE | 2020-07-23 12:18 | Palliative Care Progress Note ---
Date of Service July 23, 2020 Assessment & Plan (1) Back pain: Improved with steroid, topical lidoderm and prn hydromorphone. Will convert to po today in anticipation of possible d/c home tomorrow. Discussed premedication prior to bone scan with RN. (2) Nausea & vomiting: Improved. Appetite somewhat better. (3) Constipation: On miralax and senna. He is reluctant to use miralax and fluid intake is low. Could consider lactulose if this regimen is not effective. (4) Prostate cancer: (5) Immune thrombocytopenia: (6) Palliative care encounter: He talked with Dr. Easton this morning about treatment plan. He feels that quality of life is more important at this point in time and would not want to look at other cancer treatments at this time. He does have significant benefit from Nplate and would want to continue with that. Unfortunately, that would likely preclude him from qualifying for hospice care. He could be discharged with home care and palliative care to follow as outpatient. I spoke with his on the phone and answered her question about hospice vs palliative care and planning for discharge. Admission and Anticipated Discharge Date Admission Date: July 20, 2020 Subjective Feels like he needs to move his bowels today. Denies nausea. Pain "ok". He has had dilaudid x 3 in last 24 hours. He's been prepped for bone scan this afternoon. He reports that he feels tired after sitting up to have breakfast. He did eat a full serving of cheerios this morning. Review of Systems Review of Systems: [place] Symptom Assessment Scale Pain 1/3 Nausea 0/3 Dyspnea 0/3 Anorexia 1/3 Fatigue 2/3 Anxiety 1/3 Palliative Performance Score 40% Physical Exam Constitutional: + thin and + frail appearing ENMT: Mouth: + dry oral mucous membranes Respiratory: normal respiratory effort; no labored breathing Gastrointestinal (Abdomen): Percussion/Palpation: abdomen nontender Musculoskeletal: Extremities: + muscle atrophy Skin: warm and dry Neurologic: no focal motor deficits Psychiatric: Orientation: alert and oriented x 3 Results & Data ([facility]) Vital Signs (Past 12 Hours) Vital Signs Temp Pulse Resp BP BP Pulse Ox 07/23/20 07:32 97.3 F L 94 H 18 135/67 95 07/23/20 00:43 97.7 F 88 16 146/72 H 94 PG Care Time/CCT Total # of Minutes Spent Total Time Spent with Patient: Total time spent is greater than 50% in coordination of care (as documented) at patient's floor/unit and/or counseling patient:Total time spen 40 minutes with more than 50% of time spent on support, plan of care, symptom management. Coding Level of Care Code 37394 Subseq Hosp Care Lvl 3 Diagnoses Back pain M54.9; G89.29 Back pain laterality: unspecified Back pain location: back pain in unspecified location Chronicity: chronic Nausea & vomiting R11.2 Vomiting Intractability: non-intractable Vomiting type: unspecified Constipation K59.00 Prostate cancer C61 Immune thrombocytopenia D69.3 Palliative care encounter Z51.5 (1) Back pain Back pain laterality: unspecified Back pain location: back pain in unspecified location Chronicity: chronic Qualified Code(s): M54.9 - Dorsalgia, unspecified; G89.29 - Other chronic pain (2) Nausea & vomiting Vomiting Intractability: non-intractable Vomiting type: unspecified Qualified Code(s): R11.2 - Nausea with vomiting, unspecified
--- NOTE | 2020-07-23 12:42 | Hospitalist Progress Note ---
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 Increasing bone mets despite treatment. Dr Easton consult appreciated. Nuclear medicine bone scan pending. Palliative care consult appreciated. For bone pain , added dexamethasone 6mg IV daily. We will switch to oral dosing at discharge Cont hydrocodone prn. Cont dilaudid prn. IV dosing switched to oral dosing today per palliative care. Haldol or zofran prn N/V. (2) Acute dehydration: Received IV hydration Serial labs (3) Generalized weakness: due to advanced prostate cancer, dehydration, poor appetite/malnutrition Treat pain. Supportive care. Hopefully steroids will help weakness and appetite. (4) Nausea & vomiting: Could be due to opiate-induced constipation. Can't rule out gastritis. PPI for upper GI. Miralax, senna, colace for bowel regimen. Consider relistor if stools do not improve with above. (5) Aortic stenosis, moderate: Doubt contributing to symptoms/presentation. (6) Severe protein-calorie malnutrition: 2nd to advanced cancer. Hopefully steroids will help appetite a bit. 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 Bone pain is fairly well controlled. Case discussed with palliative care. Dilaudid will be switched from IV dosing to oral dosing today and adjusted as needed. Nuclear bone scan should be done today. October gastro was started yesterday, July 22. Hopefully home tomorrow, July 24 Review of Systems Review of Systems: Constitutional-no fever or chills ENT-no blurred vision, no double vision, no epistaxis, no sore throat Respiratory-no cough, no wheezing, no shortness of breath Cardiac-no palpitations, no chest pain, no syncope GI-no nausea, vomiting, diarrhea, melena, hematochezia -no urinary retention, no urinary incontinence, no dysuria, no hematuria Musculoskeletal-diffuse bone pain from metastatic disease Skin-no bruising, no rashes, no pruritus Neuro-generalized weakness. No focal deficits Psych-no depression, no anxiety Physical Exam Physical Exam: General-alert and oriented x3, no fevers, no chills HEENT-head atraumatic and normocephalic, TMs intact bilaterally, pupils equal and reactive to light, extraocular muscles intact Neck-no lymphadenopathy or thyromegaly, trachea midline Chest-clear to auscultation percussion. No rales wheezing or rhonchi Cardiac-regular rate and rhythm, normal S1 and S2, no murmurs Abdomen-normal bowel sounds, nontender, no hepatosplenomegaly Extremities-no cyanosis, clubbing, or edema Neuro-cranial nerves II through XII intact, motor and sensory function within normal limits, strength symmetrical with generalized weakness, no focal deficits Psych-normal affect, normal mood Results & Data Results & Data ([facility]) Vital Signs (Past 12 Hours) Vital Signs Temp Pulse Resp BP BP Pulse Ox 07/23/20 07:32 36.3 C L 94 H 18 135/67 95 07/23/20 00:43 36.5 C 88 16 146/72 H 94 Laboratory Results 07/23/20 09:11 07/22/20 05:46 PG Care Time/CCT Total # of Minutes Spent Total Time Spent with Patient: Total time spent is greater than 50% in coordination of care (as documented) at patient's floor/unit and/or counseling patient: Coding Level of Care Code 99523 Subseq Hosp Care Lvl 2 Diagnoses Prostate cancer metastatic to bone C61; C79.51 Acute dehydration E86.0 Generalized weakness R53.1 Nausea & vomiting R11.2 Vomiting Intractability: non-intractable Vomiting type: unspecified Aortic stenosis, moderate I35.0 Severe protein-calorie malnutrition E43 Celiac disease K90.0 Back pain M54.9; G89.29 Back pain laterality: unspecified Back pain location: back pain in unspecified location Chronicity: chronic Shoulder pain, left M25.512 H/O splenectomy Z90.81 Candidiasis of mouth and esophagus B37.81; B37.0 DVT prophylaxis Z29.9 (1) Nausea & vomiting Vomiting Intractability: non-intractable Vomiting type: unspecified Qualified Code(s): R11.2 - Nausea with vomiting, unspecified (2) Back pain Back pain laterality: unspecified Back pain location: back pain in unspecified location Chronicity: chronic Qualified Code(s): M54.9 - Dorsalgia, unspecified; G89.29 - Other chronic pain
--- NOTE | 2020-07-23 15:25 | Nuclear Medicine Report ---
WHOLE-BODY NUCLEAR BONE SCAN CLINICAL HISTORY: Prostate cancer. COMPARISON STUDY: Nuclear bone scan dated 11/13/2019. Abdominal CT dated 02/15/2018. TECHNIQUE: Three hours following the IV administration of 26.6 mCi of technetium 99m MDP, whole body nuclear bone scan was performed in the anterior and posterior projections. FINDINGS: Again seen are findings of multifocal osseous metastatic disease. Lesions within the right proximal h umerus as well as the right proximal femur are new from previous. There is increased activity within the sacral lesions. Activity within the thoracolumbar spine and calvarium has diminished from previou s, as has bilateral rib activity. Typically degenerative uptake is identified in the shoulders, hips, and ankles. Degenerative change a nd scoliosis are noted in the thoracic spine. There is expected excreted activity within the renal collecting system and bladder. The right renal c ollecting system appears hydronephrotic. IMPRESSION: 1. Again seen are findings consistent with multifocal osseous metastatic disease. 2. New lesions are seen within the right humerus and the right proximal femur. 3. Additional foci of activity have waxed and waned as compared to previous. See above. 4. Suspect right-sided hydronephrosis. Consider renal ultrasound in follow-up. ACT 112: Negative or not required by law. Electronically signed by: Ian Hills M.D. 07/23/2020 3:24 PM
[2020-07-23] MEDS: ALFUZOSIN HCL 10 MG TAB PO SCH (21:01)
[2020-07-24 07:23] LABS: Basophils # (auto) 0.03 K/uL (0-0.2); Basophils % (auto) 0.2 %; Eosinophils # (auto) 0.07 K/uL (0-0.5); Eosinophils % (auto) 0.6 %; Hematocrit (blood only) 26.2 % (42-52); Hemoglobin 8.8 g/dL (14.0-18.0); Immature Granulocytes # (auto) 0.22 K/uL (0.00-0.02); Immature Granulocytes % (auto) 1.8 %; Lymphocytes # (auto) 1.96 K/uL (1.2-3.4); Lymphocytes % (auto) 15.7 %; Mean Corpuscular Hemoglobin 32.7 pg (25-34); Mean Corpuscular Hgb Conc 33.6 g/dL (32-36); Mean Corpuscular Volume 97.4 fL (80-100); Mean Platelet Volume 9.1 fL (7.4-10.4); Monocytes # (auto) 1.34 K/uL (0.11-0.59); Monocytes % (auto) 10.8 %; Neutrophils # (auto) 8.84 K/uL (1.4-6.5); Neutrophils % (auto) 70.9 %; Nucleated RBC # (auto) 0.73 K/uL (0-0); Nucleated RBC % (auto) 5.9 %; Platelet Count 114 K/uL (130-400); RDW Coefficient of Variation 17.5 % (11.5-14.5); RDW Standard Deviation 60.7 fL (36.4-46.3); Red Blood Count 2.69 M/uL (4.7-6.1); White Blood Count 12.46 K/uL (4.8-10.8)
[2020-07-24 07:34] VITALS: BP 144/70; PULSE 80; TEMP 97.5; O2SAT 97
[2020-07-24 07:50] LABS: BUN Creatinine Ratio 23.8 (10-20); Calcium 7.4 mg/dl (8.5-10.1); Creatinine Clr Calc Pharmacy 51.1 ml/min; Est GFR (African American) 89.4; Est GFR (Non-African American) 77.1; Potassium 4.3 mmol/L (3.5-5.1)
[2020-07-24 08:05] LABS: Howell-Jolly Bodies 1+; Ovalocytes 1+; Poikilocytosis Present
[2020-07-24] MEDS: dexAMETHasone 6 MG in SYRINGE 0 ML IV SCH (08:18)
[2020-07-24] MEDS: CALCIUM 600MG + VIT D 400 IU TAB PO SCH (08:19)
[2020-07-24] MEDS: LIDOCAINE 5% 1 PATCH TD SCH (08:19)
[2020-07-24] MEDS: CEROVITE ADV FORMULA TAB PO SCH (08:20)
[2020-07-24] MEDS: ENOXAPARIN INJ 40 MG/0.4 ML SYR SQ SCH (08:20)
[2020-07-24] MEDS: POLYETHYLENE (MIRALAX) 17 GM PACK PO SCH (08:20)
[2020-07-24] MEDS: MEGESTROL ACETATE 40 MG TAB PO SCH (08:20)
[2020-07-24] MEDS: DOCUSATE SODIUM/SENNA 50/8.6MG TAB PO SCH (08:21)
[2020-07-24] MEDS: PANTOprazole 40 MG TAB PO SCH (08:21)
[2020-07-24] MEDS: NYSTATIN SUSP 500,000 U/5 ML UDC PO SCH ×2 (08:21→12:24)
[2020-07-24] MEDS: DICLOFENAC SOD 1% GEL 100 GM TUBE EXT SCH ×2 (08:21→12:24)
--- NOTE | 2020-07-24 12:22 | Discharge Summary ---
Date of Service July 24, 2020 Admission HPI Per Admitting Provider Levi Brown is an 84-year-old male with stage IV prostate cancer who presents to the emergency room with generalized weakness, nausea, poor appetite, early satiety, back pain and right knee pain. The patient was here just 11 days previously with similar symptoms. He was diagnosed with constipation at the time received an enema with mild improvement of his symptoms and was subsequently discharged home. He reports main pain currently in his right knee which has been going on just for the last 3 days. Mostly when he walks, no pain at rest. No radicular pain from his back but also having severe back pain which has been ongoing and progressive for much longer. Regarding his nausea he reports early satiety and poor appetite which is progressively been getting worse over period of months with considerable weight loss during this time. He denies any change to his bowel habit but has been having increasing problems with constipation but reports a normal bowel movement yesterday. He denies any melena or bright red blood in stool. He is celiac and reports good compliance with a gluten-free diet. He denies any abdominal pain. Regarding his stage IV prostate cancer he reports switching from Zytiga to Xtandi 1 month ago. Does not feel this significantly worsened his nausea. He does report being on Xgeva once monthly and Lupron once monthly and thinks he is due this week. 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 Principal Diagnosis metastatic prostate cancer to bone, bone pain Discharge Exam Constitutional + ill appearing, + thin, + cachectic and + frail appearing Eyes PERRL, conjunctivae normal, anicteric sclerae ENMT external ear and nose normal, oropharynx normal Neck trachea midline, no thyromegaly Respiratory normal respiratory effort, lungs clear to auscultation Cardiovascular RRR, no murmur, no edema Gastrointestinal (Abdomen) normal bowel sounds, soft, nontender, no hepatosplenomegaly Musculoskeletal generalized weakness and atrophy Skin no rashes, warm and dry Neurologic CN's II-XI intact bilaterally Psychiatric A+Ox3, euthymic affect Discharge Data Allergies Allergy/AdvReac Type Severity Reaction Status Date / Time gluten Allergy Intermediate rash Verified 07/20/20 14:06 Consultations 07/20/20 19:33 Consult Oncology Routine Consult Palliative Care Routine 07/22/20 09:17 Consult Case Management - Discharge Planning Routine Hospital Course (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 Increasing bone mets despite treatment. Dr Easton consult appreciated. Nuclear medicine bone scan shows progression of disease as expetced. Palliative care consult appreciated. For bone pain , added dexamethasone 6mg IV daily. We will switch to oral dosing at discharge Cont hydrocodone prn. Cont dilaudid prn. IV dosing switched to oral dosing 2/4 per palliative care. Haldol or zofran prn N/V. (2) Acute dehydration: Received IV hydration Serial labs (3) Generalized weakness: due to advanced prostate cancer, dehydration, poor appetite/malnutrition Treat pain. Supportive care. Hopefully steroids will help weakness and appetite. (4) Nausea & vomiting: Could be due to opiate-induced constipation. Can't rule out gastritis. PPI for upper GI. Miralax, senna, colace for bowel regimen. Consider relistor if stools do not improve with above. (5) Aortic stenosis, moderate: Doubt contributing to symptoms/presentation. (6) Severe protein-calorie malnutrition: 2nd to advanced cancer. Hopefully steroids will help appetite a bit. 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 (11) Candidiasis of mouth and esophagus: Treated with nystatin 5cc qid (12) DVT prophylaxis: lovenox 40mg daily - high risk of VTE Disposition: discharge to home todayJuly 24 Total Time Total Time Spent Total Time Spent (In Minutes): 35 minutes Total Time Includes: Examination of the Patient, Discharge Planning, Medication Reconciliation and Communication With Other Providers Discharge Plan Discharge Items Patient Disposition: Home - Home Health Services Reason For Visit: METASTATIC CANCER RELATED PAIN AND NAUSEA Follow-up/Referrals: Pedro Abel III, MD [Primary Care Provider] - Medications and DC Order Prescriptions: No Action Metamucil Plus Calcium 1-60 gram-mg capsule 2 cap PO QAM Qty: 0 RF: 0 calcium carbonate-vitamin D3 [Calcium 600 + D(3)] 600 mg(1,500mg) -200 unit tablet 2 tab PO QAM Qty: 0 RF: 0 furosemide 20 mg tablet 20 mg PO DAILY PRN (Reason: edema) Qty: 14 RF: 2 leuprolide (6 month) 45 mg syringe kit 45 mg IM Q6MO RF: 0 Yonsa 125 mg tablet 500 mg PO QAM RF: 0 oxycodone 5 mg tablet 5 mg PO Q4H PRN (Reason: pain) Qty: 30 RF: 0 pantoprazole 20 mg tablet,delayed release (DR/EC) 20 mg PO DAILY Qty: 90 RF: 3 PreserVision AREDS 7,160-113-100 nlli-xp-axdi tablet 1 tab PO BID RF: 0 glucosamine sulfate 2KCl 500 mg capsule 500 mg PO PM RF: 0 alfuzosin 10 mg tablet extended release 24 hr 10 mg PO PM RF: 0 mecobal-levomefolat Ca-B6 phos 3-35-2 mg Tablet 1 tab PO BID RF: 0 ondansetron 8 mg tablet,disintegrating 8 mg PO Q8H PRN (Reason: nausea and vomiting) 15 Days Qty: 45 RF: 0 omeprazole 20 mg tablet,disintegrat, delay rel 20 mg PO DAILY Qty: 30 RF: 0 hydrocodone-acetaminophen 7.5-325 mg/15 mL solution 10 ml PO Q6H PRN (Reason: pain) Qty: 250 RF: 0 Admission Data Admit Date/Time: 07/20/20 17:13 Attending Provider: Jamie Farris Admit Provider: Emiliano Ramesh Primary Care Provider: Pedro Abel III Other Providers: Tyler Easton V. ; Eliana Jones ; [facility] Coding Level of Care Code D/C Day Management >30 mins Diagnoses Prostate cancer metastatic to bone C61; C79.51 Acute dehydration E86.0 Generalized weakness R53.1 Nausea & vomiting R11.2 Vomiting Intractability: non-intractable Vomiting type: unspecified Aortic stenosis, moderate I35.0 Severe protein-calorie malnutrition E43 Celiac disease K90.0 Back pain M54.9; G89.29 Back pain laterality: unspecified Back pain location: back pain in unspecified location Chronicity: chronic Shoulder pain, left M25.512 H/O splenectomy Z90.81 Candidiasis of mouth and esophagus B37.81; B37.0 DVT prophylaxis Z29.9
--- NOTE | 2020-07-24 12:35 | Palliative Care Progress Note ---
Date of Service July 24, 2020 Assessment & Plan (1) Constipation: Improved with miralax BID. (2) Back pain: Controlled with dexamethasone and prn hydromorphone. He is able to sit up and pivot to commode without pain,. (3) Palliative care encounter: Mr. Brown is anxious about going home today and whether things will be "controlled". We discussed his pain medications and these can be adjusted if needed for his comfort though he has done well with trial here. We discussed home health support and per watch caser, he will have [facility] palliative care support at home. He is also worried about fatigue. We discussed taking his time and resting when needed and he is now asking for assistance with getting dressed to go home. Will f/u with outpatient palliative care by phone on Monday and set up f/u as appropriate. Admission and Anticipated Discharge Date Admission Date: July 20, 2020 Subjective Had bone scan yesterday which shows new lesions in right humerus and right femur in addition to previous lesions. He reports that oral hydromorphone was effective for pain. He has had BM x 2 Review of Systems Review of Systems: [place] Symptom Assessment Scale Pain 1/3 Nausea 0/3 Dyspnea 0/3 Fatigue 2/3 Anxiety 1/3 Palliative Performance Score 40% Physical Exam Constitutional: no acute distress Respiratory: no labored breathing Cardiovascular: Extremities: no edema Gastrointestinal (Abdomen): Percussion/Palpation: abdomen nontender Musculoskeletal: Extremities: + muscle atrophy Skin: no rashes, warm and dry Neurologic: no focal motor deficits Psychiatric: Orientation: alert and oriented x 3 Affect: + anxious affect Results & Data ([facility]) Vital Signs (Past 12 Hours) Vital Signs Temp Pulse Resp BP Pulse Ox 07/24/20 07:33 97.5 F L 80 18 144/70 H 97 PG Care Time/CCT Total # of Minutes Spent Total Time Spent with Patient: Total time spent is greater than 50% in coordination of care (as documented) at patient's floor/unit and/or counseling patient: Total time spent 40 min with more than 50% of time spent on symptom management, support, coordination of care. Coding Level of Care Code 71620 Subseq Hosp Care Lvl 3 Diagnoses Constipation K59.00 Back pain M54.9; G89.29 Back pain laterality: unspecified Back pain location: back pain in unspecified location Chronicity: chronic Palliative care encounter Z51.5 (1) Back pain Back pain laterality: unspecified Back pain location: back pain in unspecified location Chronicity: chronic Qualified Code(s): M54.9 - Dorsalgia, unspecified; G89.29 - Other chronic pain
== END 2020-07-24 13:50 | disposition home health service (06) | DRG 722 ==
LOC: ED 12:35 → 2W 17:13 → SUATTDRO 17:13 → 2W 19:07